=== PATIENT | male | born 1990 | race Two or more races ===

== ENCOUNTER 2017-05-24 17:30 | Inpatient (IN) | payer OTHER ==
[~2017-05-24] VITALS: Ht 177.8 cm; Wt 62.6 kg
[2017-05-24] VITALS (22 sets, daily range): BP systolic 109–205; BP diastolic 45–183
[2017-05-24] MEDS ORDERED: Midazolam 2mg/2ml Inj ONE (17:37)
[2017-05-24] MEDS ORDERED: Midazolam 2mg/2ml Inj IVP ONE ×2 (17:45→19:00)
--- NOTE | 2017-05-24 17:59 | Emergency Room Report ---
History of Present Illness General Chief Complaint: Seizure Source: EMS Present Illness HPI 27-year-old male, no significant past medical history, brought by EMS for not feeling well. When EMS arrived, patient was ANO x4, and routes of the hospital , patient had a generalized tonic-clonic seizure, less than 1 minute, after that patient now altered, yelling and screaming, not responsive. EMS states that patient feels that he took too much of his pre-workout supplementation. Brand name is called "Power Switch". Contains multiple ingredients including caffeine, taurine, green tea, extracts and many more unknown. Allergies: Coded Allergies: No Known Allergies (Unverified , 05/24/17) Patient History Past Medical History: see triage record Past Surgical History: none Pertinent Family History: none Reviewed Nursing Documentation: PMH: Agreed, PSxH: Agreed Nursing Documentation-PMH Past Medical History: No Stated History Review of Systems All Other Systems: limited Physical Exam Vital Signs Date Time Temp Pulse Resp B/P (MAP) Pulse Ox O2 Delivery O2 Flow Rate FiO2 05/24/17 17:23 94 20 148/88 98 Room Air Sp02 EP Interpretation: reviewed, normal General Appearance: severe distress, other - Young male, altered, very agitated , yelling screaming, not responsive, not having any eye contact Head: normocephalic, atraumatic Eyes: bilateral eye normal inspection, bilateral eye PERRL, bilateral eye EOMI ENT: normal ENT inspection, normal pharynx, normal voice, moist mucus membranes Neck: normal inspection, full range of motion, supple, no meningismus Respiratory: normal inspection, lungs clear, normal breath sounds, no respiratory distress, no retraction, no wheezing, speaking full sentences, chest symmetrical Cardiovascular #1: normal inspection, regular rate, rhythm, no edema, normal capillary refill Cardiovascular #2: 2+ radial (R), 2+ radial (L) Gastrointestinal: normal inspection, non tender, soft, non-distended, no guarding Genitourinary: no CVA tenderness Musculoskeletal: back normal, other - R knee effusion noted Neurologic: other - not oriented, screaming, snapping b/l hands, moving all ext spont. +muscle rigidity intermittently Psychiatric: other - agitated and not responsive Skin: normal inspection, normal color, no rash, warm/dry, well hydrated, normal turgor Procedures Critical Care Time Critical Care Time 40 minutes of CC time 27-year-old male, altered mental status, after taking a workout supplement, positive for amphetamines VS: Tachycardic PLAN: IV access, labs, lactate, troponin, Blood/Urine Cx, Abx, IVF Anticipate admission to ICU CC time also includes review of labs, review of EMR, discussion with family and paperwork from SNF, d/w hospitalist CC could include dosing of pressors, additional Abx CC time does not include procedures Intubation Intubation : Consent: Emergent Intubation Method: orotracheal Tube Size (cm): 7.0 Medications: Etomidate, Rocuronium Breath Sounds after Intubation: equal Intubation Complications: no complications Post Intubation Xray: Yes Attempts: One Patient Tolerated: Well Complications: Other - pt with edematous airway, intubated with glidescope with size 7 ETT Lumbar Puncture Consent: Emergent Location: L3-L4 Prep: bedadine Needle Size: 1 1/2 CSF: clear Post-Procedure: recumbent position Attempts: One Complications: none Patient Tolerated: Well Medical Decision Making Diagnostic Impression: Primary Impression: Altered mental status Additional Impressions: Hyponatremia Rhabdomyolysis Methamphetamine abuse Effusion, right knee Hypokalemia ER Course 27-year-old male with p/w seizure, altered mental status, after overdosing on his free workout medication DDX: Electrolyte disturbance: hypoglycemia vs. hyponatremia vs. hypocalcemia vs. hypomagnesemia Cardiac: Arrythmia/acs Intracranial pathology: intracranial bleed, stroke, meningitis Tox vs. serotonin syndrome Plan: BGM EKG, UCG Labs, tox labs Consider CT Ativan PRN / anti seizure meds ER course: received versed for agitation patient intubated for ams and airway protection with 7.0 ETT as patients airway and tongue extremely edematous +hyponatremia noted on labs -- hypertonic saline given over 10 minutes hypertonic saline boluses given x 3 total noted to have rhabdo - NS boluses given to patient hypokalemia supplemented keppra given for seizure I spoke to poison control: stated with overdoses of pre-workout supplementation and seizures, tx with benzos and fluids. also if persisent seizures to give phenobarbital patient still having possible seizure like activity --- phenobarbital given LP performed - pending resulted Signed out patient o Dr Pierce -follow up CSF results -admit to ICU Disposition: Pt to be admitted to ICU Informed Dr. Hammer EKG Diagnostic Results EP Interpretation: Yes Rate: normal Rhythm: NSR ST Segments: No acute changes ASA given to patient: No Rhythm Strip EP Interpretation: Yes Rate: 81 Rhythm: NSR, no PVCs, no ectopy Chest X-ray CXR: Ordered: Yes 1 view Indication: ams EP interpretation: Yes Interpretation: No consolidation, no effusion, no PTX, no acute cardiopulmonary disease Impression: No acute disease Electronically signed by Michi Mancia MD Chest X-ray CXR: Ordered: Yes 1 view Indication: ETT EP interpretation: Yes Interpretation: No consolidation, no effusion, no PTX, no acute cardiopulmonary disease, ETT in appropriate position Impression: No acute disease Electronically signed by Michi Mancia MD Laboratory Tests Test 05/24/17 18:00 05/24/17 19:15 White Blood Count 20.7 K/UL (4.8-10.8) H Red Blood Count 4.04 M/UL (4.70-6.10) L Hemoglobin 12.5 G/DL (14.2-18.0) L Hematocrit 37.0 % (42.0-52.0) L Mean Corpuscular Volume 91 FL (80-99) Mean Corpuscular Hemoglobin 31.0 PG (27.0-31.0) Mean Corpuscular Hemoglobin Concent 33.9 G/DL (32.0-36.0) Red Cell Distribution Width 10.8 % (11.6-14.8) L Platelet Count 254 K/UL (150-450) Mean Platelet Volume 6.4 FL (6.5-10.1) L Neutrophils (%) (Auto) % (45.0-75.0) Lymphocytes (%) (Auto) % (20.0-45.0) Monocytes (%) (Auto) % (1.0-10.0) Eosinophils (%) (Auto) % (0.0-3.0) Basophils (%) (Auto) % (0.0-2.0) Differential Total Cells Counted 100 Neutrophils % (Manual) 64 % (45-75) Lymphocytes % (Manual) 15 % (20-45) L Monocytes % (Manual) 13 % (1-10) H Eosinophils % (Manual) 0 % (0-3) Basophils % (Manual) 0 % (0-2) Band Neutrophils 8 % (0-8) Platelet Estimate Adequate Platelet Morphology Normal Red Blood Cell Morphology Normal Urine Color Pale yellow Urine Appearance Slightly cloudy Urine pH 5 (4.5-8.0) Urine Specific [place] 1.010 (1.005-1.035) Urine Protein Negative (NEGATIVE) Urine Glucose (UA) 3+ (NEGATIVE) H Urine Ketones 3+ (NEGATIVE) H Urine Occult Blood 5+ (NEGATIVE) H Urine Nitrite Negative (NEGATIVE) Urine Bilirubin Negative (NEGATIVE) Urine Urobilinogen Normal MG/DL (0.0-1.0) Urine Leukocyte Esterase Negative (NEGATIVE) Urine RBC 0-2 /HPF (0 - 0) H Urine WBC 0-2 /HPF (0 - 0) Urine Squamous Epithelial Cells None /LPF (NONE/OCC) Urine Amorphous Sediment Moderate /LPF (NONE) H Urine Bacteria Few /HPF (NONE) Troponin I 0.000 ng/mL (0.000-0.056) Urine Opiates Screen Negative (NEGATIVE) Urine Barbiturates Screen Negative (NEGATIVE) Phencyclidine (PCP) Screen Negative (NEGATIVE) Urine Amphetamines Screen Positive (NEGATIVE) H Urine Benzodiazepines Screen Negative (NEGATIVE) Urine Cocaine Screen Negative (NEGATIVE) Urine Marijuana (THC) Screen Negative (NEGATIVE) Sodium Level 111 MMOL/L (136-145) *L Potassium Level 3.0 MMOL/L (3.5-5.1) L Chloride Level 78 MMOL/L (98-107) L Carbon Dioxide Level 21 MMOL/L (21-32) Anion Gap 12 mmol/L (5-15) Blood Urea Nitrogen 9 mg/dL (7-18) Creatinine 1.1 MG/DL (0.55-1.30) Estimate Glomerular Filtration Rate > 60 mL/min (>60) Glucose Level 182 MG/DL (74-106) H Lactic Acid Level 4.50 mmol/L (0.66-2.22) H Calcium Level 7.2 MG/DL (8.5-10.1) L Total Bilirubin 0.3 MG/DL (0.2-1.0) Aspartate Amino Transferase (AST) 83 U/L (15-37) H Alanine Aminotransferase (ALT) 31 U/L (12-78) Alkaline Phosphatase 101 U/L (46-116) Total Creatine Kinase 3402 U/L (26-308) H Total Protein 6.9 G/DL (6.4-8.2) Albumin 3.6 G/DL (3.4-5.0) Globulin 3.3 g/dL Albumin/Globulin Ratio 1.1 (1.0-2.7) Triglycerides Level 53 MG/DL (30-150) Salicylates Level 2.8 ug/mL (2.8-20) Acetaminophen Level < 2 MCG/ML (10-30) L Serum Alcohol < 3 mg/dL Last Vital Signs Date Time Temp Pulse Resp B/P (MAP) Pulse Ox O2 Delivery O2 Flow Rate FiO2 05/24/17 17:23 94 20 148/88 98 Room Air Disposition: ADMITTED INPATIENT Condition: Critical Scripts No Active Prescriptions or Reported Meds Referrals: NOT CHOSEN [facility]/,REFERRING (PCP) Michi Mancia M.D. May 24, 2017 17:59
[2017-05-24 18:17] LABS: APPEARANCE,URINE SLIGHTLY CLOUDY; BILIRUBIN, URINE NEGATIVE (NEGATIVE); COLOR,URINE PALE YELLOW; GLUCOSE, URINE (UA) 3+ (NEGATIVE); HEMOGLOBIN 12.5 G/DL (14.2-18.0); KETONES,URINE 3+ (NEGATIVE); LEUKOCYTE ESTERASE ,URINE NEGATIVE (NEGATIVE); MEAN CORPUSCULAR VOLUME 91 FL (80-99); NITRITE,URINE NEGATIVE (NEGATIVE); PH,URINE 5 (4.5-8.0); PLATELET COUNT 254 K/UL (150-450); PROTEIN,URINE NEGATIVE (NEGATIVE); RED BLOOD COUNT 4.04 M/UL (4.70-6.10); RED CELL DISTRIBUTION WIDTH 10.8 % (11.6-14.8); UROBILINOGEN,URINE NORMAL MG/DL (0.0-1.0); WHITE BLOOD COUNT 20.7 K/UL (4.8-10.8)
--- NOTE | 2017-05-24 19:05 | Diagnostic Imaging Report ---
Indication: Altered mental status Technique: XRAY Chest 1v Comparison: None Findings: Heart size and mediastinal contours are within normal limits given technique. There is no focal consolidation, pneumothorax or pleural effusion. Osseous structures demonstrate no acute abnormality. Impression: No radiographic evidence of acute cardiopulmonary disease.
--- NOTE | 2017-05-24 19:41 | Diagnostic Imaging Report ---
Indication: Altered mental status Technique: Continuous helical CT scanning of the head was performed utilizing automated exposure control without intravenous contrast material. Axial and coronal reconstructions were obtained. Comparison: None CT dose: Total DLP 1418.31 mGycm; CTDI vol 70.38 mGy Findings: There is no acute intracranial hemorrhage, mass effect or cortical edema. The ventricles, cisterns and sulci are normal for age. The posterior fossa and fourth ventricle are unremarkable. Sellar and suprasellar regions are grossly unremarkable. There is no depressed skull fracture. Mastoid air cells are clear. Mucosal thickening noted within the maxillary sinuses. Retention cyst versus polyp noted within the right frontal sinus. Impression: No evidence of acute intracranial hemorrhage, mass effect or cortical edema. MRI may be obtained for more sensitive evaluation as clinically indicated. Paranasal sinus disease. The CT scanner at [facility] is accredited by the [employer] and the scans are performed using protocols designed to limit radiation exposure to as low as reasonably achievable to attain images of sufficient resolution adequate for diagnostic evaluation.
[2017-05-24] MEDS ORDERED: DiphenhydrAMINE 50mg/ml Inj IVP ONE (20:00)
[2017-05-24] MEDS ORDERED: LORazepam Inj 2mg/ml 1ml IV ONE ×2 (20:00→22:00)
[2017-05-24 20:06] LABS: ALANINE AMINOTRANSFERASE 31 U/L (12-78); ALBUMIN 3.6 G/DL (3.4-5.0); ALBUMIN/GLOBULIN RATIO 1.1 (1.0-2.7); ALKALINE PHOSPHATASE 101 U/L (46-116); ANION GAP 12 mmol/L (5-15); ASPARTATE AMINO TRANSFERASE 83 U/L (15-37); BILIRUBIN,TOTAL 0.3 MG/DL (0.2-1.0); BLOOD UREA NITROGEN 9 mg/dL (7-18); CALCIUM 7.2 MG/DL (8.5-10.1); CARBON DIOXIDE 21 MMOL/L (21-32); CHLORIDE 78 MMOL/L (98-107); CREATINE KINASE 3402 U/L (26-308); CREATININE 1.1 MG/DL (0.55-1.30)
[2017-05-24 20:07] LABS: SODIUM 111 MMOL/L (136-145)
[2017-05-24] MEDS ORDERED: NaCl 3% 500ml 250 ML IVPB ONE ×3 (20:15→21:45)
[2017-05-24] MEDS ORDERED: Zemuron 50mg/5ml Inj IV ONE ×2 (20:15→21:30)
[2017-05-24] MEDS ORDERED: Etomidate 40mg/20ml Inj IV ONE (20:30)
[2017-05-24] MEDS ORDERED: NACL 3% IV ONE ×2 (20:30→22:00)
[2017-05-24] MEDS ORDERED: levETIRAcetam 1,500 MG in D5W 95 ML IVPB ONE (21:45)
[2017-05-24] MEDS ORDERED: NACL 3% IV PRN (22:00)
[2017-05-24] MEDS ORDERED: Midazolam/D5W 100ml 100 ML IVPB SCH (22:15)
[2017-05-24] MEDS ORDERED: levETIRAcetam 500mg vial IV ONE (23:22)
[2017-05-24 23:47] LABS: HEMATOCRIT 39.7 % (42.0-52.0); HEMOGLOBIN 13.9 G/DL (14.2-18.0); MEAN CORPUSCULAR VOLUME 89 FL (80-99); PLATELET COUNT 257 K/UL (150-450); RED BLOOD COUNT 4.46 M/UL (4.70-6.10); RED CELL DISTRIBUTION WIDTH 10.3 % (11.6-14.8)
[2017-05-24 23:53] LABS: ANION GAP 13 mmol/L (5-15); BLOOD UREA NITROGEN 8 mg/dL (7-18); CALCIUM 6.9 MG/DL (8.5-10.1); CARBON DIOXIDE 21 MMOL/L (21-32); CHLORIDE 82 MMOL/L (98-107); POTASSIUM 3.6 MMOL/L (3.5-5.1)
[2017-05-24 23:59] LABS: SODIUM 116 MMOL/L (136-145)
[2017-05-25] VITALS (64 sets, daily range): BP systolic 97–152; BP diastolic 34–125
--- NOTE | 2017-05-25 00:23 | Emergency Room Report ---
Physical Exam Vital Signs Date Time Temp Pulse Resp B/P (MAP) Pulse Ox O2 Delivery O2 Flow Rate FiO2 05/24/17 17:23 94 20 148/88 98 Room Air 05/24/17 20:40 60 Medical Decision Making Diagnostic Impression: Primary Impression: Altered mental status Additional Impressions: Effusion, right knee Hyponatremia Rhabdomyolysis Methamphetamine abuse Hypokalemia Patellar tendon rupture Lactic acidosis ER Course Patient signed out to me. He came in very active and encephalopathy. He has seizure activity. This most likely secondary to substance abuse and/or from his workout supplements. Question GHB abuse. Patient was intubated. On exam noted to have effusion of his right knee. He was signout to me for x-rays and disposition. He is awaiting ICU bed. On my exam he has effusion to the knee. This range of motion. Patella is high riding. X-ray showed patella tendon rupture. No other fracture. There is effusion. CSF fluid looks clear and no evidence of infection. I will give him more fluid. procedure: Knee Immobilizer indication: Knee injury Description: Knee immobilizer placed the photographic laboratory technician under my supervision. post- splint check is neurovascularly intact. Good alignment. Patient tolerated seizure without a problem Other X-Ray Diagnostic Results Other X-Ray Diagnostic Results : X-Ray ordered: Right knee x-ray # of Views/Limited Vs Complete: 3 View Indication: Pain EP Interpretation: Yes Interpretation: no dislocation, no fractures, other Impression: Other - Patella tendon rupture Electronically Signed by: Dean Pierce MD Last Vital Signs Date Time Temp Pulse Resp B/P (MAP) Pulse Ox O2 Delivery O2 Flow Rate FiO2 05/24/17 22:52 16 05/24/17 20:40 96 60 05/24/17 20:40 Mechanical Ventilator 05/24/17 17:23 148/88 98 Status: improved Disposition: ADMITTED INPATIENT Condition: Critical Scripts No Active Prescriptions or Reported Meds Referrals: NOT CHOSEN [facility]SEL[facility]O/,REFERRING (PCP) DEAN PIERCE M.D. May 25, 2017 00:23
[2017-05-25] MEDS ORDERED: Midazolam/D5W 100ml 100 ML IVPB ONE ×2 (03:15→06:23)
[2017-05-25 05:49] LABS: BASOPHILS % (AUTO) 0.3 % (0.0-2.0); EOSINOPHILS % (AUTO) 0.1 % (0.0-3.0); HEMATOCRIT 37.6 % (42.0-52.0); LYMPHOCYTES % (AUTO) 8.4 % (20.0-45.0); MEAN CORPUSCULAR VOLUME 89 FL (80-99); MONOCYTES % (AUTO) 13.1 % (1.0-10.0); NEUTROPHILS % (AUTO) 78.1 % (45.0-75.0); PLATELET COUNT 231 K/UL (150-450); RED BLOOD COUNT 4.23 M/UL (4.70-6.10); RED CELL DISTRIBUTION WIDTH 10.6 % (11.6-14.8); WHITE BLOOD COUNT 12.3 K/UL (4.8-10.8)
[2017-05-25 06:17] LABS: ALANINE AMINOTRANSFERASE 38 U/L (12-78); ALBUMIN 2.9 G/DL (3.4-5.0); ALKALINE PHOSPHATASE 88 U/L (46-116); ANION GAP 8 mmol/L (5-15); ASPARTATE AMINO TRANSFERASE 131 U/L (15-37); BILIRUBIN,TOTAL 0.4 MG/DL (0.2-1.0); BLOOD UREA NITROGEN 6 mg/dL (7-18); CALCIUM 7.3 MG/DL (8.5-10.1); CARBON DIOXIDE 23 MMOL/L (21-32); CHLORIDE 97 MMOL/L (98-107); CREATINE KINASE 7393 U/L (26-308); CREATININE 0.9 MG/DL (0.55-1.30); POTASSIUM 3.6 MMOL/L (3.5-5.1); SODIUM 128 MMOL/L (136-145); TRIGLYCERIDES 53 MG/DL (30-150)
--- NOTE | 2017-05-25 07:24 | Emergency Room Report ---
History of Present Illness General Chief Complaint: Seizure Source: EMS Present Illness Allergies: Coded Allergies: No Known Allergies (Unverified , 05/24/17) Nursing Documentation-[facility] Past Medical History: No Stated History Physical Exam Vital Signs Date Time Temp Pulse Resp B/P (MAP) Pulse Ox O2 Delivery O2 Flow Rate FiO2 05/24/17 17:23 94 20 148/88 98 Room Air 05/24/17 20:40 60 05/25/17 01:54 97.8 Procedures Critical Care Time Critical Care Time CC time 35 Critical care time endorsed for this patient for AMS thought d/t workout supplement/amphetamines Critical care time includes review of laboratory tests, imaging, review of EMR, review of paperwork from SNF (if available), discussion with patient and family (if available), review of code status/POLS (if available). Critical care time also likely includes assessment of fluid status, stabilization of vital signs, selection and dosing of appropriate antibiotics, selection and dosing of Aspirin/Plavix/Heparin/Lovenox, discussion with PMD/ attending hospitalist/sew out operator. Critical care time does not include any procedures which are documented elsewhere in this EMR. Medical Decision Making Diagnostic Impression: Primary Impression: Altered mental status Additional Impressions: Effusion, right knee Patellar tendon rupture Hyponatremia Rhabdomyolysis Methamphetamine abuse Hypokalemia Lactic acidosis ER Course Received signout from Dr Pierce at 630am Labs reviewed, imaging reviewed - Hyponatremia improving after hypertonic saline - LP negative for infection - Right knee with likely patella tendon rupture-immobilizer was placed - Admitted to ICU with Dr Hammer - Patient continues to board in the ED - Is stable on versed gtt - ABG stable - Gtube was placed by overnight nurse without confirmatory xray - ordered and reviewed, Gtube in place. Rhythm Strip Diag. Results EP Interpretation: yes Rate: 97 Rhythm: NSR, no PVC's, no ectopy Other X-Ray Diagnostic Results Other X-Ray Diagnostic Results : # of Views/Limited Vs Complete: 1 View Indication: Other - Gtbe EP Interpretation: Yes Interpretation: nonspecific bowel gas, other - Gtube in place Impression: No acute disease Electronically Signed by: Dr Stevo Villalobos MD Last Vital Signs Date Time Temp Pulse Resp B/P (MAP) Pulse Ox O2 Delivery O2 Flow Rate FiO2 05/25/17 05:30 99 25 40 05/25/17 01:54 97.8 130/34 98 Mechanical Ventilator Status: improved Disposition: ADMITTED INPATIENT Condition: Critical Scripts No Active Prescriptions or Reported Meds Referrals: NOT CHOSEN [facility]O/,REFERRING (PCP) STEVO VILLALOBOS M.D. May 25, 2017 07:24
--- NOTE | 2017-05-25 07:34 | History & Physical ---
History and Physical History & Physicial 27-year-old male, without significant past medical history, brought by EMS and initially alert and then the patient had a generalized tonic-clonic seizure. The patient became agitated and then became unresponsive. Paramedics states that patient feels that he took too much of his pre-workout supplementation. Brand name is called "Power Switch". Contains multiple ingredients including caffeine, taurine, green tea, extracts and many more unknown. currently on the ventilator and on sedation. Allergies: No Known Allergies (Unverified , 05/24/17) Past Medical History: unknown Past Surgical History: none Pertinent Family History: none Reviewed of systems: unknown Physical WDWN NAD clear breath sounds bilaterally without rhonchi or wheeze [id number] without MRG NABS nontender no HSM no CCE nonfocal sedated Laboratory Tests Test 05/24/17 18:00 05/24/17 19:15 05/24/17 21:45 05/24/17 22:26 White Blood Count 20.7 K/UL (4.8-10.8) H 25.0 K/UL (4.8-10.8) *H Red Blood Count 4.04 M/UL (4.70-6.10) L 4.46 M/UL (4.70-6.10) L Hemoglobin 12.5 G/DL (14.2-18.0) L 13.9 G/DL (14.2-18.0) L Hematocrit 37.0 % (42.0-52.0) L 39.7 % (42.0-52.0) L Mean Corpuscular Volume 91 FL (80-99) 89 FL (80-99) Mean Corpuscular Hemoglobin 31.0 PG (27.0-31.0) 31.3 PG (27.0-31.0) H Mean Corpuscular Hemoglobin Concent 33.9 G/DL (32.0-36.0) 35.1 G/DL (32.0-36.0) Red Cell Distribution Width 10.8 % (11.6-14.8) L 10.3 % (11.6-14.8) L Platelet Count 254 K/UL (150-450) 257 K/UL (150-450) Mean Platelet Volume 6.4 FL (6.5-10.1) L 7.0 FL (6.5-10.1) Neutrophils (%) (Auto) % (45.0-75.0) % (45.0-75.0) Lymphocytes (%) (Auto) % (20.0-45.0) % (20.0-45.0) Monocytes (%) (Auto) % (1.0-10.0) % (1.0-10.0) Eosinophils (%) (Auto) % (0.0-3.0) % (0.0-3.0) Basophils (%) (Auto) % (0.0-2.0) % (0.0-2.0) Differential Total Cells Counted 100 100 Neutrophils % (Manual) 64 % (45-75) 91 % (45-75) H Lymphocytes % (Manual) 15 % (20-45) L 5 % (20-45) L Monocytes % (Manual) 13 % (1-10) H 3 % (1-10) Eosinophils % (Manual) 0 % (0-3) 0 % (0-3) Basophils % (Manual) 0 % (0-2) 0 % (0-2) Band Neutrophils 8 % (0-8) 1 % (0-8) Platelet Estimate Adequate Adequate Platelet Morphology Normal Normal Red Blood Cell Morphology Normal Urine Color Pale yellow Urine Appearance Slightly cloudy Urine pH 5 (4.5-8.0) Urine Specific [place] 1.010 (1.005-1.035) Urine Protein Negative (NEGATIVE) Urine Glucose (UA) 3+ (NEGATIVE) H Urine Ketones 3+ (NEGATIVE) H Urine Occult Blood 5+ (NEGATIVE) H Urine Nitrite Negative (NEGATIVE) Urine Bilirubin Negative (NEGATIVE) Urine Urobilinogen Normal MG/DL (0.0-1.0) Urine Leukocyte Esterase Negative (NEGATIVE) Urine RBC 0-2 /HPF (0 - 0) H Urine WBC 0-2 /HPF (0 - 0) Urine Squamous Epithelial Cells None /LPF (NONE/OCC) Urine Amorphous Sediment Moderate /LPF (NONE) H Urine Bacteria Few /HPF (NONE) Troponin I 0.000 ng/mL (0.000-0.056) Urine Opiates Screen Negative (NEGATIVE) Urine Barbiturates Screen Negative (NEGATIVE) Phencyclidine (PCP) Screen Negative (NEGATIVE) Urine Amphetamines Screen Positive (NEGATIVE) H Urine Benzodiazepines Screen Negative (NEGATIVE) Urine Cocaine Screen Negative (NEGATIVE) Urine Marijuana (THC) Screen Negative (NEGATIVE) Sodium Level 111 MMOL/L (136-145) *L 116 MMOL/L (136-145) *L Potassium Level 3.0 MMOL/L (3.5-5.1) L 3.6 MMOL/L (3.5-5.1) Chloride Level 78 MMOL/L (98-107) L 82 MMOL/L (98-107) L Carbon Dioxide Level 21 MMOL/L (21-32) 21 MMOL/L (21-32) Anion Gap 12 mmol/L (5-15) 13 mmol/L (5-15) Blood Urea Nitrogen 9 mg/dL (7-18) 8 mg/dL (7-18) Creatinine 1.1 MG/DL (0.55-1.30) 1.0 MG/DL (0.55-1.30) Estimat Glomerular Filtration Rate > 60 mL/min (>60) > 60 mL/min (>60) Glucose Level 182 MG/DL (74-106) H 156 MG/DL (74-106) H Lactic Acid Level 4.50 mmol/L (0.66-2.22) H 6.80 mmol/L (0.66-2.22) H Calcium Level 7.2 MG/DL (8.5-10.1) L 6.9 MG/DL (8.5-10.1) L Total Bilirubin 0.3 MG/DL (0.2-1.0) Aspartate Amino Transf (AST/SGOT) 83 U/L (15-37) H Alanine Aminotransferase (ALT/SGPT) 31 U/L (12-78) Alkaline Phosphatase 101 U/L (46-116) Total Creatine Kinase 3402 U/L (26-308) H Total Protein 6.9 G/DL (6.4-8.2) Albumin 3.6 G/DL (3.4-5.0) Globulin 3.3 g/dL Albumin/Globulin Ratio 1.1 (1.0-2.7) Triglycerides Level 53 MG/DL (30-150) Salicylates Level 2.8 ug/mL (2.8-20) Acetaminophen Level < 2 MCG/ML (10-30) L Serum Alcohol < 3 mg/dL Arterial Blood pH 7.377 (7.350-7.450) Arterial Blood Partial Pressure CO2 29.3 mmHg (35.0-45.0) L Arterial Blood Partial Pressure O2 126.2 mmHg (75.0-100.0) H Arterial Blood HCO3 16.8 mmol/L (22.0-26.0) L Arterial Blood Oxygen Saturation 98.1 % (92.0-98.0) H Arterial Blood Base Excess -7.0 Santino Test Positive Test 05/24/17 22:45 05/25/17 05:00 05/25/17 05:47 CSF Appearance Clear CSF Color Straw CSF WBC 2 /CU MM (0-5) CSF RBC 2 /CU MM CSF Neutrophils % % CSF Lymphocytes % % CSF Monocytes % % CSF Crenated Cells % CSF Comment 6 ml CSF Glucose 83 mg/dL (50-80) H CSF Total Protein 42 MG/DL (15-45) White Blood Count 12.3 K/UL (4.8-10.8) #H Red Blood Count 4.23 M/UL (4.70-6.10) L Hemoglobin 13.0 G/DL (14.2-18.0) L Hematocrit 37.6 % (42.0-52.0) L Mean Corpuscular Volume 89 FL (80-99) Mean Corpuscular Hemoglobin 30.7 PG (27.0-31.0) Mean Corpuscular Hemoglobin Concent 34.5 G/DL (32.0-36.0) Red Cell Distribution Width 10.6 % (11.6-14.8) L Platelet Count 231 K/UL (150-450) Mean Platelet Volume 7.6 FL (6.5-10.1) Neutrophils (%) (Auto) 78.1 % (45.0-75.0) H Lymphocytes (%) (Auto) 8.4 % (20.0-45.0) L Monocytes (%) (Auto) 13.1 % (1.0-10.0) H Eosinophils (%) (Auto) 0.1 % (0.0-3.0) Basophils (%) (Auto) 0.3 % (0.0-2.0) Sodium Level 128 MMOL/L (136-145) #L Potassium Level 3.6 MMOL/L (3.5-5.1) Chloride Level 97 MMOL/L (98-107) L Carbon Dioxide Level 23 MMOL/L (21-32) Anion Gap 8 mmol/L (5-15) Blood Urea Nitrogen 6 mg/dL (7-18) L Creatinine 0.9 MG/DL (0.55-1.30) Estimat Glomerular Filtration Rate > 60 mL/min (>60) Glucose Level 126 MG/DL (74-106) H Lactic Acid Level 1.60 mmol/L (0.66-2.22) Calcium Level 7.3 MG/DL (8.5-10.1) L Phosphorus Level 3.0 MG/DL (2.5-4.9) Magnesium Level 1.1 MG/DL (1.8-2.4) L Total Bilirubin 0.4 MG/DL (0.2-1.0) Aspartate Amino Transf (AST/SGOT) 131 U/L (15-37) H Alanine Aminotransferase (ALT/SGPT) 38 U/L (12-78) Alkaline Phosphatase 88 U/L (46-116) Total Creatine Kinase 7393 U/L (26-308) H Total Protein 5.8 G/DL (6.4-8.2) L Albumin 2.9 G/DL (3.4-5.0) L Globulin 2.9 g/dL Albumin/Globulin Ratio 1.0 (1.0-2.7) Triglycerides Level 53 MG/DL (30-150) Arterial Blood pH 7.450 (7.350-7.450) Arterial Blood Partial Pressure CO2 29.3 mmHg (35.0-45.0) L Arterial Blood Partial Pressure O2 194.4 mmHg (75.0-100.0) H Arterial Blood HCO3 19.9 mmol/L (22.0-26.0) L Arterial Blood Oxygen Saturation 99.0 % (92.0-98.0) H Arterial Blood Base Excess -2.9 Santino Test Positive IMPRESSION leukocytosis, likely leukomoid respiratory failure acute encephalopathy seizure hyponatremia rhabdo PLAN IV hydration ventilator management neuro evaluation propofol and fentanyl ativan PRN medications/laboratory data/nursing notes/ICU care reviewed in detail note reviewed and edited care discussed with RN and RT DONNA OLIVA May 25, 2017 07:34
[2017-05-25] MEDS: Midazolam/D5W 100ml 100 ML IVPB SCH ×3 (08:50→14:39)
[2017-05-25] MEDS: levETIRAcetam 500mg/NS100ml 100 ML IVPB SCH ×3 (08:50→19:44)
[2017-05-25] MEDS: Heparin 5000 units/ml inj SUBQ SCH ×2 (08:52→20:08)
--- NOTE | 2017-05-25 09:07 | Diagnostic Imaging Report ---
Indication: NG tube placement Technique: XRAY Chest 1v Comparison: None Findings: Interval NG tube placement. Tip likely in the region of the mid/distal stomach. Heart size is within normal limits. No focal airspace consolidation identified. Bowel gas pattern is nonobstructive. Impression: Interval NG tube placement. Tip in the region of the mid/distal stomach
[2017-05-25] MEDS: Sodium Bicarbonate 100 ML in NS 1000ml 1,000 ML IV SCH ×3 (09:33→23:51)
--- NOTE | 2017-05-25 09:58 | Diagnostic Imaging Report ---
Indication: Status post intubation Technique: XRAY Chest 1v Comparison: Earlier the same day Findings: Interval endotracheal intubation. ET tube tip 3.5 cm above the leo. Heart size and mediastinal contours are stable. There is mild pulmonary vascular congestion. No focal consolidation. No pneumothorax. Impression: Interval endotracheal intubation. ET tube tip 3.5 cm above the leo.
--- NOTE | 2017-05-25 10:27 | Diagnostic Imaging Report ---
Indication: Pain Technique: XRAY Knee 1-2v R Comparison: None Findings: Exam limited by positioning, with obliquity on frontal view and lack of true lateral view. There is significant soft tissue swelling overlying the patella. The patella appears high and laterally displaced. No acute fractures identified Impression: Limited exam due to positioning. Significant soft tissue swelling anterior to the patella with high and lateral location of the patella. These findings may be suggestive of patellar tendon injury/rupture or lateral patellar dislocation. Correlation with physical exam recommended. Better evaluation with complete knee series radiographs recommended or MRI recommended. This corresponds with the preliminary interpretation by the ER physician as documented in the electronic medical record with minor discrepancy. Patient admitted to hospital at time of dictation of the final report.
[2017-05-25] MEDS ORDERED: Acetaminophen 650 MG SUPP RECTAL ONE (10:46)
[2017-05-25] MEDS ORDERED: cefTRIAXone 1 GM in NS 55 ML IVPB ONE (12:15)
--- NOTE | 2017-05-25 12:35 | Emergency Room Report ---
History of Present Illness General Chief Complaint: Seizure Source: EMS Present Illness Allergies: Coded Allergies: No Known Allergies (Unverified , 05/24/17) Nursing Documentation-[facility] Past Medical History: No Stated History Physical Exam Vital Signs Date Time Temp Pulse Resp B/P (MAP) Pulse Ox O2 Delivery O2 Flow Rate FiO2 05/24/17 17:23 94 20 148/88 98 Room Air 05/24/17 20:40 60 05/24/17 22:40 95.0 Procedures Central Line Central Line : Consent: Emergent Central Line Lumen: triple Maximal Sterile Barrier Tech: yes cap, yes mask, yes sterile gown, yes sterile gloves, yes large sterile sheet, yes hand hygiene, yes chlorhexidine prep No Max Barrier Tech Because: emergency insertion Central Line Postion: femoral (R) Complications: none Central Line Post Position: sutured, good blood return Attempts: One Patient Tolerated: Well Complications: None Medical Decision Making Diagnostic Impression: Primary Impression: Altered mental status Additional Impressions: Effusion, right knee Patellar tendon rupture Hyponatremia Rhabdomyolysis Methamphetamine abuse Hypokalemia Lactic acidosis ER Course Informed by staffing assistant that patient developing phlebitis? vs rash to peripheral IVs where IV versed sedation being given. Central line placed and versed transitioned from peripheral IV to central line. Last Vital Signs Date Time Temp Pulse Resp B/P (MAP) Pulse Ox O2 Delivery O2 Flow Rate FiO2 05/25/17 11:30 21 05/25/17 10:35 95 40 05/25/17 10:00 99.5 112/52 100 Mechanical Ventilator Disposition: ADMITTED INPATIENT Condition: Critical Scripts No Active Prescriptions or Reported Meds Referrals: NOT CHOSEN IPA/,REFERRING (PCP) STEVO VERNON M.D. May 25, 2017 12:35
--- NOTE | 2017-05-25 13:27 | Neurology Progress Note ---
Objective Physical Exam Last Vital Signs Date Time Temp Pulse Resp B/P (MAP) Pulse Ox O2 Delivery O2 Flow Rate FiO2 05/25/17 13:00 100.5 105 18 108/55 99 Mechanical Ventilator 40 Laboratory Tests Test 05/24/17 18:00 05/24/17 19:15 05/24/17 21:45 05/24/17 22:26 White Blood Count 20.7 K/UL (4.8-10.8) H 25.0 K/UL (4.8-10.8) *H Red Blood Count 4.04 M/UL (4.70-6.10) L 4.46 M/UL (4.70-6.10) L Hemoglobin 12.5 G/DL (14.2-18.0) L 13.9 G/DL (14.2-18.0) L Hematocrit 37.0 % (42.0-52.0) L 39.7 % (42.0-52.0) L Mean Corpuscular Volume 91 FL (80-99) 89 FL (80-99) Mean Corpuscular Hemoglobin 31.0 PG (27.0-31.0) 31.3 PG (27.0-31.0) H Mean Corpuscular Hemoglobin Concent 33.9 G/DL (32.0-36.0) 35.1 G/DL (32.0-36.0) Red Cell Distribution Width 10.8 % (11.6-14.8) L 10.3 % (11.6-14.8) L Platelet Count 254 K/UL (150-450) 257 K/UL (150-450) Mean Platelet Volume 6.4 FL (6.5-10.1) L 7.0 FL (6.5-10.1) Neutrophils (%) (Auto) % (45.0-75.0) % (45.0-75.0) Lymphocytes (%) (Auto) % (20.0-45.0) % (20.0-45.0) Monocytes (%) (Auto) % (1.0-10.0) % (1.0-10.0) Eosinophils (%) (Auto) % (0.0-3.0) % (0.0-3.0) Basophils (%) (Auto) % (0.0-2.0) % (0.0-2.0) Differential Total Cells Counted 100 100 Neutrophils % (Manual) 64 % (45-75) 91 % (45-75) H Lymphocytes % (Manual) 15 % (20-45) L 5 % (20-45) L Monocytes % (Manual) 13 % (1-10) H 3 % (1-10) Eosinophils % (Manual) 0 % (0-3) 0 % (0-3) Basophils % (Manual) 0 % (0-2) 0 % (0-2) Band Neutrophils 8 % (0-8) 1 % (0-8) Platelet Estimate Adequate Adequate Platelet Morphology Normal Normal Red Blood Cell Morphology Normal Urine Color Pale yellow Urine Appearance Slightly cloudy Urine pH 5 (4.5-8.0) Urine Specific [place] 1.010 (1.005-1.035) Urine Protein Negative (NEGATIVE) Urine Glucose (UA) 3+ (NEGATIVE) H Urine Ketones 3+ (NEGATIVE) H Urine Occult Blood 5+ (NEGATIVE) H Urine Nitrite Negative (NEGATIVE) Urine Bilirubin Negative (NEGATIVE) Urine Urobilinogen Normal MG/DL (0.0-1.0) Urine Leukocyte Esterase Negative (NEGATIVE) Urine RBC 0-2 /HPF (0 - 0) H Urine WBC 0-2 /HPF (0 - 0) Urine Squamous Epithelial Cells None /LPF (NONE/OCC) Urine Amorphous Sediment Moderate /LPF (NONE) H Urine Bacteria Few /HPF (NONE) Troponin I 0.000 ng/mL (0.000-0.056) Urine Opiates Screen Negative (NEGATIVE) Urine Barbiturates Screen Negative (NEGATIVE) Phencyclidine (PCP) Screen Negative (NEGATIVE) Urine Amphetamines Screen Positive (NEGATIVE) H Urine Benzodiazepines Screen Negative (NEGATIVE) Urine Cocaine Screen Negative (NEGATIVE) Urine Marijuana (THC) Screen Negative (NEGATIVE) Sodium Level 111 MMOL/L (136-145) *L 116 MMOL/L (136-145) *L Potassium Level 3.0 MMOL/L (3.5-5.1) L 3.6 MMOL/L (3.5-5.1) Chloride Level 78 MMOL/L (98-107) L 82 MMOL/L (98-107) L Carbon Dioxide Level 21 MMOL/L (21-32) 21 MMOL/L (21-32) Anion Gap 12 mmol/L (5-15) 13 mmol/L (5-15) Blood Urea Nitrogen 9 mg/dL (7-18) 8 mg/dL (7-18) Creatinine 1.1 MG/DL (0.55-1.30) 1.0 MG/DL (0.55-1.30) Estimat Glomerular Filtration Rate > 60 mL/min (>60) > 60 mL/min (>60) Glucose Level 182 MG/DL (74-106) H 156 MG/DL (74-106) H Lactic Acid Level 4.50 mmol/L (0.66-2.22) H 6.80 mmol/L (0.66-2.22) H Calcium Level 7.2 MG/DL (8.5-10.1) L 6.9 MG/DL (8.5-10.1) L Total Bilirubin 0.3 MG/DL (0.2-1.0) Aspartate Amino Transf (AST/SGOT) 83 U/L (15-37) H Alanine Aminotransferase (ALT/SGPT) 31 U/L (12-78) Alkaline Phosphatase 101 U/L (46-116) Total Creatine Kinase 3402 U/L (26-308) H Total Protein 6.9 G/DL (6.4-8.2) Albumin 3.6 G/DL (3.4-5.0) Globulin 3.3 g/dL Albumin/Globulin Ratio 1.1 (1.0-2.7) Triglycerides Level 53 MG/DL (30-150) Salicylates Level 2.8 ug/mL (2.8-20) Acetaminophen Level < 2 MCG/ML (10-30) L Serum Alcohol < 3 mg/dL Arterial Blood pH 7.377 (7.350-7.450) Arterial Blood Partial Pressure CO2 29.3 mmHg (35.0-45.0) L Arterial Blood Partial Pressure O2 126.2 mmHg (75.0-100.0) H Arterial Blood HCO3 16.8 mmol/L (22.0-26.0) L Arterial Blood Oxygen Saturation 98.1 % (92.0-98.0) H Arterial Blood Base Excess -7.0 Santino Test Positive Test 05/24/17 22:45 05/25/17 05:00 05/25/17 05:47 CSF Appearance Clear CSF Color Straw CSF WBC 2 /CU MM (0-5) CSF RBC 2 /CU MM CSF Neutrophils % % CSF Lymphocytes % % CSF Monocytes % % CSF Crenated Cells % CSF Comment 6 ml CSF Glucose 83 mg/dL (50-80) H CSF Total Protein 42 MG/DL (15-45) White Blood Count 12.3 K/UL (4.8-10.8) #H Red Blood Count 4.23 M/UL (4.70-6.10) L Hemoglobin 13.0 G/DL (14.2-18.0) L Hematocrit 37.6 % (42.0-52.0) L Mean Corpuscular Volume 89 FL (80-99) Mean Corpuscular Hemoglobin 30.7 PG (27.0-31.0) Mean Corpuscular Hemoglobin Concent 34.5 G/DL (32.0-36.0) Red Cell Distribution Width 10.6 % (11.6-14.8) L Platelet Count 231 K/UL (150-450) Mean Platelet Volume 7.6 FL (6.5-10.1) Neutrophils (%) (Auto) 78.1 % (45.0-75.0) H Lymphocytes (%) (Auto) 8.4 % (20.0-45.0) L Monocytes (%) (Auto) 13.1 % (1.0-10.0) H Eosinophils (%) (Auto) 0.1 % (0.0-3.0) Basophils (%) (Auto) 0.3 % (0.0-2.0) Sodium Level 128 MMOL/L (136-145) #L Potassium Level 3.6 MMOL/L (3.5-5.1) Chloride Level 97 MMOL/L (98-107) L Carbon Dioxide Level 23 MMOL/L (21-32) Anion Gap 8 mmol/L (5-15) Blood Urea Nitrogen 6 mg/dL (7-18) L Creatinine 0.9 MG/DL (0.55-1.30) Estimat Glomerular Filtration Rate > 60 mL/min (>60) Glucose Level 126 MG/DL (74-106) H Lactic Acid Level 1.60 mmol/L (0.66-2.22) Calcium Level 7.3 MG/DL (8.5-10.1) L Phosphorus Level 3.0 MG/DL (2.5-4.9) Magnesium Level 1.1 MG/DL (1.8-2.4) L Total Bilirubin 0.4 MG/DL (0.2-1.0) Aspartate Amino Transf (AST/SGOT) 131 U/L (15-37) H Alanine Aminotransferase (ALT/SGPT) 38 U/L (12-78) Alkaline Phosphatase 88 U/L (46-116) Total Creatine Kinase 7393 U/L (26-308) H Total Protein 5.8 G/DL (6.4-8.2) L Albumin 2.9 G/DL (3.4-5.0) L Globulin 2.9 g/dL Albumin/Globulin Ratio 1.0 (1.0-2.7) Triglycerides Level 53 MG/DL (30-150) Arterial Blood pH 7.450 (7.350-7.450) Arterial Blood Partial Pressure CO2 29.3 mmHg (35.0-45.0) L Arterial Blood Partial Pressure O2 194.4 mmHg (75.0-100.0) H Arterial Blood HCO3 19.9 mmol/L (22.0-26.0) L Arterial Blood Oxygen Saturation 99.0 % (92.0-98.0) H Arterial Blood Base Excess -2.9 Santino Test Positive Impression/Recommendations Recommendations ## [id number] VÍCTOR SCHUMACHER May 25, 2017 13:27
[2017-05-25] MEDS ORDERED: Thiamine HCl 100 MG, Folic Acid 1 MG, Magnesium Sulfate 2,000 MG, Multivitamin - 12 Inj... IV ONE ×5 (13:30)
[2017-05-25] MEDS: Folic Acid 1 MG, Magnesium Sulfate 2,000 MG, Multivitamin - 12 Injection 10 ML in NS w/... IV SCH (16:22)
[2017-05-25] MEDS: Thiamine HCl 100 MG in NS 110 ML IVPB SCH (16:22)
[2017-05-25] MEDS ORDERED: DiphenhydrAMINE 50mg/ml Inj IVP ONE (17:00)
[2017-05-25] MEDS ORDERED: Solu-MEDROL 125mg Inj IVP ONE (17:00)
[2017-05-25] MEDS: MIDAZOLAM FOR DRIP IV SCH (19:55)
[2017-05-25] MEDS: D5W IV SCH (19:55)
[2017-05-25] MEDS ORDERED: Cefepime 2gm ONE (23:27)
[2017-05-25] MEDS: Cefepime HCl 2 GM in D5W 55 ML IVPB SCH (23:50)
[2017-05-25 23:58] LABS: CHOLESTEROL 118 MG/DL (< 200); HDL CHOLESTEROL 41 MG/DL (40-60); TRIGLYCERIDES 72 MG/DL (30-150)
[2017-05-26] VITALS (47 sets, daily range): BP systolic 93–128; BP diastolic 41–72
[2017-05-26] MEDS ORDERED: Vancomycin 1.5gm/D5W 250ml 250 ML IVPB ONE
[2017-05-26 05:34] LABS: BASOPHILS % (AUTO) 0.2 % (0.0-2.0); HEMATOCRIT 33.2 % (42.0-52.0); HEMOGLOBIN 11.7 G/DL (14.2-18.0); LYMPHOCYTES % (AUTO) 6.3 % (20.0-45.0); MEAN CORPUSCULAR VOLUME 90 FL (80-99); MONOCYTES % (AUTO) 8.7 % (1.0-10.0); NEUTROPHILS % (AUTO) 84.7 % (45.0-75.0); PLATELET COUNT 191 K/UL (150-450); RED BLOOD COUNT 3.68 M/UL (4.70-6.10); RED CELL DISTRIBUTION WIDTH 11.2 % (11.6-14.8); WHITE BLOOD COUNT 11.4 K/UL (4.8-10.8)
[2017-05-26 06:06] LABS: ANION GAP 5 mmol/L (5-15); BLOOD UREA NITROGEN 7 mg/dL (7-18); CALCIUM 7.4 MG/DL (8.5-10.1); CARBON DIOXIDE 29 MMOL/L (21-32); CHLORIDE 105 MMOL/L (98-107); CREATININE 1.1 MG/DL (0.55-1.30); POTASSIUM 3.5 MMOL/L (3.5-5.1); SODIUM 139 MMOL/L (136-145)
[2017-05-26] MEDS: Sodium Bicarbonate 100 ML in NS 1000ml 1,000 ML IV SCH (07:07)
[2017-05-26] MEDS: Cefepime HCl 2 GM in D5W 55 ML IVPB SCH ×2 (08:43→21:01)
[2017-05-26] MEDS: Heparin 5000 units/ml inj SUBQ SCH ×2 (08:46→18:03)
--- NOTE | 2017-05-26 09:02 | Nephrology Progress Note ---
Assessment/Plan Plan Amphetamine OD. Hyponatremia, MOF secondary to above. Change IVF according to labs. Subjective Subjective Sedated. Objective Objective Last 24 Hour Vital Signs Date Time Temp Pulse Resp B/P (MAP) Pulse Ox O2 Delivery O2 Flow Rate FiO2 05/26/17 08:00 40 05/26/17 08:00 99.1 90 17 101/61 99 Mechanical Ventilator 40 05/26/17 07:01 90 20 40 05/26/17 07:00 92 20 97/50 97 Mechanical Ventilator 40 05/26/17 07:00 20 05/26/17 06:30 86 20 93/44 97 Mechanical Ventilator 40 05/26/17 06:00 21 05/26/17 06:00 21 05/26/17 06:00 87 20 93/41 97 Mechanical Ventilator 40 05/26/17 05:45 88 21 94/42 97 Mechanical Ventilator 40 05/26/17 05:30 90 21 94/42 97 Mechanical Ventilator 40 05/26/17 05:30 99.3 05/26/17 05:15 91 21 96/45 98 Mechanical Ventilator 40 05/26/17 05:03 99 20 40 05/26/17 05:00 20 05/26/17 05:00 20 05/26/17 05:00 99.3 92 20 95/48 99 Mechanical Ventilator 40 05/26/17 04:30 90 20 95/44 97 Mechanical Ventilator 40 05/26/17 04:00 93 05/26/17 04:00 100.2 93 21 96/45 97 Mechanical Ventilator 40 05/26/17 04:00 21 05/26/17 04:00 21 05/26/17 04:00 40 05/26/17 03:30 93 22 95/46 97 Mechanical Ventilator 40 05/26/17 03:13 93 22 40 05/26/17 03:00 22 05/26/17 03:00 22 05/26/17 03:00 92 22 97/46 97 Mechanical Ventilator 40 05/26/17 02:30 91 21 96/48 97 Mechanical Ventilator 40 05/26/17 02:15 21 05/26/17 02:15 21 05/26/17 02:00 91 22 95/46 97 Mechanical Ventilator 40 05/26/17 02:00 21 05/26/17 02:00 21 05/26/17 01:45 91 21 96/46 97 Mechanical Ventilator 40 05/26/17 01:45 21 05/26/17 01:45 21 05/26/17 01:30 21 05/26/17 01:30 21 05/26/17 01:30 90 21 97/47 97 Mechanical Ventilator 40 05/26/17 01:15 91 21 97/47 97 Mechanical Ventilator 40 05/26/17 01:15 21 05/26/17 01:15 21 05/26/17 01:04 92 21 40 05/26/17 01:00 21 05/26/17 01:00 21 05/26/17 01:00 91 21 97/48 97 Mechanical Ventilator 40 05/26/17 00:30 92 20 100/50 97 Mechanical Ventilator 40 05/26/17 00:00 99.3 90 21 100/52 97 Mechanical Ventilator 40 05/26/17 00:00 87 05/26/17 00:00 40 05/26/17 00:00 21 05/26/17 00:00 21 05/25/17 23:30 87 18 97/52 97 Mechanical Ventilator 40 05/25/17 23:20 87 20 40 05/25/17 23:00 87 20 98/52 98 Mechanical Ventilator 40 05/25/17 23:00 20 05/25/17 23:00 20 05/25/17 22:30 86 20 98/51 97 Mechanical Ventilator 40 05/25/17 22:07 19 05/25/17 22:00 21 05/25/17 22:00 21 05/25/17 22:00 87 19 98/54 97 Mechanical Ventilator 40 05/25/17 21:45 87 19 99/52 97 Mechanical Ventilator 40 05/25/17 21:30 88 20 100/56 97 Mechanical Ventilator 40 05/25/17 21:15 87 20 107/62 100 Mechanical Ventilator 40 05/25/17 21:00 88 05/25/17 21:00 98.2 85 18 107/62 100 Mechanical Ventilator 40 05/25/17 21:00 18 05/25/17 21:00 18 05/25/17 20:49 99.7 83 19 115/47 99 Mechanical Ventilator 40 05/25/17 20:45 99.7 83 19 115/47 99 Mechanical Ventilator 40 05/25/17 20:31 82 20 Mechanical Ventilator 40 05/25/17 20:31 82 18 40 05/25/17 20:30 99.7 82 19 118/47 99 Mechanical Ventilator 40 05/25/17 20:25 20 05/25/17 20:15 99.7 83 20 118/51 99 Mechanical Ventilator 40 05/25/17 20:10 19 05/25/17 20:00 99.7 82 19 116/50 99 Mechanical Ventilator 40 05/25/17 19:55 19 05/25/17 19:45 99.7 83 19 113/44 99 Mechanical Ventilator 40 05/25/17 19:30 99.7 86 19 114/46 99 Mechanical Ventilator 40 05/25/17 19:15 99.7 84 19 110/46 99 Mechanical Ventilator 40 05/25/17 19:00 19 05/25/17 19:00 19 05/25/17 19:00 99.2 90 19 108/45 100 Mechanical Ventilator 40 05/25/17 18:58 91 18 40 05/25/17 18:00 92 16 125/56 100 Mechanical Ventilator 05/25/17 18:00 18 05/25/17 18:00 22 05/25/17 17:45 100.3 05/25/17 17:14 21 05/25/17 17:05 95 22 40 05/25/17 17:00 99.0 91 21 108/45 100 Mechanical Ventilator 40 05/25/17 17:00 21 05/25/17 16:00 99.0 90 20 121/59 100 Mechanical Ventilator 40 05/25/17 16:00 21 05/25/17 16:00 21 05/25/17 15:00 19 05/25/17 15:00 19 05/25/17 15:00 99.2 94 21 107/45 99 Mechanical Ventilator 40 05/25/17 14:39 24 05/25/17 14:37 96 20 40 05/25/17 14:05 100.3 05/25/17 14:00 95 20 111/44 99 Mechanical Ventilator 40 05/25/17 14:00 21 05/25/17 14:00 20 05/25/17 13:56 24 05/25/17 13:29 106 20 40 05/25/17 13:00 20 05/25/17 13:00 20 05/25/17 13:00 100.5 105 18 108/55 99 Mechanical Ventilator 40 05/25/17 12:30 100 22 118/55 99 Mechanical Ventilator 40 05/25/17 12:15 23 05/25/17 12:15 23 05/25/17 12:00 108 23 117/63 99 Mechanical Ventilator 40 05/25/17 11:45 105 22 126/53 99 Mechanical Ventilator 40 05/25/17 11:40 104 19 134/56 99 Mechanical Ventilator 40 05/25/17 11:30 104 20 130/56 100 Mechanical Ventilator 40 05/25/17 11:30 21 05/25/17 11:15 102 22 133/52 100 Mechanical Ventilator 40 05/25/17 11:15 24 05/25/17 11:15 24 05/25/17 11:00 99.6 106 20 133/56 99 Mechanical Ventilator 40 05/25/17 11:00 23 05/25/17 11:00 23 05/25/17 10:45 102 20 130/56 100 Mechanical Ventilator 40 05/25/17 10:45 23 05/25/17 10:45 23 05/25/17 10:45 100.6 05/25/17 10:35 95 23 40 05/25/17 10:30 22 05/25/17 10:30 22 05/25/17 10:15 22 05/25/17 10:15 22 05/25/17 10:15 98 23 138/86 100 Mechanical Ventilator 40 05/25/17 10:00 21 05/25/17 10:00 21 05/25/17 10:00 99.5 96 22 112/52 100 Mechanical Ventilator 40 05/25/17 09:45 96 23 113/49 100 Mechanical Ventilator 40 05/25/17 09:45 23 05/25/17 09:44 24 05/25/17 09:44 23 05/25/17 09:30 90 23 115/52 100 Mechanical Ventilator 40 05/25/17 09:30 24 05/25/17 09:21 98 23 40 05/25/17 09:15 22 05/25/17 09:15 23 05/25/17 09:15 99.2 96 22 115/57 100 Mechanical Ventilator 40 Intake and Output 05/25/17 05/26/17 19:00 07:00 Intake Total 1211 ml 2066.106 ml Output Total 3400 ml 2455 ml Balance -2189 ml -388.894 ml IV Total 1211 ml 2066.106 ml Output Urine Total 3400 ml 2455 ml Laboratory Tests 05/25/17 23:20: Urine Osmolality 457H, Urine Random Sodium 107, Osmolality 287L, Uric Acid 0.8L , Pro-B-Type Natriuretic Peptide 81, Triglycerides Level 72, Cholesterol Level 118, LDL Cholesterol 64, HDL Cholesterol 41, Cholesterol/HDL Ratio 2.9L, Thyroid Stimulating Hormone (TSH) 0.211L 05/26/17 05:05: White Blood Count 11.4H, Red Blood Count 3.68L, Hemoglobin 11.7L, Hematocrit 33.2L, Mean Corpuscular Volume 90, Mean Corpuscular Hemoglobin 31.9H, Mean Corpuscular Hemoglobin Concent 35.4, Red Cell Distribution Width 11.2L, Platelet Count 191, Mean Platelet Volume 7.6, Neutrophils (%) (Auto) 84.7H, Lymphocytes (%) (Auto) 6.3L, Monocytes (%) (Auto) 8.7, Eosinophils (%) (Auto) 0.0, Basophils (%) (Auto) 0.2, Sodium Level 139, Potassium Level 3.5, Chloride Level 105, Carbon Dioxide Level 29, Anion Gap 5, Blood Urea Nitrogen 7, Creatinine 1.1, Estimat Glomerular Filtration Rate > 60, Glucose Level 141H, Calcium Level 7.4L Height (Feet): 5 Height (Inches): 10.00 Weight (Pounds): 160 Objective On vent. Cv RR Lungs CTA. Abd SNT. BS+ E No CCE. Neuro - on Propofol, sedated. TYRONE RIDDLE May 26, 2017 09:02
[2017-05-26] MEDS: levETIRAcetam 500mg/NS100ml 100 ML IVPB SCH ×3 (10:28→18:00)
[2017-05-26] MEDS: MIDAZOLAM FOR DRIP IV SCH (10:42)
[2017-05-26] MEDS: D5W IV SCH (10:42)
[2017-05-26] MEDS: 1/2NS w/KCl 20mEq 1000ml 1,000 ML IV SCH ×2 (11:59→21:01)
--- NOTE | 2017-05-26 12:00 | Consultation ---
DATE OF CONSULTATION: 05/25/2017 NOTE: POOR AUDIO RENAL CONSULTATION CONSULTING PHYSICIAN: Fide Johnson M.D. REFERRING PHYSICIAN: Jaya Hammer M.D. REASON FOR CONSULTATION: Hyponatremia. HISTORY OF PRESENT ILLNESS: This is a 27-year-old male with a known past medical history, brought by the EMS with altered mental status. The patient was intubated and couldn't get any history.According to the EMS and ER notes that the patient was brought by the EMS for the altered mental status and the patient was alert and oriented x4 initially. The patient had seizure attack when EMS arrived . Ptwas screaming in the ER and later the patient had generalized tonic-clonic seizure and got intubated. In ED,the patient was found to have severe hyponatremia of 111 and total 1500cc of hypertonic saline and NS bolus total 3L were given and the sodium went up from 111 to 128 this morning. The patient is intubated and the patient also was found to have urine toxicology positive for amphetamine . PAST SURGICAL HISTORY: Unknown. MEDICATIONS: Unknown. ALLERGIES: No known drug allergies. SOCIAL HISTORY: couldn't obtain as the patient intubated, under sedation. FAMILY HISTORY: Unknown. REVIEW OF SYSTEMS: couldn't obtain as the patient is intubated. PHYSICAL EXAMINATION: VITAL SIGNS: Blood pressure 119/57, heart rate of 82, respiratory rate of 19, temperature of 99.7 degrees, and oxygen saturation 99% on FiO2 50%. GENERAL: The patient is intubated under sedation. HEENT: Atraumatic and normocephalic. NECK: Supple. Trachea is in midline. LUNGS: Clear to auscultate bilaterally. No rales. No rhonchi. HEART: S1 and S2. Regular rate and rhythm. No murmur, rub, or gallop. ABDOMEN: Soft. Bowel sounds present. EXTREMITIES: No edema. LABORATORY AND DIAGNOSTIC DATA: White count of 20.7, that trended down to 12.3, hemoglobin 13, hematocrit 37.6, and the platelet count is 231. ESR is 4. ABG, pH 7.45, pCO2 of 29.3, pO2 of 194, and oxygen saturation 99%. Sodium went up from 111 to 128, potassium 3.6, chloride 97, bicarbonate 23, BUN 6, and creatinine 0.9. . Total protein 7.3. AST is 131 and ALT 38. CPK is 7400. C-reactive protein is 3.5. Triglycerides 54. Urine toxicology showed positive amphetamine. UA shows specific gravity of 1.010, pH of 5, 3+ glucose, 5+ occult blood, negative nitrite, negative leukocyte esterase, 0 to 2 RBC, and 0 to 2 WBCs. . ASSESSMENT: 1. Hyponatremia of unclear etiology, most likely related to the substance the patient used, 2. Seizure disorder. 3. Substance abuse. 4. Acute respiratory failure, status post intubation. PLAN: 1. Check serum osmolality and urine osmolality and TSH, lipid panel, BNP, uric acid_. 2. Continue IV fluids. 3. Monitor I/O and electrolytes. 4. continue ICU care Thank you for the consultation and we will follow up. Fide Jovon Johnson M.D. DR: Radha JOB#: [id number] CC: WEN
--- NOTE | 2017-05-26 12:09 | Diagnostic Imaging Report ---
Indication: Pain Technique: XRAY Chest 1v Comparison: 05/25/2017 Findings/Impression: ET tube tip at the level of the clavicles, 5 cm above the leo. Advancement by 1 to 2 cm recommended for more ideal positioning. This was discussed with the patient's treating ICU nurse at 12:00 PM on 05/26/2018. NG tube tip in the stomach. There is no definite focal airspace consolidation. No pleural effusion or pneumothorax.
[2017-05-26] MEDS: Vancomycin 1 GM in D5W 275 ML IVPB SCH ×2 (12:30→23:31)
--- NOTE | 2017-05-26 12:30 | Consultation ---
DATE OF CONSULTATION: 05/25/2017 NOTE: POOR AUDIO NEUROLOGICAL CONSULTATION CONSULTING PHYSICIAN: Josef Rojas M.D. REQUESTING PHYSICIAN: Jaya Hammer M.D. LOCATION: Emergency room. HISTORY OF PRESENT ILLNESS: This is a 27-year-old single man, called paramedics yesterday complaining of feeling dizzy. His initial assessment with [place] Coma Scale of 15. He is oriented x3. He describes that he took a brand new pre workout powder called " ." Vital signs initially were stable. He denied shortness of breath, chest pain, or trauma. His 12-lead EKG on the scene was normal sinus rhythm. He was assisted into the gurney, transported to this hospital. En route to the hospital, he became altered. The patient was taken to triage for further evaluation. On arrival, the patient was documented having generalized clonic-tonic seizure episode, which occurred en route to this hospital. Following seizure, he became very confused, nonverbal, and nonresponsive, but yelling and screaming. His vital signs included blood pressure 148/88 and heart rate of 94. He was agitated and nonresponsive, disoriented, screaming, hands, moving all extremities spontaneously, intermittent . His initial laboratory work included electrolyte panel with sodium 111, potassium 3.0, and chloride 78. Blood sugar up 182. Lactic acid 4.50. Calcium level 7.2. Elevated CPK of 3402. Repeat CPK revealed elevation up to and lactic acid up to 6.8. His sodium remains 116. Toxicology panel positive for amphetamine. Urinalysis, 3+ ketones and glucose. Spinal tap was obtained and it was normal study. Imaging included stat CT of the brain, which revealed no acute intracranial abnormalities. There was a paranasal sinus disease only. No evidence of fracture. Chest x-ray, no evidence of acute cardiopulmonary disease. Right knee was swollen. X-ray was obtained revealing a significant soft tissue swelling anterior to the patella, suggestive patellar tendon injury, rupture, or lateral patellar dislocation. The patient was intubated. An NG-tube was placed. Repeat chest x-ray revealed interval NG-tube placement, tip in the region of the mid distal stomach. Following initial assessment, the patient remained in ICU pending proper bed. The patient is very restless, he required sedation with fentanyl. EKG revealed normal sinus rhythm. No PVC. No ectopy. He remained on mechanical ventilator. The patient developed rash. Central line was placed transitioned from peripheral IV to central line. Dr. Hammer's assessment was obtained. The patient was maintained on ventilator management, IV hydration, propofol, fentanyl, p.r.n. Ativan, and phenobarbital for seizure control. His current treatment includes Keppra 1500 mg b.i.d., midazolam, normal saline supplements, propofol, Benadryl, , phenobarbital loading dose, initial loading dose was 1040 mg . PAST MEDICAL HISTORY: Reportedly, no medical issues in the past. No treatment. MEDICATIONS: No medications prior to admission. SOCIAL HISTORY: He is a single, lives alone in apartment, currently not employed. He denied drug or alcohol abuse. FAMILY HISTORY: Unavailable. REVIEW OF SYSTEMS: Unable to obtain due to the patient's status. PHYSICAL EXAMINATION: GENERAL: A well-developed, well-nourished, athletically built, healthy appearing man, who is intubated and heavily sedated with propofol and versed. VITAL SIGNS: His current vital signs remained stable, respiration rate of 21, heart rate of 95, and temperature 99.5 degrees. HEENT: Head: Normocephalic. There is no evidence of trauma. Eyes, ears, and throat are clear. NECK: Supple. No meningeal signs. MUSCULOSKELETAL: Unremarkable except swelling of right knee. Peripheral pulses 1+ symmetric. SKIN: Rash predominantly in chest area. MENTAL STATUS: Unresponsive due to heavy sedation. CRANIAL NERVE II: Pupils 2 mm responding to light and accommodation. Extraocular movements intact. No nystagmus. CRANIAL NERVE V: Normal corneal responses. CRANIAL NERVE VII: No facial asymmetry. CRANIAL NERVE VIII: Not tested. CRANIAL NERVES IX THROUGH XII: Absent gag response. MOTOR EXAMINATION: Flaccid upper and lower extremities. Deep tendon reflexes depressed bilaterally. Plantar responses flexor. SENSORY EXAMINATION: No response to pin stimulation. IMPRESSION: 1. Severe toxic encephalopathy. 2. Single generalized seizure episode, rule out nonconvulsive seizure activity. 3. Substance abuse (methamphetamine). 4. Incomplete information. 5. Hyponatremia, metabolic acidosis, rhabdomyolysis, hypocalcemia, and leukocytosis. RECOMMENDATION: 1. Check EEG. 2. When stable, obtain MRI of the brain without contrast. 3. Continue IV fluid hydration. Continue with anti-seizure treatment, now on Keppra 1500 mg b.i.d. 4. Maintain respiratory support. 5. Attempts will be made to obtain additional information. 6. We will review electroencephalogram. 7. Discussed the patient's status with medical staff. Thank you for allowing me to see this interesting patient in neurological consultation. Josef Jarvis Rojas DR: Greta JOB#: [id number] CC:
--- NOTE | 2017-05-26 13:15 | General Progress Note ---
Assessment/Plan Assessment/Plan IMPRESSION leukocytosis, likely leukomoid respiratory failure acute encephalopathy seizure hyponatremia rhabdo PLAN IV hydration monitor urine- change in color ventilator management neuro evaluation appreciated propofol and fentanyl taper as able ativan PRN dietary evaluation medications/laboratory data/nursing notes/ICU care reviewed in detail note reviewed and edited care discussed with RN and RT Subjective Allergies: Coded Allergies: No Known Allergies (Unverified , 05/24/17) Subjective still poorly responsive on vent Objective Last 24 Hour Vital Signs Date Time Temp Pulse Resp B/P (MAP) Pulse Ox O2 Delivery O2 Flow Rate FiO2 05/26/17 12:00 103 05/26/17 12:00 40 05/26/17 11:00 105 21 111/60 100 Mechanical Ventilator 40 05/26/17 11:00 21 05/26/17 10:55 102 18 40 05/26/17 10:42 22 05/26/17 10:00 94 18 104/62 100 Mechanical Ventilator 40 05/26/17 10:00 21 05/26/17 09:15 99 19 40 05/26/17 09:00 17 05/26/17 09:00 96 18 110/65 100 Mechanical Ventilator 40 05/26/17 08:00 40 05/26/17 08:00 99.1 90 17 101/61 99 Mechanical Ventilator 40 05/26/17 08:00 18 05/26/17 08:00 90 05/26/17 07:01 90 20 40 05/26/17 07:00 92 20 97/50 97 Mechanical Ventilator 40 05/26/17 07:00 20 05/26/17 06:30 86 20 93/44 97 Mechanical Ventilator 40 05/26/17 06:00 21 05/26/17 06:00 21 05/26/17 06:00 87 20 93/41 97 Mechanical Ventilator 40 05/26/17 05:45 88 21 94/42 97 Mechanical Ventilator 40 05/26/17 05:30 90 21 94/42 97 Mechanical Ventilator 40 05/26/17 05:30 99.3 05/26/17 05:15 91 21 96/45 98 Mechanical Ventilator 40 05/26/17 05:03 99 20 40 05/26/17 05:00 20 05/26/17 05:00 20 05/26/17 05:00 99.3 92 20 95/48 99 Mechanical Ventilator 40 05/26/17 04:30 90 20 95/44 97 Mechanical Ventilator 40 05/26/17 04:00 93 05/26/17 04:00 100.2 93 21 96/45 97 Mechanical Ventilator 40 05/26/17 04:00 21 05/26/17 04:00 21 05/26/17 04:00 40 05/26/17 03:30 93 22 95/46 97 Mechanical Ventilator 40 05/26/17 03:13 93 22 40 05/26/17 03:00 22 05/26/17 03:00 22 05/26/17 03:00 92 22 97/46 97 Mechanical Ventilator 40 05/26/17 02:30 91 21 96/48 97 Mechanical Ventilator 40 05/26/17 02:15 21 05/26/17 02:15 21 05/26/17 02:00 91 22 95/46 97 Mechanical Ventilator 40 05/26/17 02:00 21 05/26/17 02:00 21 05/26/17 01:45 91 21 96/46 97 Mechanical Ventilator 40 05/26/17 01:45 21 05/26/17 01:45 21 05/26/17 01:30 21 05/26/17 01:30 21 05/26/17 01:30 90 21 97/47 97 Mechanical Ventilator 40 05/26/17 01:15 91 21 97/47 97 Mechanical Ventilator 40 05/26/17 01:15 21 05/26/17 01:15 21 05/26/17 01:04 92 21 40 05/26/17 01:00 21 05/26/17 01:00 21 05/26/17 01:00 91 21 97/48 97 Mechanical Ventilator 40 05/26/17 00:30 92 20 100/50 97 Mechanical Ventilator 40 05/26/17 00:00 99.3 90 21 100/52 97 Mechanical Ventilator 40 05/26/17 00:00 87 05/26/17 00:00 40 05/26/17 00:00 21 05/26/17 00:00 21 05/25/17 23:30 87 18 97/52 97 Mechanical Ventilator 40 05/25/17 23:20 87 20 40 05/25/17 23:00 87 20 98/52 98 Mechanical Ventilator 40 05/25/17 23:00 20 05/25/17 23:00 20 05/25/17 22:30 86 20 98/51 97 Mechanical Ventilator 40 05/25/17 22:07 19 05/25/17 22:00 21 05/25/17 22:00 21 05/25/17 22:00 87 19 98/54 97 Mechanical Ventilator 40 05/25/17 21:45 87 19 99/52 97 Mechanical Ventilator 40 05/25/17 21:30 88 20 100/56 97 Mechanical Ventilator 40 05/25/17 21:15 87 20 107/62 100 Mechanical Ventilator 40 05/25/17 21:00 88 05/25/17 21:00 98.2 85 18 107/62 100 Mechanical Ventilator 40 05/25/17 21:00 18 05/25/17 21:00 18 05/25/17 20:49 99.7 83 19 115/47 99 Mechanical Ventilator 40 05/25/17 20:45 99.7 83 19 115/47 99 Mechanical Ventilator 40 05/25/17 20:31 82 20 Mechanical Ventilator 40 05/25/17 20:31 82 18 40 05/25/17 20:30 99.7 82 19 118/47 99 Mechanical Ventilator 40 05/25/17 20:25 20 05/25/17 20:15 99.7 83 20 118/51 99 Mechanical Ventilator 40 05/25/17 20:10 19 05/25/17 20:00 99.7 82 19 116/50 99 Mechanical Ventilator 40 05/25/17 19:55 19 05/25/17 19:45 99.7 83 19 113/44 99 Mechanical Ventilator 40 05/25/17 19:30 99.7 86 19 114/46 99 Mechanical Ventilator 40 05/25/17 19:15 99.7 84 19 110/46 99 Mechanical Ventilator 40 05/25/17 19:00 19 05/25/17 19:00 19 05/25/17 19:00 99.2 90 19 108/45 100 Mechanical Ventilator 40 05/25/17 18:58 91 18 40 05/25/17 18:00 92 16 125/56 100 Mechanical Ventilator 05/25/17 18:00 18 05/25/17 18:00 22 05/25/17 17:45 100.3 05/25/17 17:14 21 05/25/17 17:05 95 22 40 05/25/17 17:00 99.0 91 21 108/45 100 Mechanical Ventilator 40 05/25/17 17:00 21 05/25/17 16:00 99.0 90 20 121/59 100 Mechanical Ventilator 40 05/25/17 16:00 21 05/25/17 16:00 21 05/25/17 15:00 19 05/25/17 15:00 19 05/25/17 15:00 99.2 94 21 107/45 99 Mechanical Ventilator 40 05/25/17 14:39 24 05/25/17 14:37 96 20 40 05/25/17 14:05 100.3 05/25/17 14:00 95 20 111/44 99 Mechanical Ventilator 40 05/25/17 14:00 21 05/25/17 14:00 20 05/25/17 13:56 24 05/25/17 13:29 106 20 40 Intake and Output 05/25/17 05/26/17 19:00 07:00 Intake Total 1211 ml 2066.106 ml Output Total 3400 ml 2455 ml Balance -2189 ml -388.894 ml IV Total 1211 ml 2066.106 ml Output Urine Total 3400 ml 2455 ml Laboratory Tests 05/25/17 23:20: Urine Osmolality 457H, Urine Random Sodium 107, Osmolality 287L, Uric Acid 0.8L , Pro-B-Type Natriuretic Peptide 81, Triglycerides Level 72, Cholesterol Level 118, LDL Cholesterol 64, HDL Cholesterol 41, Cholesterol/HDL Ratio 2.9L, Thyroid Stimulating Hormone (TSH) 0.211L 05/26/17 05:05: White Blood Count 11.4H, Red Blood Count 3.68L, Hemoglobin 11.7L, Hematocrit 33.2L, Mean Corpuscular Volume 90, Mean Corpuscular Hemoglobin 31.9H, Mean Corpuscular Hemoglobin Concent 35.4, Red Cell Distribution Width 11.2L, Platelet Count 191, Mean Platelet Volume 7.6, Neutrophils (%) (Auto) 84.7H, Lymphocytes (%) (Auto) 6.3L, Monocytes (%) (Auto) 8.7, Eosinophils (%) (Auto) 0.0, Basophils (%) (Auto) 0.2, Sodium Level 139, Potassium Level 3.5, Chloride Level 105, Carbon Dioxide Level 29, Anion Gap 5, Blood Urea Nitrogen 7, Creatinine 1.1, Estimat Glomerular Filtration Rate > 60, Glucose Level 141H, Calcium Level 7.4L, Magnesium Level 1.9 05/26/17 07:00: Urine Opiates Screen Negative, Urine Barbiturates Screen PositiveH, Phencyclidine (PCP) Screen Negative, Urine Amphetamines Screen Negative, Urine Benzodiazepines Screen PositiveH, Urine Cocaine Screen Negative, Urine Marijuana (THC) Screen Negative Height (Feet): 5 Height (Inches): 10.00 Weight (Pounds): 160 Objective WDWN NAD on ETT clear breath sounds bilaterally without rhonchi or wheeze [id number] without MRG NABS nontender no HSM no CCE on drips DONNA OLIVA May 26, 2017 13:15
[2017-05-26] MEDS ORDERED: Tubing IV Secondary IV ONE (15:48)
[2017-05-26] MEDS: Folic Acid 1 MG, Magnesium Sulfate 2,000 MG, Multivitamin - 12 Injection 10 ML in NS w/... IV SCH (15:52)
--- NOTE | 2017-05-26 16:00 | Consultation ---
DATE OF CONSULTATION: 05/26/2017 INFECTIOUS DISEASE CONSULT This consult is for coverage of Dr. Bhardwaj. CONSULTING PHYSICIAN: Sagar Henry M.D. PRIMARY ATTENDING PHYSICIAN: Jaya Hammer M.D. REASON FOR CONSULT: Sepsis. HISTORY OF PRESENT ILLNESS: This is a 27-year-old male admitted on 05/25/2017 because of altered mental status and he was not feeling well, on the route of hospital, the patient had a generalized tonic-clonic seizure. He was intubated in the ER, transferred to ICU. First he had hypothermia, then developed low-grade fever. Currently sedated, had a femoral line placement. According to primary doctor, the patient had too much of his pre workup supplementation with brand name of Power Switch that contains multiple ingredients like caffeine, taurine, green tea extracts. Urine toxicology test was positive for amphetamine. The patient has also had a LP done in hospital. PAST MEDICAL HISTORY: Unknown. ALLERGIES: No known drug allergies. MEDICATIONS: Getting vancomycin, cefepime, midazolam, magnesium sulfate, multivitamin, thiamine, propofol, Keppra, sodium bicarbonate, and lorazepam. REVIEW OF SYSTEMS: Unobtainable. PHYSICAL EXAMINATION: VITAL SIGNS: Temperature 99.1, pulse 90, and blood pressure is 101/61. HEAD AND NECK: Orally intubated. Has NG tube in place. HEART: Has normal rate. LUNGS: Clear on mechanical ventilator. ABDOMEN: Soft and nontender. EXTREMITIES: Has effusion in the right knee, has a right femoral line. LABORATORY AND DIAGNOSTIC DATA: WBC 11.4, hemoglobin 11.7, hematocrit 33.2, and platelet is 191,000. Sodium 139, potassium 3.5, chloride 105, bicarbonate 29, BUN 7, creatinine 1.1, and glucose 141. At the time of admission, the patient had a sodium of 111. CK level of 11,393. Lactic acid was 6.8. The patient has CT scan of the head that was negative. Chest x-ray was negative. Also had right knee x-ray that showed patellar tendon injury rupture or lateral patellar dislocation. IMPRESSION: Severe leukocytosis. Lactic acidosis indicated to sepsis or more likely systemic inflammatory response syndrome. So far, the cultures are negative. The patient had a LP that was also insignificant, waiting for CSF cultures, plus hyponatremia, rhabdomyolysis, substance abuse, patellar tendon rapture, lactic acidosis, and respiratory failure. RECOMMENDATION: We will continue current antibiotic, vancomycin and cefepime. If the culture remains negative, we will stop antibiotics soon at the end of my exam. I thank Dr. Hammer, for involving me in the care of this patient. Sagar Henry M.D. DR: ARMANDO JOB#: [id number] CC: WEN
[2017-05-26] MEDS: Thiamine HCl 100 MG in NS 110 ML IVPB SCH (18:37)
[2017-05-26] MEDS: Dyna-Hex 2% Top Sol 2oz TOPIC SCH (20:09)
[2017-05-26] MEDS: LORazepam Inj 2mg/ml 1ml IV PRN (22:41)
[2017-05-27] VITALS (39 sets, daily range): BP systolic 104–146; BP diastolic 48–90
[2017-05-27] MEDS: MIDAZOLAM FOR DRIP IV SCH ×2 (00:07→18:12)
[2017-05-27] MEDS: D5W IV SCH ×2 (00:07→18:12)
[2017-05-27] MEDS: 1/2NS w/KCl 20mEq 1000ml 1,000 ML IV SCH ×2 (06:07→15:58)
[2017-05-27 07:17] LABS: ANION GAP 7 mmol/L (5-15); BLOOD UREA NITROGEN 5 mg/dL (7-18); CALCIUM 8.1 MG/DL (8.5-10.1); CARBON DIOXIDE 30 MMOL/L (21-32); CHLORIDE 101 MMOL/L (98-107); PHOSPHORUS 1.7 MG/DL (2.5-4.9); POTASSIUM 3.6 MMOL/L (3.5-5.1); SODIUM 137 MMOL/L (136-145)
--- NOTE | 2017-05-27 08:09 | Diagnostic Imaging Report ---
Indication: Tube placement Technique: XRAY Chest 1v Comparison: 05/26/2017, 8:17 Findings/Impression: ET tube tip at the level of the clavicles, approximately 3.5 cm above the leo. It is not significantly changed in position compared with the prior exam. Again, advancement by 1.5 to 2 cm would provide more ideal positioning. 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 NG tube courses below the level of diaphragms, tip likely in the distal stomach. There is no focal airspace consolidation, pleural effusion or pneumothorax. Heart size and mediastinal contours are stable. No acute osseous abnormality.
--- NOTE | 2017-05-27 08:46 | Diagnostic Imaging Report ---
Indication: Tube placement Technique: XRAY Chest 1v Comparison: 05/26/2017, 15:12 Findings: Endotracheal tube tip just below level of the clavicles, 3 cm above the leo. NG tube unchanged. Heart size and mediastinal contours are stable. No definite focal airspace consolidation. No pleural effusion or pneumothorax. No acute osseous abnormality. Impression: ET tube tip just below level of clavicles, approximately 3 cm above the leo. Additional findings unchanged.
--- NOTE | 2017-05-27 08:49 | General Progress Note ---
Assessment/Plan Assessment/Plan IMPRESSION leukocytosis, likely leukomoid respiratory failure acute encephalopathy seizure hyponatremia rhabdo PLAN IV hydration monitor urine- ID, renal, neuro ventilator management neuro evaluation appreciated propofol and fentanyl taper as able ativan PRN dietary evaluation- start feeds medications/laboratory data/nursing notes/ICU care reviewed in detail note reviewed and edited care discussed with RN and RT Subjective Allergies: Coded Allergies: No Known Allergies (Unverified , 05/24/17) Subjective still poorly responsive on vent Objective Last 24 Hour Vital Signs Date Time Temp Pulse Resp B/P (MAP) Pulse Ox O2 Delivery O2 Flow Rate FiO2 05/27/17 08:37 113 28 40 05/27/17 07:00 15 05/27/17 07:00 88 16 118/59 100 Mechanical Ventilator 40 05/27/17 06:39 91 17 40 05/27/17 06:00 91 17 121/68 100 Mechanical Ventilator 40 05/27/17 06:00 12 05/27/17 05:30 89 19 40 05/27/17 05:00 106 17 121/68 100 Mechanical Ventilator 40 05/27/17 05:00 16 05/27/17 04:00 40 05/27/17 04:00 109 05/27/17 04:00 15 05/27/17 04:00 98.6 108 23 112/68 100 Mechanical Ventilator 40 05/27/17 03:30 90 18 40 05/27/17 03:00 17 05/27/17 03:00 90 17 131/48 100 Mechanical Ventilator 40 05/27/17 02:00 96 18 107/59 100 Mechanical Ventilator 40 05/27/17 02:00 17 05/27/17 01:30 91 18 40 05/27/17 01:00 19 05/27/17 01:00 109 28 137/82 100 Mechanical Ventilator 40 05/27/17 00:07 16 05/27/17 00:00 40 05/27/17 00:00 98.6 83 16 112/70 100 Mechanical Ventilator 40 05/27/17 00:00 88 05/26/17 23:00 15 05/26/17 23:00 88 15 121/70 100 Mechanical Ventilator 40 05/26/17 22:58 91 20 40 05/26/17 22:00 83 17 104/51 100 Mechanical Ventilator 40 05/26/17 22:00 16 05/26/17 21:30 92 20 40 05/26/17 21:01 17 05/26/17 21:00 98.8 88 18 105/47 100 Mechanical Ventilator 40 05/26/17 20:00 40 05/26/17 20:00 15 05/26/17 20:00 91 05/26/17 20:00 99.8 89 18 112/66 100 Mechanical Ventilator 40 05/26/17 19:30 95 18 40 05/26/17 19:00 91 15 128/69 100 Mechanical Ventilator 40 05/26/17 19:00 15 05/26/17 18:30 91 18 128/72 100 Mechanical Ventilator 40 05/26/17 18:00 20 05/26/17 18:00 99.5 99 20 107/59 100 Mechanical Ventilator 40 05/26/17 17:30 100.4 91 16 114/66 100 Mechanical Ventilator 40 05/26/17 17:20 106 21 40 05/26/17 17:00 21 05/26/17 17:00 98 14 105/61 100 Mechanical Ventilator 40 05/26/17 16:30 95 13 107/69 100 Mechanical Ventilator 40 05/26/17 16:00 98 05/26/17 16:00 98 15 107/63 100 Mechanical Ventilator 40 05/26/17 16:00 16 05/26/17 16:00 40 05/26/17 15:30 97 16 107/69 100 Mechanical Ventilator 40 05/26/17 15:25 94 17 40 05/26/17 15:00 20 05/26/17 15:00 94 20 107/69 100 Mechanical Ventilator 40 05/26/17 14:31 100.0 05/26/17 14:30 100.0 100 15 95/41 100 Mechanical Ventilator 40 05/26/17 14:00 108 20 100/52 97 Mechanical Ventilator 40 05/26/17 14:00 20 05/26/17 13:30 105 16 105/54 100 Mechanical Ventilator 40 05/26/17 13:13 112 21 40 05/26/17 13:00 121 21 120/68 100 Mechanical Ventilator 40 05/26/17 13:00 20 05/26/17 12:30 103 16 107/59 100 Mechanical Ventilator 40 05/26/17 12:00 103 05/26/17 12:00 101.2 103 14 105/56 100 Mechanical Ventilator 40 1/14/18 12:00 40 05/26/17 11:59 21 05/26/17 11:30 103 19 113/55 100 Mechanical Ventilator 40 05/26/17 11:00 105 21 111/60 100 Mechanical Ventilator 40 05/26/17 11:00 21 05/26/17 10:55 102 18 40 05/26/17 10:42 22 05/26/17 10:30 111 19 114/70 100 Mechanical Ventilator 40 05/26/17 10:00 94 18 104/62 100 Mechanical Ventilator 40 05/26/17 10:00 21 05/26/17 09:30 100 13 101/62 100 Mechanical Ventilator 40 05/26/17 09:15 99 19 40 05/26/17 09:00 17 05/26/17 09:00 96 18 110/65 100 Mechanical Ventilator 40 Intake and Output 05/26/17 05/27/17 19:00 07:00 Intake Total 3056.000 ml 2058.000 ml Output Total 2000 ml 3705 ml Balance 1056.000 ml -1647.000 ml Intake Free Water 100 ml IV Total 2906.000 ml 2058.000 ml Other 50 ml Output Urine Total 2000 ml 3705 ml # Bowel Movements 2 Laboratory Tests 05/27/17 06:00: Sodium Level 137, Potassium Level 3.6, Chloride Level 101, Carbon Dioxide Level 30, Anion Gap 7, Blood Urea Nitrogen 5L, Creatinine 1.0, Estimat Glomerular Filtration Rate > 60, Glucose Level 105, Calcium Level 8.1L, Phosphorus Level 1.7L Height (Feet): 5 Height (Inches): 10.00 Weight (Pounds): 160 Objective WDWN NAD on ETT clear breath sounds bilaterally without rhonchi or wheeze [id number] without MRG NABS nontender no HSM no CCE on drips DONNA OLIVA May 27, 2017 08:49
[2017-05-27] MEDS: Cefepime HCl 2 GM in D5W 55 ML IVPB SCH (09:35)
[2017-05-27] MEDS: levETIRAcetam 500mg/NS100ml 100 ML IVPB SCH ×3 (09:35→17:21)
[2017-05-27] MEDS: Pantoprazole Inj IVP SCH (09:36)
[2017-05-27] MEDS: Heparin 5000 units/ml inj SUBQ SCH ×2 (09:41→17:26)
[2017-05-27] MEDS: Vancomycin 1 GM in D5W 275 ML IVPB SCH (11:49)
--- NOTE | 2017-05-27 14:46 | Nephrology Progress Note ---
Assessment/Plan Plan Amphetamine OD. Hyponatremia, MOF secondary to above. Phos 1.7 - correct Change IVF according to labs. Subjective Subjective Sedated. Objective Objective Last 24 Hour Vital Signs Date Time Temp Pulse Resp B/P (MAP) Pulse Ox O2 Delivery O2 Flow Rate FiO2 05/27/17 14:35 108 22 40 05/27/17 13:30 85 16 119/62 100 Mechanical Ventilator 40 05/27/17 13:00 108 17 121/68 100 Mechanical Ventilator 40 05/27/17 12:35 84 15 40 05/27/17 12:30 85 15 120/66 100 Mechanical Ventilator 40 05/27/17 12:00 99 15 125/65 100 Mechanical Ventilator 40 05/27/17 12:00 82 05/27/17 12:00 40 05/27/17 11:30 98.7 83 15 116/63 100 Mechanical Ventilator 40 05/27/17 11:00 83 15 118/65 100 Mechanical Ventilator 40 05/27/17 10:32 93 18 40 05/27/17 10:30 83 16 120/73 100 Mechanical Ventilator 40 05/27/17 10:00 84 17 109/57 99 Mechanical Ventilator 40 05/27/17 09:30 86 17 112/58 100 Mechanical Ventilator 40 05/27/17 09:00 84 16 117/61 100 Mechanical Ventilator 40 05/27/17 08:37 113 28 40 05/27/17 08:30 101 15 126/82 100 Mechanical Ventilator 40 05/27/17 08:00 88 05/27/17 08:00 98.8 86 17 114/61 100 Mechanical Ventilator 40 05/27/17 08:00 40 05/27/17 07:30 88 16 118/64 100 Mechanical Ventilator 40 05/27/17 07:00 15 05/27/17 07:00 88 16 118/59 100 Mechanical Ventilator 40 05/27/17 06:39 91 17 40 05/27/17 06:00 91 17 121/68 100 Mechanical Ventilator 40 05/27/17 06:00 12 05/27/17 05:30 89 19 40 05/27/17 05:00 106 17 121/68 100 Mechanical Ventilator 40 05/27/17 05:00 16 05/27/17 04:00 40 05/27/17 04:00 109 05/27/17 04:00 15 05/27/17 04:00 98.6 108 23 112/68 100 Mechanical Ventilator 40 05/27/17 03:30 90 18 40 05/27/17 03:00 17 05/27/17 03:00 90 17 131/48 100 Mechanical Ventilator 40 05/27/17 02:00 96 18 107/59 100 Mechanical Ventilator 40 05/27/17 02:00 17 05/27/17 01:30 91 18 40 05/27/17 01:00 19 05/27/17 01:00 109 28 137/82 100 Mechanical Ventilator 40 05/27/17 00:07 16 05/27/17 00:00 40 05/27/17 00:00 98.6 83 16 112/70 100 Mechanical Ventilator 40 05/27/17 00:00 88 05/26/17 23:00 15 05/26/17 23:00 88 15 121/70 100 Mechanical Ventilator 40 05/26/17 22:58 91 20 40 05/26/17 22:00 83 17 104/51 100 Mechanical Ventilator 40 05/26/17 22:00 16 05/26/17 21:30 92 20 40 05/26/17 21:01 17 05/26/17 21:00 98.8 88 18 105/47 100 Mechanical Ventilator 40 05/26/17 20:00 40 05/26/17 20:00 15 05/26/17 20:00 91 05/26/17 20:00 99.8 89 18 112/66 100 Mechanical Ventilator 40 05/26/17 19:30 95 18 40 05/26/17 19:00 91 15 128/69 100 Mechanical Ventilator 40 05/26/17 19:00 15 05/26/17 18:30 91 18 128/72 100 Mechanical Ventilator 40 05/26/17 18:00 20 05/26/17 18:00 99.5 99 20 107/59 100 Mechanical Ventilator 40 05/26/17 17:30 100.4 91 16 114/66 100 Mechanical Ventilator 40 05/26/17 17:20 106 21 40 05/26/17 17:00 21 05/26/17 17:00 98 14 105/61 100 Mechanical Ventilator 40 05/26/17 16:30 95 13 107/69 100 Mechanical Ventilator 40 05/26/17 16:00 98 05/26/17 16:00 98 15 107/63 100 Mechanical Ventilator 40 05/26/17 16:00 16 05/26/17 16:00 40 05/26/17 15:30 97 16 107/69 100 Mechanical Ventilator 40 05/26/17 15:25 94 17 40 05/26/17 15:00 20 05/26/17 15:00 94 20 107/69 100 Mechanical Ventilator 40 Intake and Output 05/26/17 05/27/17 19:00 07:00 Intake Total 3056.000 ml 2058.000 ml Output Total 2000 ml 3705 ml Balance 1056.000 ml -1647.000 ml Intake Free Water 100 ml IV Total 2906.000 ml 2058.000 ml Other 50 ml Output Urine Total 2000 ml 3705 ml # Bowel Movements 2 Laboratory Tests 05/27/17 06:00: Sodium Level 137, Potassium Level 3.6, Chloride Level 101, Carbon Dioxide Level 30, Anion Gap 7, Blood Urea Nitrogen 5L, Creatinine 1.0, Estimat Glomerular Filtration Rate > 60, Glucose Level 105, Calcium Level 8.1L, Phosphorus Level 1.7L Height (Feet): 5 Height (Inches): 10.00 Weight (Pounds): 160 Objective On vent. Cv RR Lungs CTA. Abd SNT. BS+ E No CCE. Neuro - on Propofol, sedated. TYRONE RIDDLE May 27, 2017 14:46
[2017-05-27] MEDS: LORazepam Inj 2mg/ml 1ml IV PRN ×3 (14:55→20:06)
[2017-05-27] MEDS ORDERED: Sodium Phosphate 30 MM in NS 275 ML IVPB ONE (16:00)
--- NOTE | 2017-05-27 16:03 | Infectious Diseases Prog Note ---
Assessment/Plan Assessment/Plan A; SIRS/ Sepsis Toxic encephalopathy Patellar tendon rupture Respiratory failure Rhabdomyolysis P; Discontinue Vancomycin & Cefepime Subjective ROS Limited/Unobtainable: Yes Allergies: Coded Allergies: No Known Allergies (Unverified , 05/24/17) Objective Vital Signs Last 24 Hour Vital Signs Date Time Temp Pulse Resp B/P (MAP) Pulse Ox O2 Delivery O2 Flow Rate FiO2 05/27/17 15:30 88 16 112/60 100 Mechanical Ventilator 40 05/27/17 15:00 88 16 113/63 100 Mechanical Ventilator 40 05/27/17 14:35 108 22 40 05/27/17 14:30 101 15 135/90 100 Mechanical Ventilator 40 05/27/17 14:00 83 14 118/68 100 Mechanical Ventilator 40 05/27/17 13:30 85 16 119/62 100 Mechanical Ventilator 40 05/27/17 13:00 108 17 121/68 100 Mechanical Ventilator 40 05/27/17 12:35 84 15 40 05/27/17 12:30 85 15 120/66 100 Mechanical Ventilator 40 05/27/17 12:00 99 15 125/65 100 Mechanical Ventilator 40 05/27/17 12:00 82 05/27/17 12:00 40 05/27/17 11:30 98.7 83 15 116/63 100 Mechanical Ventilator 40 05/27/17 11:00 83 15 118/65 100 Mechanical Ventilator 40 05/27/17 10:32 93 18 40 05/27/17 10:30 83 16 120/73 100 Mechanical Ventilator 40 05/27/17 10:00 84 17 109/57 99 Mechanical Ventilator 40 05/27/17 09:30 86 17 112/58 100 Mechanical Ventilator 40 05/27/17 09:00 84 16 117/61 100 Mechanical Ventilator 40 05/27/17 08:37 113 28 40 05/27/17 08:30 101 15 126/82 100 Mechanical Ventilator 40 05/27/17 08:00 88 05/27/17 08:00 98.8 86 17 114/61 100 Mechanical Ventilator 40 05/27/17 08:00 40 05/27/17 07:30 88 16 118/64 100 Mechanical Ventilator 40 05/27/17 07:00 15 05/27/17 07:00 88 16 118/59 100 Mechanical Ventilator 40 05/27/17 06:39 91 17 40 05/27/17 06:00 91 17 121/68 100 Mechanical Ventilator 40 05/27/17 06:00 12 05/27/17 05:30 89 19 40 05/27/17 05:00 106 17 121/68 100 Mechanical Ventilator 40 05/27/17 05:00 16 05/27/17 04:00 40 05/27/17 04:00 109 05/27/17 04:00 15 05/27/17 04:00 98.6 108 23 112/68 100 Mechanical Ventilator 40 05/27/17 03:30 90 18 40 05/27/17 03:00 17 05/27/17 03:00 90 17 131/48 100 Mechanical Ventilator 40 05/27/17 02:00 96 18 107/59 100 Mechanical Ventilator 40 05/27/17 02:00 17 05/27/17 01:30 91 18 40 05/27/17 01:00 19 05/27/17 01:00 109 28 137/82 100 Mechanical Ventilator 40 05/27/17 00:07 16 05/27/17 00:00 40 05/27/17 00:00 98.6 83 16 112/70 100 Mechanical Ventilator 40 05/27/17 00:00 88 05/26/17 23:00 15 05/26/17 23:00 88 15 121/70 100 Mechanical Ventilator 40 05/26/17 22:58 91 20 40 05/26/17 22:00 83 17 104/51 100 Mechanical Ventilator 40 05/26/17 22:00 16 05/26/17 21:30 92 20 40 05/26/17 21:01 17 05/26/17 21:00 98.8 88 18 105/47 100 Mechanical Ventilator 40 05/26/17 20:00 40 05/26/17 20:00 15 05/26/17 20:00 91 05/26/17 20:00 99.8 89 18 112/66 100 Mechanical Ventilator 40 05/26/17 19:30 95 18 40 05/26/17 19:00 91 15 128/69 100 Mechanical Ventilator 40 05/26/17 19:00 15 05/26/17 18:30 91 18 128/72 100 Mechanical Ventilator 40 05/26/17 18:00 20 05/26/17 18:00 99.5 99 20 107/59 100 Mechanical Ventilator 40 05/26/17 17:30 100.4 91 16 114/66 100 Mechanical Ventilator 40 05/26/17 17:20 106 21 40 05/26/17 17:00 21 05/26/17 17:00 98 14 105/61 100 Mechanical Ventilator 40 05/26/17 16:30 95 13 107/69 100 Mechanical Ventilator 40 05/26/17 16:00 98 05/26/17 16:00 98 15 107/63 100 Mechanical Ventilator 40 05/26/17 16:00 16 05/26/17 16:00 40 Height (Feet): 5 Height (Inches): 10.00 Weight (Pounds): 160 General Appearance: no acute distress HEENT: mucous membranes moist Respiratory/Chest: lungs clear, other - on ventilator Cardiovascular: normal rate Abdomen: soft, non tender, other - NG tube Extremities: no edema Neurologic/Psychiatric: unresponsiveness Microbiology Date/Time Source Procedure Growth Status 05/25/17 12:40 Blood Blood Culture - Preliminary NO GROWTH AFTER 24 HOURS Resulted 05/25/17 12:15 Blood Blood Culture - Preliminary NO GROWTH AFTER 24 HOURS Resulted 05/24/17 22:30 Blood Blood Culture - Preliminary NO GROWTH AFTER 48 HOURS Resulted 05/24/17 22:15 Blood Blood Culture - Preliminary NO GROWTH AFTER 48 HOURS Resulted 05/24/17 22:45 Cerebral Spinal Fluid Gram Stain - Final Resulted 05/24/17 22:45 Cerebral Spinal Fluid CSF Culture - Preliminary NO GROWTH AFTER 48 HOURS Resulted 05/25/17 23:49 Nasal Nares MRSA Culture - Final NO METHICILLIN RESISTANT STAPH AUREUS... Complete 05/25/17 23:49 Rectum VRE Culture - Final Enterococcus Faecalis - Vre Complete Laboratory Tests Test 05/27/17 06:00 Sodium Level 137 MMOL/L (136-145) Potassium Level 3.6 MMOL/L (3.5-5.1) Chloride Level 101 MMOL/L (98-107) Carbon Dioxide Level 30 MMOL/L (21-32) Anion Gap 7 mmol/L (5-15) Blood Urea Nitrogen 5 mg/dL (7-18) L Creatinine 1.0 MG/DL (0.55-1.30) Estimat Glomerular Filtration Rate > 60 mL/min (>60) Glucose Level 105 MG/DL (74-106) Calcium Level 8.1 MG/DL (8.5-10.1) L Phosphorus Level 1.7 MG/DL (2.5-4.9) L Current Medications Medications (Trade) Dose Ordered Sig/Olivia Route PRN Reason Start Time Stop Time Status Last Admin Dose Admin Acetaminophen (Tylenol) 650 mg Q4H PRN ORAL Fever/Headache/Mild Pain 05/25/17 06:45 06/24/17 06:44 05/26/17 13:32 Cefepime HCl 2 gm/ Dextrose 55 ml @ 110 mls/hr EVERY 12 HOURS IVPB 05/25/17 23:00 06/01/17 22:59 05/27/17 09:35 Chlorhexidine Gluconate (Nikkie-Hex 2%) 1 applic DAILY@2000 TOPIC 05/26/17 20:00 06/25/17 19:59 05/26/17 20:09 Heparin Sodium (Porcine) (Heparin 5000 units/ml) 5,000 units BID SUBQ 05/25/17 09:00 06/24/17 08:59 05/27/17 09:41 Levetiracetam 100 ml @ 400 mls/hr TID IVPB 05/25/17 09:00 06/24/17 08:59 05/27/17 13:38 Lorazepam (Ativan 2mg/ml 1ml) 1 mg PRN PRN IV For Seizures 05/25/17 06:45 06/01/17 06:44 05/27/17 14:55 Midazolam HCl 250 mg/Dextrose 600 ml @ 0 mls/hr Q24H IV 05/25/17 16:01 06/24/17 16:00 05/27/17 00:07 Pantoprazole (Protonix) 40 mg DAILY IVP 05/27/17 09:00 06/26/17 08:59 05/27/17 09:36 Sodium 1,000 ml @ 100 mls/hr Q10H IV 05/26/17 10:00 06/25/17 09:59 05/27/17 06:07 Sodium Phosphate 30 mm/Sodium Chloride 285 ml @ 47.5 mls/hr ONCE ONCE IVPB 05/27/17 16:00 05/27/17 21:59 Vancomycin HCl (Vanco rx to dose) 1 ea DAILY PRN MISC Per rx protocol 05/25/17 22:15 06/24/17 22:14 Vancomycin HCl 1 gm/Dextrose 275 ml @ 183.708 mls/hr Q12H IVPB 05/26/17 12:00 05/31/17 11:59 05/27/17 11:49 JUSTICE ALMAZAN May 27, 2017 16:03
[2017-05-27] MEDS: Dyna-Hex 2% Top Sol 2oz TOPIC SCH (20:06)
[2017-05-28] VITALS (38 sets, daily range): BP systolic 106–138; BP diastolic 56–82
[2017-05-28] MEDS: 1/2NS w/KCl 20mEq 1000ml 1,000 ML IV SCH ×3 (01:01→22:03)
[2017-05-28] MEDS: LORazepam Inj 2mg/ml 1ml IV PRN (03:09)
[2017-05-28] MEDS: D5W IV SCH (06:02)
[2017-05-28] MEDS: MIDAZOLAM FOR DRIP IV SCH (06:02)
--- NOTE | 2017-05-28 07:23 | General Progress Note ---
Assessment/Plan Assessment/Plan IMPRESSION leukocytosis, likely leukomoid respiratory failure acute encephalopathy seizure hyponatremia rhabdo PLAN feeds ID, renal, neuro ventilator management neuro evaluation appreciated propofol and fentanyl taper as able ativan PRN feeds try to wean medications/laboratory data/nursing notes/ICU care reviewed in detail note reviewed and edited care discussed with RN and RT Subjective Allergies: Coded Allergies: No Known Allergies (Unverified , 05/24/17) Subjective more responsive on vent Objective Last 24 Hour Vital Signs Date Time Temp Pulse Resp B/P (MAP) Pulse Ox O2 Delivery O2 Flow Rate FiO2 05/28/17 06:56 79 15 40 05/28/17 06:02 15 05/28/17 06:00 86 15 106/57 99 Mechanical Ventilator 40 05/28/17 05:29 82 14 40 05/28/17 05:00 91 14 134/71 100 Mechanical Ventilator 40 05/28/17 05:00 15 05/28/17 04:00 15 05/28/17 04:00 40 05/28/17 04:00 78 05/28/17 04:00 98.7 96 14 111/71 100 Mechanical Ventilator 40 05/28/17 03:28 89 15 40 05/28/17 03:00 98 18 106/56 100 Mechanical Ventilator 40 05/28/17 03:00 15 05/28/17 02:00 27 05/28/17 02:00 95 22 113/69 100 Mechanical Ventilator 40 05/28/17 01:14 73 16 40 05/28/17 01:01 15 05/28/17 01:00 69 15 106/69 98 Mechanical Ventilator 40 05/28/17 00:00 71 05/28/17 00:00 98.7 96 13 111/71 99 Mechanical Ventilator 40 05/28/17 00:00 13 05/28/17 00:00 40 05/27/17 23:21 83 14 40 05/27/17 23:19 98.9 05/27/17 23:00 15 05/27/17 23:00 98.9 80 16 104/56 99 Mechanical Ventilator 40 05/27/17 22:00 13 05/27/17 22:00 100.1 101 11 113/67 100 Mechanical Ventilator 40 05/27/17 21:29 112 22 40 05/27/17 21:00 99.3 89 15 120/67 100 Mechanical Ventilator 40 05/27/17 21:00 14 05/27/17 20:00 16 05/27/17 20:00 100.0 91 14 109/64 100 Mechanical Ventilator 40 05/27/17 20:00 40 05/27/17 20:00 91 05/27/17 19:23 111 26 40 05/27/17 19:00 108 23 115/74 100 Mechanical Ventilator 40 05/27/17 19:00 20 05/27/17 18:30 89 16 104/64 100 Mechanical Ventilator 40 05/27/17 18:12 15 05/27/17 18:00 16 05/27/17 18:00 90 16 107/57 100 Mechanical Ventilator 40 05/27/17 17:30 94 16 104/52 100 Mechanical Ventilator 40 05/27/17 17:11 111 26 40 05/27/17 17:00 112 16 146/70 100 Mechanical Ventilator 40 05/27/17 17:00 16 05/27/17 16:30 90 14 118/69 100 Mechanical Ventilator 40 05/27/17 16:00 40 05/27/17 16:00 88 05/27/17 16:00 98.8 87 14 112/60 100 Mechanical Ventilator 40 05/27/17 16:00 15 05/27/17 15:30 88 16 112/60 100 Mechanical Ventilator 40 05/27/17 15:00 88 16 113/63 100 Mechanical Ventilator 40 05/27/17 14:35 108 22 40 05/27/17 14:30 101 15 135/90 100 Mechanical Ventilator 40 05/27/17 14:00 83 14 118/68 100 Mechanical Ventilator 40 05/27/17 13:30 85 16 119/62 100 Mechanical Ventilator 40 05/27/17 13:00 108 17 121/68 100 Mechanical Ventilator 40 05/27/17 12:35 84 15 40 05/27/17 12:30 85 15 120/66 100 Mechanical Ventilator 40 05/27/17 12:00 99 15 125/65 100 Mechanical Ventilator 40 05/27/17 12:00 82 05/27/17 12:00 40 05/27/17 11:30 98.7 83 15 116/63 100 Mechanical Ventilator 40 05/27/17 11:00 15 05/27/17 11:00 83 15 118/65 100 Mechanical Ventilator 40 05/27/17 10:32 93 18 40 05/27/17 10:30 83 16 120/73 100 Mechanical Ventilator 40 05/27/17 10:00 84 17 109/57 99 Mechanical Ventilator 40 05/27/17 10:00 15 05/27/17 09:30 86 17 112/58 100 Mechanical Ventilator 40 05/27/17 09:00 84 16 117/61 100 Mechanical Ventilator 40 05/27/17 09:00 17 05/27/17 08:37 113 28 40 05/27/17 08:30 101 15 126/82 100 Mechanical Ventilator 40 05/27/17 08:00 88 05/27/17 08:00 16 05/27/17 08:00 98.8 86 17 114/61 100 Mechanical Ventilator 40 05/27/17 08:00 40 05/27/17 07:30 88 16 118/64 100 Mechanical Ventilator 40 Intake and Output 05/27/17 05/28/17 19:00 07:00 Intake Total 2396.208 ml 1685.0 ml Output Total 2075 ml 2645 ml Balance 321.208 ml -960.0 ml IV Total 2366.208 ml 1635.0 ml Other 30 ml 50 ml Output Urine Total 2075 ml 2645 ml Height (Feet): 5 Height (Inches): 10.00 Weight (Pounds): 158 Objective WDWN NAD on ETT clear breath sounds bilaterally without rhonchi or wheeze [id number] without MRG NABS nontender no HSM no CCE on drips DONNA OLIVA May 28, 2017 07:23
[2017-05-28] MEDS: Heparin 5000 units/ml inj SUBQ SCH ×3 (08:52→17:53)
[2017-05-28] MEDS: levETIRAcetam 500mg/NS100ml 100 ML IVPB SCH ×3 (08:53→17:52)
[2017-05-28] MEDS: Pantoprazole Inj IVP SCH (08:56)
--- NOTE | 2017-05-28 14:25 | Infectious Diseases Prog Note ---
Assessment/Plan Assessment/Plan antibiotics : none A 1. leucocytosis resolved 2. rhabdomyolysis 3. encephalopathy 4. respiratory failure 5. hyponatremia improving P 1. continue off antibiotics Subjective ROS Limited/Unobtainable: Yes Allergies: Coded Allergies: No Known Allergies (Unverified , 05/24/17) Objective Vital Signs Last 24 Hour Vital Signs Date Time Temp Pulse Resp B/P (MAP) Pulse Ox O2 Delivery O2 Flow Rate FiO2 05/28/17 13:00 107 12 136/82 100 Mechanical Ventilator 40 05/28/17 13:00 12 05/28/17 12:43 90 12 40 05/28/17 12:00 14 05/28/17 12:00 99.2 87 12 116/58 100 Mechanical Ventilator 40 05/28/17 11:40 89 05/28/17 11:30 40 05/28/17 11:30 111 11 40 05/28/17 11:30 90 11 128/64 100 Mechanical Ventilator 40 05/28/17 11:00 14 05/28/17 11:00 110 14 137/62 100 Mechanical Ventilator 40 05/28/17 10:56 92 15 40 05/28/17 10:30 90 14 123/66 100 Mechanical Ventilator 40 05/28/17 10:15 88 13 119/70 100 Mechanical Ventilator 40 05/28/17 10:00 91 13 117/63 100 Mechanical Ventilator 40 05/28/17 10:00 13 05/28/17 09:45 90 14 120/57 100 Mechanical Ventilator 40 05/28/17 09:30 88 14 123/73 100 Mechanical Ventilator 40 05/28/17 09:15 102 13 123/73 100 Mechanical Ventilator 40 05/28/17 09:05 81 14 40 05/28/17 09:00 14 05/28/17 09:00 104 14 123/73 100 Mechanical Ventilator 40 05/28/17 08:45 101 13 123/73 100 Mechanical Ventilator 40 05/28/17 08:30 101 13 123/73 100 Mechanical Ventilator 40 05/28/17 08:28 81 05/28/17 08:15 84 13 123/73 100 Mechanical Ventilator 40 05/28/17 08:00 98.6 81 14 112/65 100 Mechanical Ventilator 40 05/28/17 08:00 13 05/28/17 08:00 40 05/28/17 07:00 14 05/28/17 07:00 79 14 112/64 100 Mechanical Ventilator 40 05/28/17 06:56 79 15 40 05/28/17 06:02 15 05/28/17 06:00 86 15 106/57 99 Mechanical Ventilator 40 05/28/17 05:29 82 14 40 05/28/17 05:00 91 14 134/71 100 Mechanical Ventilator 40 05/28/17 05:00 15 05/28/17 04:00 15 05/28/17 04:00 40 05/28/17 04:00 78 05/28/17 04:00 98.7 96 14 111/71 100 Mechanical Ventilator 40 05/28/17 03:28 89 15 40 05/28/17 03:00 98 18 106/56 100 Mechanical Ventilator 40 05/28/17 03:00 15 05/28/17 02:00 27 05/28/17 02:00 95 22 113/69 100 Mechanical Ventilator 40 05/28/17 01:14 73 16 40 05/28/17 01:01 15 05/28/17 01:00 69 15 106/69 98 Mechanical Ventilator 40 05/28/17 00:00 71 05/28/17 00:00 98.7 96 13 111/71 99 Mechanical Ventilator 40 05/28/17 00:00 13 05/28/17 00:00 40 05/27/17 23:21 83 14 40 05/27/17 23:19 98.9 05/27/17 23:00 15 05/27/17 23:00 98.9 80 16 104/56 99 Mechanical Ventilator 40 05/27/17 22:00 13 05/27/17 22:00 100.1 101 11 113/67 100 Mechanical Ventilator 40 05/27/17 21:29 112 22 40 05/27/17 21:00 99.3 89 15 120/67 100 Mechanical Ventilator 40 05/27/17 21:00 14 05/27/17 20:00 16 05/27/17 20:00 100.0 91 14 109/64 100 Mechanical Ventilator 40 05/27/17 20:00 40 05/27/17 20:00 91 05/27/17 19:23 111 26 40 05/27/17 19:00 108 23 115/74 100 Mechanical Ventilator 40 05/27/17 19:00 20 05/27/17 18:30 89 16 104/64 100 Mechanical Ventilator 40 05/27/17 18:12 15 05/27/17 18:00 16 05/27/17 18:00 90 16 107/57 100 Mechanical Ventilator 40 05/27/17 17:30 94 16 104/52 100 Mechanical Ventilator 40 05/27/17 17:11 111 26 40 05/27/17 17:00 112 16 146/70 100 Mechanical Ventilator 40 05/27/17 17:00 16 05/27/17 16:30 90 14 118/69 100 Mechanical Ventilator 40 05/27/17 16:00 40 05/27/17 16:00 88 05/27/17 16:00 98.8 87 14 112/60 100 Mechanical Ventilator 40 05/27/17 16:00 15 05/27/17 15:30 88 16 112/60 100 Mechanical Ventilator 40 05/27/17 15:00 88 16 113/63 100 Mechanical Ventilator 40 05/27/17 14:35 108 22 40 05/27/17 14:30 101 15 135/90 100 Mechanical Ventilator 40 Height (Feet): 5 Height (Inches): 10.00 Weight (Pounds): 158 HEENT: other - intubated Respiratory/Chest: lungs clear Cardiovascular: normal rate, regular rhythm, no gallop/murmur Abdomen: soft, non tender Extremities: no edema, other - right groin catheter Microbiology Date/Time Source Procedure Growth Status 05/26/17 04:00 Nasal Nares MRSA Culture - Final NO METHICILLIN RESISTANT STAPH AUREUS... Complete 05/25/17 23:49 Nasal Nares MRSA Culture - Final NO METHICILLIN RESISTANT STAPH AUREUS... Complete 05/26/17 04:00 Rectum VRE Culture - Final Enterococcus Faecalis - Vre Complete 05/25/17 23:49 Rectum VRE Culture - Final Enterococcus Faecalis - Vre Complete Laboratory Tests Test 05/28/17 13:59 Arterial Blood pH Pending Arterial Blood Partial Pressure CO2 Pending Arterial Blood Partial Pressure O2 Pending Arterial Blood HCO3 Pending Arterial Blood Oxygen Saturation Pending Arterial Blood Base Excess Pending Santino Test Pending KUNAL PETTY May 28, 2017 14:25
[2017-05-28] MEDS: Dyna-Hex 2% Top Sol 2oz TOPIC SCH (20:36)
[2017-05-29] VITALS (18 sets, daily range): BP systolic 109–150; BP diastolic 48–98
[2017-05-29] MEDS ORDERED: Zemuron 50mg/5ml Inj IV ONE ×2 (08:56→08:57)
[2017-05-29] MEDS ORDERED: Etomidate 40mg/20ml Inj IV ONE (08:57)
[2017-05-29] MEDS: levETIRAcetam 500mg/NS100ml 100 ML IVPB SCH ×3 (09:15→18:40)
[2017-05-29] MEDS: 1/2NS w/KCl 20mEq 1000ml 1,000 ML IV SCH (09:15)
[2017-05-29] MEDS: Pantoprazole Inj IVP SCH (09:15)
[2017-05-29] MEDS: Heparin 5000 units/ml inj SUBQ SCH (09:18)
--- NOTE | 2017-05-29 13:40 | Infectious Diseases Prog Note ---
Assessment/Plan Assessment/Plan antibiotics : none A 1. leucocytosis resolved 2. rhabdomyolysis 3. encephalopathy 4. respiratory failure resolved 5. hyponatremia resolved P 1. continue off antibiotics Subjective Constitutional: Denies: fever, chills Respiratory: Denies: shortness of breath, dry cough Gastrointestinal/Abdominal: Denies: nausea, vomiting, diarrhea Musculoskeletal: Denies: pain Allergies: Coded Allergies: No Known Allergies (Unverified , 05/24/17) Objective Vital Signs Last 24 Hour Vital Signs Date Time Temp Pulse Resp B/P (MAP) Pulse Ox O2 Delivery O2 Flow Rate FiO2 05/29/17 12:00 94 12 111/53 99 Nasal Cannula 3.0 05/29/17 11:00 100 10 111/70 99 Nasal Cannula 3.0 05/29/17 10:00 96 12 118/75 99 Nasal Cannula 3.0 05/29/17 09:00 96 11 119/77 100 Nasal Cannula 3.0 05/29/17 08:00 98.8 99 14 127/64 99 Nasal Cannula 3.0 05/29/17 07:35 83 05/29/17 07:00 102 12 113/65 100 Nasal Cannula 3.0 05/29/17 06:00 88 12 127/75 100 Nasal Cannula 3.0 05/29/17 05:00 89 12 132/72 100 Nasal Cannula 3.0 05/29/17 04:00 99.6 94 12 111/56 100 Nasal Cannula 3.0 05/29/17 04:00 96 05/29/17 03:00 110 20 113/52 96 Nasal Cannula 3.0 05/29/17 02:00 91 14 117/48 93 Nasal Cannula 3.0 05/29/17 01:00 93 12 118/57 97 Nasal Cannula 3.0 05/29/17 00:00 96 05/29/17 00:00 98.9 96 12 110/64 96 Nasal Cannula 3.0 05/28/17 23:00 107 13 116/69 97 Nasal Cannula 3.0 05/28/17 22:00 111 13 135/75 98 Nasal Cannula 3.0 05/28/17 21:00 104 11 123/71 99 Nasal Cannula 3.0 05/28/17 20:00 108 05/28/17 20:00 98.8 114 22 109/78 100 Nasal Cannula 3.0 05/28/17 19:30 Nasal Cannula 2.0 28 05/28/17 19:30 94 Nasal Cannula 2.0 28 05/28/17 19:00 103 16 114/64 100 Nasal Cannula 05/28/17 18:00 114 16 138/76 98 Nasal Cannula 3.0 05/28/17 17:15 3.0 05/28/17 17:12 3.0 05/28/17 17:00 114 16 125/76 100 Simple Mask 6.0 05/28/17 16:15 100 Simple Mask 6.0 05/28/17 16:15 Simple Mask 6.0 05/28/17 16:15 112 24 Simple Mask 6.0 05/28/17 16:15 Simple Mask 6.0 05/28/17 16:15 6.0 05/28/17 16:00 110 05/28/17 16:00 99.2 101 12 137/78 100 Mechanical Ventilator 40 05/28/17 15:30 117 12 133/76 100 Mechanical Ventilator 40 05/28/17 15:00 13 05/28/17 15:00 109 12 124/64 100 Mechanical Ventilator 40 05/28/17 14:30 114 12 132/74 100 Mechanical Ventilator 40 05/28/17 14:30 112 11 28 05/28/17 14:24 28 05/28/17 14:18 28 05/28/17 14:00 110 12 121/71 100 Mechanical Ventilator 40 05/28/17 14:00 13 Height (Feet): 5 Height (Inches): 10.00 Weight (Pounds): 152 Respiratory/Chest: lungs clear Cardiovascular: normal rate, regular rhythm, no gallop/murmur Abdomen: soft, non tender Extremities: no edema Laboratory Tests Test 05/28/17 13:59 Arterial Blood pH 7.450 (7.350-7.450) Arterial Blood Partial Pressure CO2 42.3 mmHg (35.0-45.0) Arterial Blood Partial Pressure O2 188.0 mmHg (75.0-100.0) H Arterial Blood HCO3 29.1 mmol/L (22.0-26.0) H Arterial Blood Oxygen Saturation 99.0 % (92.0-98.0) H Arterial Blood Base Excess 4.7 Santino Test Positive KUNAL ENNIS May 29, 2017 13:40
--- NOTE | 2017-05-29 14:09 | General Progress Note ---
Assessment/Plan Assessment/Plan IMPRESSION leukocytosis, likely leukomoid respiratory failure acute encephalopathy seizure hyponatremia rhabdo PLAN po diet ID to comment transfer to floor PT medications/laboratory data/nursing notes/ICU care reviewed in detail note reviewed and edited care discussed with RN and RT Subjective Allergies: Coded Allergies: No Known Allergies (Unverified , 05/24/17) Subjective alert off vent d/w mother in detail Objective Last 24 Hour Vital Signs Date Time Temp Pulse Resp B/P (MAP) Pulse Ox O2 Delivery O2 Flow Rate FiO2 05/29/17 12:00 94 12 111/53 99 Nasal Cannula 3.0 05/29/17 11:00 100 10 111/70 99 Nasal Cannula 3.0 05/29/17 10:00 96 12 118/75 99 Nasal Cannula 3.0 05/29/17 09:00 96 11 119/77 100 Nasal Cannula 3.0 05/29/17 08:00 98.8 99 14 127/64 99 Nasal Cannula 3.0 05/29/17 07:35 83 05/29/17 07:00 102 12 113/65 100 Nasal Cannula 3.0 05/29/17 06:00 88 12 127/75 100 Nasal Cannula 3.0 05/29/17 05:00 89 12 132/72 100 Nasal Cannula 3.0 05/29/17 04:00 99.6 94 12 111/56 100 Nasal Cannula 3.0 05/29/17 04:00 96 05/29/17 03:00 110 20 113/52 96 Nasal Cannula 3.0 05/29/17 02:00 91 14 117/48 93 Nasal Cannula 3.0 05/29/17 01:00 93 12 118/57 97 Nasal Cannula 3.0 05/29/17 00:00 96 05/29/17 00:00 98.9 96 12 110/64 96 Nasal Cannula 3.0 05/28/17 23:00 107 13 116/69 97 Nasal Cannula 3.0 05/28/17 22:00 111 13 135/75 98 Nasal Cannula 3.0 05/28/17 21:00 104 11 123/71 99 Nasal Cannula 3.0 05/28/17 20:00 108 05/28/17 20:00 98.8 114 22 109/78 100 Nasal Cannula 3.0 05/28/17 19:30 Nasal Cannula 2.0 28 05/28/17 19:30 94 Nasal Cannula 2.0 28 05/28/17 19:00 103 16 114/64 100 Nasal Cannula 05/28/17 18:00 114 16 138/76 98 Nasal Cannula 3.0 05/28/17 17:15 3.0 05/28/17 17:12 3.0 05/28/17 17:00 114 16 125/76 100 Simple Mask 6.0 05/28/17 16:15 100 Simple Mask 6.0 05/28/17 16:15 Simple Mask 6.0 05/28/17 16:15 112 24 Simple Mask 6.0 05/28/17 16:15 Simple Mask 6.0 05/28/17 16:15 6.0 05/28/17 16:00 110 05/28/17 16:00 99.2 101 12 137/78 100 Mechanical Ventilator 40 05/28/17 15:30 117 12 133/76 100 Mechanical Ventilator 40 05/28/17 15:00 13 05/28/17 15:00 109 12 124/64 100 Mechanical Ventilator 40 05/28/17 14:30 114 12 132/74 100 Mechanical Ventilator 40 05/28/17 14:30 112 11 28 05/28/17 14:24 28 05/28/17 14:18 28 Intake and Output 05/28/17 05/29/17 19:00 07:00 Intake Total 1845 ml 1290 ml Output Total 1760 ml 2125 ml Balance 85 ml -835 ml Intake Free Water 50 ml IV Total 1635 ml 1200 ml Tube Feeding 160 ml 90 ml Output Urine Total 1760 ml 2125 ml Height (Feet): 5 Height (Inches): 10.00 Weight (Pounds): 152 Objective WDWN NAD off vent clear breath sounds bilaterally without rhonchi or wheeze [id number] without MRG NABS nontender no HSM no CCE nonfocal DONNA OLIVA May 29, 2017 14:08
[2017-05-29] MEDS ORDERED: Heparin 5000 units/ml inj SUBQ SCH (18:00)
[2017-05-30] VITALS: BP 150/88
[2017-05-30 04:00] VITALS: BP 151/94
[2017-05-30 07:49] VITALS: BP 129/85
--- NOTE | 2017-05-30 08:24 | General Progress Note ---
Assessment/Plan Assessment/Plan IMPRESSION leukocytosis, likely leukomoid respiratory failure acute encephalopathy seizure hyponatremia rhabdo PLAN speech and PT case management to assist home dc when safe medications/laboratory data/nursing notes/ICU care reviewed in detail note reviewed and edited care discussed with RN and RT Subjective Allergies: Coded Allergies: No Known Allergies (Unverified , 05/24/17) Subjective alert very unsteady Objective Last 24 Hour Vital Signs Date Time Temp Pulse Resp B/P (MAP) Pulse Ox O2 Delivery O2 Flow Rate FiO2 05/30/17 07:49 97.9 104 20 129/85 96 05/30/17 04:00 98.2 100 18 151/94 96 Nasal Cannula 2.0 05/30/17 00:00 97.7 105 18 150/88 95 Nasal Cannula 2.0 05/29/17 20:00 97.9 99 20 150/85 96 05/29/17 16:00 104 18 115/98 99 Nasal Cannula 2.0 05/29/17 16:00 104 05/29/17 15:00 113 19 113/68 100 Nasal Cannula 3.0 05/29/17 14:00 100 14 109/58 99 Nasal Cannula 3.0 05/29/17 13:00 101 12 110/55 99 Nasal Cannula 3.0 05/29/17 12:00 98.9 94 12 111/53 99 Nasal Cannula 3.0 05/29/17 11:22 105 05/29/17 11:00 100 10 111/70 99 Nasal Cannula 3.0 05/29/17 10:00 96 12 118/75 99 Nasal Cannula 3.0 05/29/17 09:00 96 11 119/77 100 Nasal Cannula 3.0 Intake and Output 05/29/17 05/30/17 19:00 07:00 Intake Total 850 ml Output Total 1910 ml Balance -1060 ml IV Total 850 ml Output Urine Total 1910 ml Height (Feet): 5 Height (Inches): 10.00 Weight (Pounds): 148 Objective WDWN NAD off vent clear breath sounds bilaterally without rhonchi or wheeze [id number] without MRG NABS nontender no HSM no CCE nonfocal DONNA OLIVA May 30, 2017 08:24
[2017-05-30] MEDS ORDERED: Pantoprazole Inj IVP SCH (09:00)
[2017-05-30] MEDS: levETIRAcetam 500mg/NS100ml 100 ML IVPB SCH ×5 (09:12→17:16)
[2017-05-30 11:24] VITALS: BP 130/75
--- NOTE | 2017-05-30 13:43 | Infectious Diseases Prog Note ---
Assessment/Plan Assessment/Plan A; SIRS/ Sepsis Toxic encephalopathy Patellar tendon rupture Respiratory failure Rhabdomyolysis P; observe off antibiotic Subjective ROS Limited/Unobtainable: No Constitutional: Reports: no symptoms Respiratory: Reports: dry cough Cardiovascular: Reports: no symptoms Gastrointestinal/Abdominal: Reports: no symptoms Genitourinary: Reports: no symptoms Allergies: Coded Allergies: No Known Allergies (Unverified , 05/24/17) Objective Vital Signs Last 24 Hour Vital Signs Date Time Temp Pulse Resp B/P (MAP) Pulse Ox O2 Delivery O2 Flow Rate FiO2 05/30/17 11:24 98.2 103 19 130/75 98 05/30/17 07:49 97.9 104 20 129/85 96 05/30/17 04:00 98.2 100 18 151/94 96 Nasal Cannula 2.0 05/30/17 00:00 97.7 105 18 150/88 95 Nasal Cannula 2.0 05/29/17 20:00 97.9 99 20 150/85 96 05/29/17 16:00 104 18 115/98 99 Nasal Cannula 2.0 05/29/17 16:00 104 05/29/17 15:00 113 19 113/68 100 Nasal Cannula 3.0 05/29/17 14:00 100 14 109/58 99 Nasal Cannula 3.0 Height (Feet): 5 Height (Inches): 10.00 Weight (Pounds): 148 General Appearance: no acute distress HEENT: mucous membranes moist Respiratory/Chest: lungs clear Cardiovascular: normal rate Abdomen: soft, non tender Extremities: no edema Neurologic/Psychiatric: alert, oriented x 3, responsive Current Medications Medications (Trade) Dose Ordered Sig/Olivia Route PRN Reason Start Time Stop Time Status Last Admin Dose Admin Acetaminophen (Tylenol) 650 mg Q4H PRN ORAL Fever/Headache/Mild Pain 05/29/17 18:45 06/24/17 06:44 05/30/17 00:20 Levetiracetam 100 ml @ 400 mls/hr TID IVPB 05/29/17 18:00 06/24/17 08:59 05/30/17 13:15 Pantoprazole (Protonix) 40 mg DAILY IVP 05/30/17 09:00 06/26/17 08:59 05/30/17 09:13 JUSTICE ALMAZAN May 30, 2017 13:42
--- NOTE | 2017-05-30 15:10 | Cardiology Report ---
APPROVED REPORT EKG Measurement Heart [id number] Normal sinus rhythm Normal ECG
[2017-05-30 16:00] VITALS: BP 129/78
[2017-05-30 20:00] VITALS: BP 120/85
[2017-05-31] VITALS: BP 143/89
[2017-05-31 04:00] VITALS: BP 110/79
[2017-05-31 08:00] VITALS: BP 136/87
--- NOTE | 2017-05-31 08:29 | General Progress Note ---
Assessment/Plan Assessment/Plan IMPRESSION leukocytosis, likely leukomoid respiratory failure acute encephalopathy seizure hyponatremia rhabdo PLAN speech and PT case management to assist with dc home dc when safe otherwise stable Subjective Allergies: Coded Allergies: No Known Allergies (Unverified , 05/24/17) Subjective alert very unsteady Objective Last 24 Hour Vital Signs Date Time Temp Pulse Resp B/P (MAP) Pulse Ox O2 Delivery O2 Flow Rate FiO2 05/31/17 04:00 98.2 101 20 110/79 97 05/31/17 00:00 99.9 100 20 143/89 96 05/30/17 20:00 97.3 113 20 120/85 97 05/30/17 16:00 99.0 100 20 129/78 95 05/30/17 11:24 98.2 103 19 130/75 98 Intake and Output 05/30/17 05/31/17 19:00 07:00 Intake Total 580 ml Balance 580 ml Intake Oral 480 ml IV Total 100 ml # Voids 3 3 Height (Feet): 5 Height (Inches): 10.00 Weight (Pounds): 142 Objective WDWN NAD off vent clear breath sounds bilaterally without rhonchi or wheeze [id number] without MRG NABS nontender no HSM no CCE nonfocal DONNA OLIVA May 31, 2017 08:29
[2017-05-31] MEDS: levETIRAcetam 500mg/NS100ml 100 ML IVPB SCH (08:46)
[2017-05-31 12:00] VITALS: BP 115/75
--- NOTE | 2017-05-31 12:08 | Consultation ---
History of Present Illness General Date patient seen: May 30, 2017 Chief Complaint: Seizure Present Illness HPI 27-year-old male admitted on 05/25/2017 because of altered mental status and he was not feeling well, on the route of hospital, the patient had a generalized tonic-clonic seizure. He was intubated in the ER, transferred to ICU. poor historian. slightly confused. Allergies: Coded Allergies: No Known Allergies (Unverified , 05/24/17) Medication History No Active Prescriptions or Reported Meds Patient History Limited by: medical condition History Provided By: Patient, Medical Record, PMD Healthcare decision maker Resuscitation status Advanced Directive on File unk Past Medical/Surgical History Past Medical/Surgical History: (1) Hypokalemia (2) Lactic acidosis (3) Hyponatremia (4) Rhabdomyolysis (5) Altered mental status (6) Patellar tendon rupture (7) Methamphetamine abuse (8) Effusion, right knee Physical Exam General Appearance: no apparent distress, alert Neurologic: alert, oriented x 3, responsive Last 24 Hour Vital Signs Date Time Temp Pulse Resp B/P (MAP) Pulse Ox O2 Delivery O2 Flow Rate FiO2 05/31/17 08:00 98.8 102 20 136/87 97 05/31/17 04:00 98.2 101 20 110/79 97 05/31/17 00:00 99.9 100 20 143/89 96 05/30/17 20:00 97.3 113 20 120/85 97 05/30/17 16:00 99.0 100 20 129/78 95 Intake and Output 05/30/17 05/31/17 19:00 07:00 Intake Total 580 ml Balance 580 ml Intake Oral 480 ml IV Total 100 ml # Voids 3 3 Height (Feet): 5 Height (Inches): 10.00 Weight (Pounds): 142 Medications Current Medications Medications (Trade) Dose Ordered Sig/Olivia Route PRN Reason Start Time Stop Time Status Last Admin Dose Admin Acetaminophen (Tylenol) 650 mg Q4H PRN ORAL Fever/Headache/Mild Pain 05/29/17 18:45 06/24/17 06:44 05/31/17 02:30 Levetiracetam (Keppra) 500 mg Q12HR ORAL 05/31/17 09:00 06/30/17 08:59 05/31/17 08:47 Assessment/Plan Status: stable Assessment/Plan cognitive impairment crystal meth -no steves Jemima Hayden M.D. May 31, 2017 12:08
--- NOTE | 2017-05-31 12:11 | General Progress Note ---
Assessment/Plan Status: stable, progressing Assessment/Plan the pt may be discharged not holdable Subjective Date patient seen: May 31, 2017 Neurologic/Psychiatric: Reports: anxiety, depressed, emotional problems Allergies: Coded Allergies: No Known Allergies (Unverified , 05/24/17) Objective Last 24 Hour Vital Signs Date Time Temp Pulse Resp B/P (MAP) Pulse Ox O2 Delivery O2 Flow Rate FiO2 05/31/17 08:00 98.8 102 20 136/87 97 05/31/17 04:00 98.2 101 20 110/79 97 05/31/17 00:00 99.9 100 20 143/89 96 05/30/17 20:00 97.3 113 20 120/85 97 05/30/17 16:00 99.0 100 20 129/78 95 Intake and Output 05/30/17 05/31/17 19:00 07:00 Intake Total 580 ml Balance 580 ml Intake Oral 480 ml IV Total 100 ml # Voids 3 3 Height (Feet): 5 Height (Inches): 10.00 Weight (Pounds): 142 General Appearance: no apparent distress, alert Jemima Hayden M.D. May 31, 2017 12:11
--- NOTE | 2017-05-31 12:42 | Infectious Diseases Prog Note ---
Assessment/Plan Assessment/Plan antibiotics : none A 1. leucocytosis resolved 2. rhabdomyolysis 3. encephalopathy 4. respiratory failure resolved 5. hyponatremia resolved P 1. continue off antibiotics Subjective Respiratory: Denies: shortness of breath, dry cough Gastrointestinal/Abdominal: Reports: nausea, Denies: vomiting, diarrhea Musculoskeletal: Reports: pain Allergies: Coded Allergies: No Known Allergies (Unverified , 05/24/17) Objective Vital Signs Last 24 Hour Vital Signs Date Time Temp Pulse Resp B/P (MAP) Pulse Ox O2 Delivery O2 Flow Rate FiO2 05/31/17 08:00 98.8 102 20 136/87 97 05/31/17 04:00 98.2 101 20 110/79 97 05/31/17 00:00 99.9 100 20 143/89 96 05/30/17 20:00 97.3 113 20 120/85 97 05/30/17 16:00 99.0 100 20 129/78 95 Height (Feet): 5 Height (Inches): 10.00 Weight (Pounds): 142 Respiratory/Chest: lungs clear Cardiovascular: normal rate, regular rhythm, no gallop/murmur Abdomen: soft, non tender Extremities: no edema KUNAL ENNIS May 31, 2017 12:42
[2017-05-31 16:00] VITALS: BP 130/85
[2017-05-31] MEDS ORDERED: Tubing IV Secondary IV ONE ×7 (19:28→20:59)
[2017-05-31 20:00] VITALS: BP 116/77
--- NOTE | 2017-05-31 20:45 | Progress Note ---
SUBJECTIVE: The patient is calm, in no acute distress. Alert and oriented. He is able to provide history, however, his response time is lagging and there is a delay when question is asked. The patient admits that he has been using crystal meth to change for body building. The patient has poor insight and judgment into his addiction. He states that he is not having any addiction to crystal meth. PAST PSYCHIATRIC HISTORY: He denies any psychiatric history. He denies any psychiatric symptoms. He denies any suicide attempt. PAST MEDICAL HISTORY: None. The patient has impairment of cognition. MENTAL STATUS EXAMINATION: The patient is alert and oriented times self, place, and situation. Mood is neutral. Affect is flat, congruent with mood. Thought process is concrete. Thought content, no suicidal or homicidal ideation. ASSESSMENT: 1. Methamphetamine addiction. 2. Toxicity. 3. Cognitive impairment. PLAN: 1. No medication at this time. The patient was counseled about addiction to methamphetamine. The patient should be discharged to rehabilitation. 2. Provide the patient with supportive therapy and reality orientation. Jemima Hayden M.D. DR: JUSTIN JOB#: [id number] CC:
[2017-05-31] MEDS ORDERED: NS 275ml ONE (20:50)
[2017-05-31] MEDS ORDERED: NS 500ML ONE (20:59)
[2017-06-01] VITALS: BP 120/82
[2017-06-01 04:00] VITALS: BP 114/79
[2017-06-01 08:00] VITALS: BP 137/87
[2017-06-01 12:00] VITALS: BP 128/82
--- NOTE | 2017-06-01 12:05 | General Progress Note ---
Assessment/Plan Assessment/Plan IMPRESSION leukocytosis, likely leukomoid respiratory failure acute encephalopathy seizure hyponatremia rhabdo PLAN dc home outpatient follow up with neurology no driving discussed otherwise stable Subjective Allergies: Coded Allergies: No Known Allergies (Unverified , 05/24/17) Subjective alert possible dc with mom Objective Last 24 Hour Vital Signs Date Time Temp Pulse Resp B/P (MAP) Pulse Ox O2 Delivery O2 Flow Rate FiO2 06/01/17 08:00 96.8 95 19 137/87 95 Room Air 06/01/17 04:00 Room Air 06/01/17 04:00 97.8 102 18 114/79 97 06/01/17 00:00 98.2 102 18 120/82 97 06/01/17 00:00 Room Air 05/31/17 22:00 Room Air 05/31/17 21:44 95 Nasal Cannula 2.0 28 05/31/17 21:44 Nasal Cannula 2.0 28 05/31/17 20:44 99 24 Simple Mask 6.0 05/31/17 20:00 97.6 85 18 116/77 97 05/31/17 16:00 97.3 100 20 130/85 97 Intake and Output 05/31/17 06/01/17 19:00 07:00 Intake Total 380 ml 200 ml Balance 380 ml 200 ml Intake Oral 200 ml Other 380 ml # Voids 2 Height (Feet): 5 Height (Inches): 10.00 Weight (Pounds): 138 Objective WDWN NAD off vent clear breath sounds bilaterally without rhonchi or wheeze [id number] without MRG NABS nontender no HSM no CCE nonfocal DONNA OLIVA Jun 01, 2017 12:05
[2017-06-01] MEDS ORDERED: KEPPRA500 M4 ORAL (14:07)
--- NOTE | 2017-06-03 13:18 | Discharge Summary ---
Discharge Summary Hospital Course Date of Admission May 25, 2017 at 20:21 Date of Discharge Jun 01, 2017 at 15:00 Admitting Diagnosis altered mental status/toxic overdose HPI David Parra is a 27 year old male who was admitted on May 25, 2017 at 20:21 for Altered Mental Status; Toxic Overdose Hospital Course dc summary #[id number] Discharge Medications Continued Medications: Levetiracetam (Keppra) 500 Mg Tablet 500 MG ORAL EVERY 12 HOURS, #60 TAB 0 Refills Discharge Condition Upon Discharge: stable Discharge Disposition Patient was discharged to Home () Discharge Diagnoses: Discharge Instructions Discharge Instructions Special Instructions I have been assigned to complete a D/C Summary on this account. I was not involved in the patient management Otilia Gordon NP (Vanchtein) Jun 03, 2017 13:18
--- NOTE | 2017-06-03 16:45 | Electroencephalogram ---
DATE OF PROCEDURE: 05/25/2017 ELECTROENCEPHALOGRAPHY REPORT REQUESTING PHYSICIAN: Jaya Hammer M.D. HISTORY: This is a 27-year-old man presented with generalized seizure disorder now intubated and sedated with Versed 20 mg/hr and propofol 50 mcg/kilo/minute. The patient described as being lethargic due to sedation. EEG was done using 18 electrodes placed on scalp to scalp, scalp to ear montages according to 10[employer] System. Throughout the recording, background activity consisted of severely depressed poorly identifiable activities which progressed into burst suppression pattern with a burst of higher voltage 2 to 3 per second slowing lasting up to 3 seconds followed by several seconds of generalized suppression, poorly reactive to stimulation. There was no asymmetry from side to side. There was no spike and wave activities noted. IMPRESSION: Markedly abnormal EEG with continuous burst suppression pattern. COMMENT: Above abnormality indicates diffuse encephalopathy, global cerebral dysfunction which may relate to post anoxic brain coma, toxic metabolic derangement. Absence of paroxysmal event does not rule out seizure disorder. Josef Rojas M.D. DR: Marycarmen JOB#: [id number] CC:
--- NOTE | 2017-06-03 22:15 | Discharge Summary 2 SIG ---
DATE OF ADMISSION: 05/25/2017 DATE OF DISCHARGE: 06/01/2017 REASON FOR ADMISSION: 27-year-old male without any significant past medical history, was brought by paramedics for not feeling well. Initially, the patient was awake, alert, and oriented and stated to paramedics, that he probably took too much of his pre-workout supplements, however, en route to the hospital, the patient had generalized tonic-clonic seizure lasting less than 1 minute. After that, the patient was altered, yelling and screaming, and was not responsive. Upon evaluation in the emergency room, the patient was found to have leukocytosis, WBC -20.7. Sodium- 111, potassium -3.0. Lactic acid -4.5. Troponin negative. CK- 3402. The patient was noted to have right knee effusion . X-ray of the right knee showed findings suggestive of patellar tendon rupture. In the emergency department, the patient was urgently intubated for airway protection and altered mental status. The patient was given multiple boluses of hypertonic saline, total of 3. Potassium was replaced. Keppra was given for seizure. Seizure precautions were maintained. The patient subsequently had undergone lumbar puncture with clear fluid and unremarkable results. CT of the head revealed no evidence of acute intracranial pathology. Urine toxicology screen was positive for methamphetamine. According to Po[facility] Control [facility] with overdose on pre-workout supplements, recommended to treat if persistent seizure with phenobarbital. The patient exhibited seizure-like activity. Phenobarbital was given in ED. EKG showed normal sinus rhythm. Knee immobilizer was applied. The patient subsequently was transferred to ICU for further management with diagnoses of acute encephalopathy , acute hyponatremia, rhabdomyolysis, acute respiratory failure requiring intubation, seizures, amphetamine abuse. HOSPITAL COURSE: The patient was in ICU. Ventilator support and pulmonary toilet were provided. The patient was on the IV fluids. CK was\monitored. The patient started initially on empiric antibiotic. ID followed, however, no evidence of infection. Cerebral spinal fluid culture and blood culture were negative. The patient was off antibiotic. Leukocytosis down to 11.4. Electrolytes were closely monitored. Nephrotoxics were avoided. After IV hydration with hypertonic saline, sodium up to 137 prior to discharge. The patient was followed up with daily chest x-ray and ABG. Neurology consult was requested. Neurologist started the patient on Keppra. Seizure precautions were maintained. No further seizure activity. The patient was able to be eventually extubated. The patient was started to work with speech and physical therapists. Spearer had seen the patient for acute hyponatremia. Hyponatremia workup was reviewed, per web knitter acute hyponatremia was likely due to the excess of pre-workout supplements taken , and had resolved. Psychiatrist had seen and evaluated the patient, diagnosed him with amphetamine addiction. farmworker cranberry spoke with the patient. The patient denied drug abuse , stating that he never wants to take it again. He did not identify himself as having any drug abuse problem as well as his mother. The patient declined any resources from social worker masters. He did not verbalize any suicidal ideation or expressed any other mental health concerns. Psychiatrist diagnosed the patient with amphetamine addiction. The patient was counseled on abstinence from the street drugs. The patient was stable for discharge home. FINAL DIAGNOSES: 1. Acute toxic encephalopathy, resolved. 2. Acute respiratory failure, requiring intubation; status post extubation. 3. Acute hyponatremia, resolved. 4. Hypokalemia. 5. Lactic acidosis. 6. Seizures. 7. Amphetamine abuse/addiction. 8. Right knee effusion, likely patellar tendon rupture. DISCHARGE MEDICATIONS: See medication reconciliation list. DISCHARGE INSTRUCTIONS: Patient was discharged home. Follow up with primary medical doctor. Jaya Hammer M.D. I have been assigned to dictate discharge summary on this account and I was not involved in the patient's management. Otilia NicholasNewyork-Presbyterian Brooklyn Methodist HospitalRahat NAlbin DR: Vidhi JOB#: [id number] CC: WEN
--- NOTE | 2017-06-03 23:06 | General Progress Note ---
Assessment/Plan Status: stable, progressing Assessment/Plan the pt may be discharged not holdable Subjective Date patient seen: Jun 01, 2017 Neurologic/Psychiatric: Reports: anxiety, depressed, emotional problems Allergies: Coded Allergies: No Known Allergies (Unverified , 05/24/17) Objective Height (Feet): 5 Height (Inches): 10.00 Weight (Pounds): 138 General Appearance: no apparent distress, alert Neurologic: alert, oriented x 3, depressed affect Jemima Hayden M.D. Jun 03, 2017 23:06
== END 2017-06-01 15:00 | disposition home or self-care (01) | DRG 917 ==
LOC: EDBD 17:30 → EMR 17:38 → EDBEDREQSVC 20:09 → EDBEDREQ 05-25 19:00 → ICU 05-25 20:21 → 4E 05-29 17:23
PROC: 009U3ZX Drainage of Spinal Canal, Percutaneous Approach, Diagnostic (ICD-10-PCS; principal; 2017-05-25)
PROC: 0BH17EZ Insertion of Endotracheal Airway into Trachea, Via Natural or Artificial Opening (ICD-10-PCS; 2017-05-25)
PROC: 5A1945Z Respiratory Ventilation, 24-96 Consecutive Hours (ICD-10-PCS; 2017-05-25)
DX: T65.891A Toxic effect of other specified substances, accidental (unintentional), initial encounter (principal); G92 Toxic encephalopathy; J96.00 Acute respiratory failure, unspecified whether with hypoxia or hypercapnia; M62.82 Rhabdomyolysis; F15.20 Other stimulant dependence, uncomplicated; E87.2 Acidosis; E87.1 Hypo-osmolality and hyponatremia; G40.89 Other seizures; E87.6 Hypokalemia; S76.111A Strain of right quadriceps muscle, fascia and tendon, initial encounter; X58.XXXA Exposure to other specified factors, initial encounter; E83.51 Hypocalcemia
CPT/HCPCS: 36415; 36600; 70450; 71045; 80048; 80053; 80061; 80069; 80299; 80307; 80329; 81003; 82550; 82803; 82945; 82962; 83605; 83735; 83880; 83930; 83935; 84100; 84157; 84300; 84443; 84478; 84484; 84550; 85007; 85025; 85651; 86039; 86140; 87040; 87070; 87081; 87205; 89051; 93005; 94002; 94003; 94664; 94760; 95819; 97803; 99291; J2250

== ENCOUNTER 2018-08-15 02:57 | Inpatient (IN) | payer OTHER ==
[2018-08-15] VITALS (35 sets, daily range): BP systolic 92–144; BP diastolic 31–74
[~2018-08-15] VITALS: Ht 182.9 cm; Wt 60.8 kg
[~2018-08-15 02:57] MED LIST: KEPPRA500 M4 ORAL; UNOBMED
--- NOTE | 2018-08-15 03:02 | NUR ---
ED Nurse Note: pt brought in by ra26 pt aox0, pt does not respond to voice. pt is restless. per lafd pt was found at this state by friend. unknown trasuma to head or body. pt eyes bilaterly dilated.
--- NOTE | 2018-08-15 03:03 | NUR ---
ED Nurse Note: pt face appears a light purple reddish color, ermd aware.
--- NOTE | 2018-08-15 03:06 | Emergency Room Report ---
History of Present Illness General Chief Complaint: Altered Mental Status Source: EMS Present Illness HPI Patient presents by paramedics found altered by his roommate Patient here is not verbal His pupils appeared dilated He appears confused and lethargic History of present illness is limited secondary to his mental status Patient responding to physical stimuli Otherwise recent medical history is unclear On review of medical records patient was here about one year ago Similar complaints of altered mental status, at that time lumbar puncture and extensive workup was initiated patient was found to be under influence of drugs Allergies: Coded Allergies: No Known Allergies (Unverified , 05/24/17) UNABLE TO ASSESS (Unverified , 08/15/18) Patient History Limited by: medical condition Past Medical History: see triage record Pertinent Family History: unable to obtain Reviewed Nursing Documentation: PMH: Agreed; PSxH: Agreed Nursing Documentation-PMH Past Medical History: Deferred Review of Systems All Other Systems: limited - Other than the ones mentioned in the history of present illness all others are reviewed however they do stay limited due to the patient's mental status Physical Exam Vital Signs Date Time Temp Pulse Resp B/P (MAP) Pulse Ox O2 Delivery O2 Flow Rate FiO2 08/15/18 02:48 98.8 84 22 95 Room Air Sp02 EP Interpretation: reviewed, normal General Appearance: mild distress - Appears mildly agitated Head: atraumatic Eyes: bilateral eye EOMI, bilateral eye other - Pupils dilated bilaterally ENT: normal pharynx, no angioedema Neck: supple Respiratory: lungs clear, no retraction, no accessory muscle use Cardiovascular #1: regular rate, rhythm Gastrointestinal: non tender, soft Musculoskeletal: other - Effusion on the right knee, no obvious focal deficit and upper extremity Neurologic: other - Patient is nonverbal with us however makes moaning sounds to physical stimuli is awake with eyes open, maintaining appropriate respirations Psychiatric: other - Agitated Skin: no rash Procedures Critical Care Time Critical Care Time 90 minutes for multiple re-evaluations, continuous neurological exams, concern for decompensation and cardiopulmonary arrest, not involving/including any positional time Intubation Intubation : Consent: Emergent Intubation Method: orotracheal Tube Size (cm): 8.0 Medications: Etomidate, Succinylcholine Breath Sounds after Intubation: equal Post Intubation Xray: Yes Attempts: One Patient Tolerated: Well Complications: None Medical Decision Making Diagnostic Impression: Primary Impression: Hyponatremia Additional Impressions: Encephalopathy Hypokalemia ER Course Patient presents with acute mental status changes Review of medical records reveals similar presentation with significant hyponatremia On previous presentation there was question of possible pre-workout regimen which might have contributed to the presentation At this time we have no other information or input Patient's drug screen is negative, his pupils are significantly dilated and minimally reactive raising question of other ingestion that is not showing on the drug screen Physician from [place] also contacted us Reports the patient has not had much follow-up ever since the last presentation last year I did provide phone number of the patient's mom so that he may attempt contacting her as [place] Patient continues to remain agitated, required sedation for CT imaging, still not able to obtain emergency imaging and patient continues to be agitated, pulling at IV lines, not verbal and continues to decompensate requiring airway intubation and protection Patient also had several episodes of vomiting previous Hypertonic saline initiated patient admitted to intensive care unit in critical condition Labs Test 08/15/18 03:00 08/15/18 04:30 White Blood Count 8.4 K/UL (4.8-10.8) Red Blood Count 4.31 M/UL (4.70-6.10) Hemoglobin 13.1 G/DL (14.2-18.0) Hematocrit 37.8 % (42.0-52.0) Mean Corpuscular Volume 88 FL (80-99) Mean Corpuscular Hemoglobin 30.3 PG (27.0-31.0) Mean Corpuscular Hemoglobin Concent 34.5 G/DL (32.0-36.0) Red Cell Distribution Width 11.4 % (11.6-14.8) Platelet Count 194 K/UL (150-450) Mean Platelet Volume 8.1 FL (6.5-10.1) Neutrophils (%) (Auto) 78.9 % (45.0-75.0) Lymphocytes (%) (Auto) 11.2 % (20.0-45.0) Monocytes (%) (Auto) 8.0 % (1.0-10.0) Eosinophils (%) (Auto) 0.7 % (0.0-3.0) Basophils (%) (Auto) 1.2 % (0.0-2.0) Urine Color Pale yellow Urine Appearance Clear Urine pH 5 (4.5-8.0) Urine Specific Raven 1.010 (1.005-1.035) Urine Protein Negative (NEGATIVE) Urine Glucose (UA) 2+ (NEGATIVE) Urine Ketones 3+ (NEGATIVE) Urine Blood 3+ (NEGATIVE) Urine Nitrite Negative (NEGATIVE) Urine Bilirubin Negative (NEGATIVE) Urine Urobilinogen Normal MG/DL (0.0-1.0) Urine Leukocyte Esterase Negative (NEGATIVE) Urine RBC 0-2 /HPF (0 - 0) Urine WBC 0-2 /HPF (0 - 0) Urine Squamous Epithelial Cells Occasional /LPF Urine Bacteria Occasional /HPF (NONE) Sodium Level 116 MMOL/L (136-145) Potassium Level 2.8 MMOL/L (3.5-5.1) Chloride Level 81 MMOL/L (98-107) Carbon Dioxide Level 22 MMOL/L (21-32) Anion Gap 14 mmol/L (5-15) Blood Urea Nitrogen 12 mg/dL (7-18) Creatinine 1.3 MG/DL (0.55-1.30) Estimat Glomerular Filtration Rate > 60 mL/min (>60) Glucose Level 187 MG/DL (74-106) Calcium Level 7.5 MG/DL (8.5-10.1) Total Bilirubin 0.4 MG/DL (0.2-1.0) Aspartate Amino Transf (AST/SGOT) 39 U/L (15-37) Alanine Aminotransferase (ALT/SGPT) 30 U/L (12-78) Alkaline Phosphatase 69 U/L (46-116) Total Creatine Kinase 789 U/L (26-308) Total Protein 6.5 G/DL (6.4-8.2) Albumin 3.8 G/DL (3.4-5.0) Globulin 2.7 g/dL Albumin/Globulin Ratio 1.4 (1.0-2.7) Salicylates Level 2.1 ug/mL (2.8-20) Urine Opiates Screen Negative (NEGATIVE) Acetaminophen Level < 2 MCG/ML (10-30) Urine Barbiturates Screen Negative (NEGATIVE) Phencyclidine (PCP) Screen Negative (NEGATIVE) Urine Amphetamines Screen Negative (NEGATIVE) Urine Benzodiazepines Screen Negative (NEGATIVE) Urine Cocaine Screen Negative (NEGATIVE) Urine Marijuana (THC) Screen Negative (NEGATIVE) Serum Alcohol < 3 mg/dL Lactic Acid Level 3.40 mmol/L (0.4-2.0) Rhythm Strip Diag. Results EP Interpretation: yes Rate: 77 Rhythm: NSR, no PVC's, no ectopy Chest X-Ray Diagnostic Results Chest X-Ray Diagnostic Results : Chest X-Ray Ordered: Yes # of Views/Limited/Complete: 1 View Indication: Chest Pain EP Interpretation: Yes Interpretation: no consolidation, no effusion, other - ET tube appropriately positions, bilateral patchy markings Impression: Other - ET tube appropriate, question patchy infiltrarte Electronically Signed by: Sylvia Marshall DO Last Vital Signs Date Time Temp Pulse Resp B/P (MAP) Pulse Ox O2 Delivery O2 Flow Rate FiO2 08/15/18 02:48 98.8 84 22 95 Room Air Status: worsened Disposition: ADMITTED INPATIENT Condition: Critical Sylvia Marshall DO Aug 15, 2018 03:06
[2018-08-15 03:10] LABS: APPEARANCE,URINE CLEAR; BILIRUBIN, URINE NEGATIVE (NEGATIVE); COLOR,URINE PALE YELLOW; GLUCOSE, URINE (UA) 2+ (NEGATIVE); KETONES,URINE 3+ (NEGATIVE); LEUKOCYTE ESTERASE ,URINE NEGATIVE (NEGATIVE); NITRITE,URINE NEGATIVE (NEGATIVE); PH,URINE 5 (4.5-8.0); PROTEIN,URINE NEGATIVE (NEGATIVE); UROBILINOGEN,URINE NORMAL MG/DL (0.0-1.0)
[2018-08-15 03:12] LABS: BASOPHILS % (AUTO) 1.2 % (0.0-2.0); EOSINOPHILS % (AUTO) 0.7 % (0.0-3.0); HEMATOCRIT 37.8 % (42.0-52.0); HEMOGLOBIN 13.1 G/DL (14.2-18.0); LYMPHOCYTES % (AUTO) 11.2 % (20.0-45.0); MEAN CORPUSCULAR VOLUME 88 FL (80-99); NEUTROPHILS % (AUTO) 78.9 % (45.0-75.0); PLATELET COUNT 194 K/UL (150-450); RED BLOOD COUNT 4.31 M/UL (4.70-6.10); RED CELL DISTRIBUTION WIDTH 11.4 % (11.6-14.8); WHITE BLOOD COUNT 8.4 K/UL (4.8-10.8)
[2018-08-15] MEDS ORDERED: LORazepam Inj 2mg/ml 1ml IV ONE (03:15)
--- NOTE | 2018-08-15 03:20 | NUR ---
ED Nurse Note: pt projectile vomitted clear liquid, ermd aware. attempted to palce pt on left lateral. pt would not stay put even with pillow supports. pt was cleaned and gown changed. awaiting futher orders.
[2018-08-15 03:27] LABS: ALANINE AMINOTRANSFERASE 30 U/L (12-78); ALBUMIN 3.8 G/DL (3.4-5.0); ALBUMIN/GLOBULIN RATIO 1.4 (1.0-2.7); ALKALINE PHOSPHATASE 69 U/L (46-116); ANION GAP 14 mmol/L (5-15); ASPARTATE AMINO TRANSFERASE 39 U/L (15-37); BILIRUBIN,TOTAL 0.4 MG/DL (0.2-1.0); BLOOD UREA NITROGEN 12 mg/dL (7-18); CALCIUM 7.5 MG/DL (8.5-10.1); CARBON DIOXIDE 22 MMOL/L (21-32); CHLORIDE 81 MMOL/L (98-107); CREATINE KINASE 789 U/L (26-308); CREATININE 1.3 MG/DL (0.55-1.30); POTASSIUM 2.8 MMOL/L (3.5-5.1)
[2018-08-15 03:28] LABS: SODIUM 116 MMOL/L (136-145)
[2018-08-15] MEDS ORDERED: NaCl 3% 500ml 250 ML IV ONE (04:15)
[2018-08-15] MEDS ORDERED: Etomidate 40mg/20ml Inj IV ONE (05:00)
[2018-08-15] MEDS ORDERED: Succinylcholine 20mg/ml 10ml vial IV ONE (05:00)
--- NOTE | 2018-08-15 05:50 | NUR ---
ED Nurse Note: pt became RASS +1 going on +2 informed ermd. per ermd verbal order draw propofol 10cc. ermd pushed propofol
[2018-08-15] MEDS ORDERED: Propofol 200mg/20ml IV ONE (06:00)
[2018-08-15] MEDS ORDERED: fentaNYL 100 mcg/2 mL IV ONE (06:15)
--- NOTE | 2018-08-15 06:40 | NUR ---
ED Nurse Note: PT WAS TRANSFERRED TO ICU WITH JACINDA RN AND TIFF EMT. RT PRESENT. 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 PT CURRENTLY INTUBATED. SHOWS SIGNS OF AWAKENING. INFORMED RECEIVING NUSRE. SKIN INTACT. ALL BELONINGS SENT WITH PT.
--- NOTE | 2018-08-15 06:45 | NUR ---
NURSE NOTES:Received from ER 28y.o male with Dx Hyponatremia, ,pt was restless Hyde x4 On Diprivan drip at 35mcg/kg/min infusing to Left AC, site atraumatic, RT AC with 3% NACL at 50ml/hr site atraumatic. Pupils 3mm sluggish , Bilateral soft wrist restraints on for safety to avoid self extubation. Orally intubated with size 8.0 ET. vent setting Fi02 80% TV 600 AC 18, Vital signs 106/59 NSR 66., RR 18/min. temp 97.6. Endorsed to Ani RN . Bedside rounds were done. Endorsed to call md for admission orders. Will continue to monitor.
--- NOTE | 2018-08-15 07:01 | NUR ---
RESPIRATORY NOTE: Pt received in ER, ETT: 8.0, @22 lip line, current settings AC 600, 18, 80%, Alarms are set and audible, AMBU bag bedside. Will continue to monitor.
--- NOTE | 2018-08-15 07:27 | NUR ---
HAND-OFF: Report given to Pati VANN.
[2018-08-15] MEDS ORDERED: D5 1/2NS 1,000 ML IV SCH (07:58)
[2018-08-15] MEDS ORDERED: Nitroglycerin Subl 0.4mg tab SL PRN (08:00)
[2018-08-15] MEDS ORDERED: Morphine Sulfate 4mg/ml Inj (IV USE ONLY) IVP PRN (08:00)
[2018-08-15] MEDS ORDERED: Albuterol/Ipratropium 3ml neb HHN PRN (08:00)
--- NOTE | 2018-08-15 08:00 | NUR ---
NURSE NOTES: Received patient agitated. On diprivan 35 mcg/kg/min. . NPO. intubated 8/0/23 cm lipline. AC 18 VT 600 FiO2 80%. Patient opens eyes. 3mm sluggish. L ac 18, R ac 18. D5 1/2 NS at 75 cc/hr. 3% Nacl at 30 cc/hr. lab results reported to MD. Bilateral restraints applied per MD order. Will continue plan of care.
[2018-08-15] MEDS ORDERED: NaCl 3% 500ml 500 ML IV ONE ×3 (08:15→18:20)
[2018-08-15] MEDS: LORazepam Inj 2mg/ml 1ml IV PRN (08:38)
[2018-08-15] MEDS: Heparin 5000 units/ml inj SUBQ SCH ×2 (08:41→21:06)
--- NOTE | 2018-08-15 08:59 | NUR ---
[employer] ARCHITECT 28 Y/O MALE [place] HOME [place] [facility] [place]:ALTERED MENTAL STATUS SI:ENCEPHALOPATHY . HYPONATREMIA . HYPOKALEMIA VS: BP 130/99, P 84, T 98.8, RR 22, SpO2 95 on VENT AC 18, TV 600, FiO2 100 Na 116, K 2.8, RBC 4.31, Hgb 13.1, Hct 37.8, LACTIC ACID 3.40 IS:NS x1L IV LORAZEPAM 1mg IV POTASSIUM CHLORIDE 100ml IVPB ZOFRAN 4mg IVP NS 250ml IV MIDAZOLAM HCI 5mg IVP AMIDATE 20mg QUELICIN 100mgIV DIPRIVAN 100mg IV FENTANYL 100mcg IV ADMITTED TO ICU DC PLAN: RETURN HOME
--- NOTE | 2018-08-15 09:00 | NUR ---
RESPIRATORY NOTE: ABG DRAWN see results. New ventilator settings per MD order: AC 600, 16, 60%. Patient has scant secretions, will continue to monitor.
[2018-08-15 09:34] LABS: CHOLESTEROL 151 MG/DL (< 200); HDL CHOLESTEROL 48 MG/DL (40-60); TRIGLYCERIDES 68 MG/DL (30-150)
--- NOTE | 2018-08-15 09:45 | Consultation ---
Consult Note Consult Note asked to eval for low Na Patient presents by paramedics found altered by his roommate Patient here is not verbal His pupils appeared dilated He appears confused and lethargic History of present illness is limited secondary to his mental status Patient responding to physical stimuli Otherwise recent medical history is unclear On review of medical records patient was here about one year ago Similar complaints of altered mental status, at that time lumbar puncture and extensive workup was initiated patient was found to be under influence of drugs examined data reviewed Assessment/Plan Hyponatremia Encephalopathy Hypokalemia Respiratory failure acute lactic acidosis Sz 3% Saline IV Lasix barron NGT K supplement Mag and Phos supplement Vent support Robbi Newton MD Aug 15, 2018 09:45
--- NOTE | 2018-08-15 09:48 | NUR ---
*-* INSURANCE *-* ALL CLINICALS AND REVIEW FAXED TO: [facility] P:[phone] F:[phone] RE#[id number]
--- NOTE | 2018-08-15 10:00 | NUR ---
Social Service Note Unable to interview patient at this time, orally intubated and no family at bedside. Patient with previous admission for alert level of consciousness. [place]. Roommates information not listed. Will monitor and reassess.
--- NOTE | 2018-08-15 10:00 | NUR ---
NURSE NOTES: Turned and repositioned. Family informed. orders to stop fluids. 3% NaCl continues. order obtained for potassium. Will continue plan of care.
--- NOTE | 2018-08-15 10:06 | Consultation ---
History of Present Illness General Date patient seen: Aug 15, 2018 Chief Complaint: Altered Mental Status Present Illness HPI 28 year old male with hx of drug abuse presented to ER by paramedics with CC of confusion and lethargy. He was found altered by his roommate Patient here is not verbal. His pupils appeared dilated. His Na was 116. He was intubated to protect to his airway and transferred to ICU. Pt is still obtunded and looks comfortable. Allergies: Coded Allergies: No Known Allergies (Unverified , 05/24/17) UNABLE TO ASSESS (Unverified , 08/15/18) Medication History Scheduled Levetiracetam (Keppra), 500 MG ORAL EVERY 12 HOURS, (Reported) Miscellaneous Medications Unable to Obtain Medications (Unable To Obtain Meds), (Reported) Patient History Healthcare decision maker Resuscitation status Advanced Directive on File Past Medical/Surgical History Past Medical/Surgical History: (1) Drug abuse Review of Systems All Other Systems: negative except mentioned in HPI Physical Exam General Appearance: WD/WN Lines, tubes and drains: peripheral HEENT: normocephalic, atraumatic Neck: non-tender, normal alignment Respiratory/Chest: chest wall non-tender, lungs clear Breasts: no masses Cardiovascular/Chest: normal peripheral pulses Abdomen: normal bowel sounds Last 24 Hour Vital Signs Date Time Temp Pulse Resp B/P (MAP) Pulse Ox O2 Delivery O2 Flow Rate FiO2 08/15/18 08:35 83 19 60 08/15/18 08:05 20 107/77 Mechanical Ventilator 80 08/15/18 08:00 Mechanical Ventilator 08/15/18 07:05 20 108/53 Mechanical Ventilator 80 08/15/18 07:00 66 19 80 08/15/18 07:00 80 08/15/18 07:00 18 108/53 Mechanical Ventilator 80 08/15/18 07:00 Mechanical Ventilator 08/15/18 07:00 97.6 64 18 106/59 (75) 99 08/15/18 06:50 20 106/59 Mechanical Ventilator 80 08/15/18 06:45 18 106/59 Mechanical Ventilator 80 08/15/18 06:40 98.9 68 17 144/46 100 Mechanical Ventilator 100.0 80 08/15/18 06:40 98.9 68 17 144/46 100 Mechanical Ventilator 100.0 80 08/15/18 06:35 17 144/46 Mechanical Ventilator 100.0 80 08/15/18 06:20 22 146/67 Mechanical Ventilator 100.0 80 08/15/18 06:16 18 Mechanical Ventilator 100.0 80 08/15/18 06:05 18 146/43 Mechanical Ventilator 100.0 80 08/15/18 06:04 62 18 Mechanical Ventilator 80 08/15/18 06:00 18 146/43 Mechanical Ventilator 100.0 80 08/15/18 05:58 62 18 80 08/15/18 05:45 17 142/49 Mechanical Ventilator 100.0 80 08/15/18 05:30 98.8 73 20 111/74 100 Room Air 08/15/18 05:30 20 111/74 Mechanical Ventilator 100.0 80 08/15/18 05:15 18 144/44 Mechanical Ventilator 6.0 80 08/15/18 05:00 20 144/56 Mechanical Ventilator 80 08/15/18 05:00 20 144/56 Nasal Cannula 2.0 08/15/18 03:12 84 16 Room Air 08/15/18 03:12 98.8 83 13 130/55 95 Room Air 08/15/18 02:48 98.8 84 22 130/99 95 Room Air Intake and Output 08/14/18 08/15/18 18:59 06:59 Intake Total 2116.1 ml Output Total 1 ml Balance 2115.1 ml IV Total 2116.1 ml Output Urine Total 1 ml Laboratory Tests Test 08/15/18 03:00 08/15/18 04:30 08/15/18 08:15 08/15/18 08:35 White Blood Count 8.4 K/UL (4.8-10.8) Red Blood Count 4.31 M/UL (4.70-6.10) L Hemoglobin 13.1 G/DL (14.2-18.0) L Hematocrit 37.8 % (42.0-52.0) L Mean Corpuscular Volume 88 FL (80-99) Mean Corpuscular Hemoglobin 30.3 PG (27.0-31.0) Mean Corpuscular Hemoglobin Concent 34.5 G/DL (32.0-36.0) Red Cell Distribution Width 11.4 % (11.6-14.8) L Platelet Count 194 K/UL (150-450) Mean Platelet Volume 8.1 FL (6.5-10.1) Neutrophils (%) (Auto) 78.9 % (45.0-75.0) H Lymphocytes (%) (Auto) 11.2 % (20.0-45.0) L Monocytes (%) (Auto) 8.0 % (1.0-10.0) Eosinophils (%) (Auto) 0.7 % (0.0-3.0) Basophils (%) (Auto) 1.2 % (0.0-2.0) Urine Color Pale yellow Pending Urine Appearance Clear Pending Urine pH 5 (4.5-8.0) Pending Urine Specific [place] 1.010 (1.005-1.035) Pending Urine Protein Negative (NEGATIVE) Pending Urine Glucose (UA) 2+ (NEGATIVE) H Pending Urine Ketones 3+ (NEGATIVE) H Pending Urine Blood 3+ (NEGATIVE) H Pending Urine Nitrite Negative (NEGATIVE) Pending Urine Bilirubin Negative (NEGATIVE) Pending Urine Urobilinogen Normal MG/DL (0.0-1.0) Pending Urine Leukocyte Esterase Negative (NEGATIVE) Pending Urine RBC 0-2 /HPF (0 - 0) H Pending Urine WBC 0-2 /HPF (0 - 0) Pending Urine Squamous Epithelial Cells Occasional /LPF Pending Urine Bacteria Occasional /HPF (NONE) Pending Sodium Level 116 MMOL/L (136-145) *L Potassium Level 2.8 MMOL/L (3.5-5.1) L Chloride Level 81 MMOL/L (98-107) L Carbon Dioxide Level 22 MMOL/L (21-32) Anion Gap 14 mmol/L (5-15) Blood Urea Nitrogen 12 mg/dL (7-18) Creatinine 1.3 MG/DL (0.55-1.30) Estimat Glomerular Filtration Rate > 60 mL/min (>60) Glucose Level 187 MG/DL (74-106) H Lactic Acid Level 2.90 mmol/L (0.66-2.22) H 3.40 mmol/L (0.4-2.0) H Calcium Level 7.5 MG/DL (8.5-10.1) L Total Bilirubin 0.4 MG/DL (0.2-1.0) Aspartate Amino Transf (AST/SGOT) 39 U/L (15-37) H Alanine Aminotransferase (ALT/SGPT) 30 U/L (12-78) Alkaline Phosphatase 69 U/L (46-116) Total Creatine Kinase 789 U/L (26-308) H Total Protein 6.5 G/DL (6.4-8.2) Albumin 3.8 G/DL (3.4-5.0) Globulin 2.7 g/dL Albumin/Globulin Ratio 1.4 (1.0-2.7) Triglycerides Level 68 MG/DL (30-150) 68 MG/DL (30-150) Salicylates Level 2.1 ug/mL (2.8-20) L Urine Opiates Screen Negative (NEGATIVE) Acetaminophen Level < 2 MCG/ML (10-30) L Urine Barbiturates Screen Negative (NEGATIVE) Phencyclidine (PCP) Screen Negative (NEGATIVE) Urine Amphetamines Screen Negative (NEGATIVE) Urine Benzodiazepines Screen Negative (NEGATIVE) Urine Cocaine Screen Negative (NEGATIVE) Urine Marijuana (THC) Screen Negative (NEGATIVE) Serum Alcohol < 3 mg/dL Urine Osmolality 228 mOsm/kg (429-449) L Urine Random Sodium 39 mmol/L (20-110) Osmolality 243 mOsm/kg (297-317) L Uric Acid 2.9 MG/DL (2.6-7.2) Cholesterol Level 151 MG/DL (< 200) LDL Cholesterol 87 mg/dL (<100) HDL Cholesterol 48 MG/DL (40-60) Cholesterol/HDL Ratio 3.1 (3.3-4.4) L Thyroid Stimulating Hormone (TSH) 1.606 uiU/mL (0.358-3.740) Free Thyroxine 1.36 NG/DL (0.76-1.46) Free Triiodothyronine 2.5 pg/mL (2.3-4.2) Cortisol Pending Test 08/15/18 09:00 Arterial Blood pH 7.424 (7.350-7.450) Arterial Blood Partial Pressure CO2 27.9 mmHg (35.0-45.0) L Arterial Blood Partial Pressure O2 189.7 mmHg (75.0-100.0) H Arterial Blood HCO3 17.9 mmol/L (22.0-26.0) *L Arterial Blood Oxygen Saturation 98.7 % (95-100) Arterial Blood Base Excess -5.2 (-2-2) L Santino Test Positive Microbiology Date/Time Source Procedure Growth Status 08/15/18 04:20 Rectum Received Height (Feet): 6 Weight (Pounds): 165 Medications Current Medications Medications (Trade) Dose Ordered Sig/Olivia Route PRN Reason Start Time Stop Time Status Last Admin Dose Admin Acetaminophen (Tylenol) 650 mg Q4H PRN ORAL Fever 08/15/18 08:00 09/14/18 07:59 Albuterol/ Ipratropium (Albuterol/ Ipratropium) 3 ml Q4H PRN HHN Shortness of Breath 08/15/18 08:00 08/20/18 07:59 Dextrose (Dextrose 50%) 25 ml Q30M PRN IV Hypoglycemia 08/15/18 08:00 09/14/18 07:59 Dextrose (Dextrose 50%) 50 ml Q30M PRN IV Hypoglycemia 08/15/18 08:00 09/14/18 07:59 Fentanyl Citrate 1000 mcg/Sodium Chloride 100 ml @ 0 mls/hr Q24H IV 08/15/18 09:30 08/22/18 09:29 Furosemide (Lasix) 10 mg EVERY 6 HOURS IV 08/15/18 12:00 09/14/18 11:59 Heparin Sodium (Porcine) (Heparin 5000 units/ml) 5,000 units EVERY 12 HOURS SUBQ 08/15/18 09:00 09/14/18 08:59 08/15/18 08:41 Lorazepam (Ativan 2mg/ml 1ml) 2 mg Q2H PRN IV agitation 08/15/18 08:00 08/22/18 07:59 08/15/18 08:38 Morphine Sulfate (Morphine Sulfate) 4 mg Q4H PRN IVP Severe Pain (Pain Scale 7-10) 08/15/18 08:00 08/22/18 07:59 08/15/18 08:39 Nitroglycerin (Ntg) 0.4 mg Q5M PRN SL Prn Chest Pain 08/15/18 08:00 09/14/18 07:59 Ondansetron HCl (Zofran) 4 mg Q6H PRN IVP Nausea & Vomiting 08/15/18 08:00 09/14/18 07:59 Pantoprazole (Protonix) 40 mg EVERY 12 HOURS IVP 08/15/18 21:00 09/14/18 20:59 Propofol 100 ml @ 0 mls/hr Q24H IV 08/15/18 05:00 08/17/18 04:59 08/15/18 05:00 Sodium Chloride 500 ml @ 30 mls/hr ONCE ONCE IV 08/15/18 08:15 08/16/18 00:54 08/15/18 08:43 Sodium Chloride 500 ml @ 30 mls/hr ONCE ONCE IV 08/15/18 11:00 08/16/18 03:39 Assessment/Plan Problem List: (1) Acute metabolic encephalopathy ICD Codes: G93.41 - Metabolic encephalopathy SNOMED: 38688864, 956019699 (2) Acute respiratory failure ICD Codes: J96.00 - Acute respiratory failure, unspecified whether with hypoxia or hypercapnia SNOMED: 33632836 (3) Drug abuse ICD Codes: F19.10 - Other psychoactive substance abuse, uncomplicated SNOMED: 68413322 Respiratory: monitor respiratory rate, adjust FIO2, CXR Cardiac: continue to monitor HR/BP Renal: F/U I&O, keep IV fluid Infectious Disease: add antibiotics Gastrointestinal: hold feedings Endocrine: monitor blood sugar Hematologic: monitor H/H, transfuse if hgb<8.5 Neurologic: PRN Ativan, keep patient comfortable Affect: PRN ativan Prophylaxis: Heparin Notes Reviewed: renal Discussed with: nurses, consultants, disease case manager Dhruv Santiago MD Aug 15, 2018 10:06
[2018-08-15 10:18] LABS: APPEARANCE,URINE CLEAR; BILIRUBIN, URINE NEGATIVE (NEGATIVE); COLOR,URINE PALE YELLOW; GLUCOSE, URINE (UA) 1+ (NEGATIVE); KETONES,URINE 3+ (NEGATIVE); LEUKOCYTE ESTERASE ,URINE NEGATIVE (NEGATIVE); NITRITE,URINE NEGATIVE (NEGATIVE); PH,URINE 6 (4.5-8.0); PROTEIN,URINE NEGATIVE (NEGATIVE); UROBILINOGEN,URINE NORMAL MG/DL (0.0-1.0)
--- NOTE | 2018-08-15 11:21 | Diagnostic Imaging Report ---
Indication: Altered mental status Technique: Continuous helical CT scanning of the head was performed without intravenous contrast material. Axial and coronal 5 mm sections were generated. Radiation dose was minimized using automated exposure control Dose: Total Dose Length Product - DLP 1428.[address] Dose Index - CTDIvol(s) 70.38 mGy. Comparison: none Findings: The ventricular system is normal in size and configuration. There is no shift of midline structures. No abnormal extra-axial fluid collections are noted. There is no evidence of intracerebral bleeding. No other abnormal high or low density areas are noted within the brain. There are bilateral maxillary sinus polyps versus mucus retention cysts. The mastoids are clear. Impression: Normal CT scan of the head without contrast material. Incidental finding of sinus disease This agrees with the preliminary interpretation provided overnight by [facility] teleradiology service. The CT scanner at [facility] is accredited by the [employer] and the scans are performed using protocols designed to limit radiation exposure to as low as reasonably achievable to attain images of sufficient resolution adequate for diagnostic evaluation.
--- NOTE | 2018-08-15 11:35 | Diagnostic Imaging Report ---
Indication: Chest pain Technique: One view of the chest Comparison: 05/27/2017 Findings: There is an endotracheal tube in good position. There is suggestion of mild pulmonary interstitial edema in the left perihilar region. The heart size is normal. Impression: Satisfactory endotracheal intubation Left perihilar mild interstitial edema
--- NOTE | 2018-08-15 12:00 | NUR ---
NURSE NOTES: NGT inserted awaiting for placement confirmation to give meds. Patient on fentanyl at 50. Will continue plan of care.
--- NOTE | 2018-08-15 13:44 | NUR ---
RD ASSESSMENT & RECOMMENDATIONS SEE CARE ACTIVITY FOR COMPLETE ASSESSMENT DAILY ESTIMATED NEEDS: Needs based on Critical care, hyponatremia/ 74kg 22-28 kcals/kg 5745-4259 total kcals 1.2-2 g protein/kg 89-148 g total protein 18-20 mL/kg 9553-1578 total fluid mLs NUTRITION DIAGNOSIS: 1) Swallowing difficulty R/T respiratory status as evidenced by pt is orally intubated, w/ an order for, NGT insertion, NPO at this time. 2) Altered nutrition related lab values R/T clinical status as evidenced by critically low Na (116*), low osmolality (243), low K (2.8), low mag (1.3), elev BG (187) CURRENT TF: NPO PO DIET RECOMMENDATIONS: PHOTOSTAT OPERATOR HELPER eval post extubation ENTERAL NUTRITION RECOMMENDATIONS: Glucerna 1.5 @ 45ml/hr x 24 hrs to provide 1080ml, 1620kcal, 89g prot, 820ml free water * As medically appropriate, initiate Glucerna 1.5 @ 15ml/hr x 6 hrs. * Advance 10ml q 4-6 hrs as tolerated to goal rate. * HOB over 30 degrees/ water flush per MD ADDITIONAL RECOMMENDATIONS: 1) Calibrated bedscale wt for accurate CBW 2) Monitor lytes, replete as needed 3) A1C for eval of glycemic control 4) Monitor BGs, add SSI as needed.
--- NOTE | 2018-08-15 14:00 | NUR ---
NURSE NOTES: VSS turned and repositioned. No changes in patient condition. Remains uncooperative unable to follow commands.will continue plan of care.
--- NOTE | 2018-08-15 14:00 | Diagnostic Imaging Report ---
Indication: Post nasogastric tube placement Technique: Supine view of the upper abdomen Comparison: none Findings: There is a nasogastric tube in place, tip projected level gastric antrum. The visualized bowel gas pattern is unremarkable Impression: Satisfactory nasogastric intubation
--- NOTE | 2018-08-15 16:00 | NUR ---
NURSE NOTES: Patient turned and repositioned. No new orders. Will continue plan of care.
[2018-08-15 16:53] LABS: ANION GAP 11 mmol/L (5-15); BLOOD UREA NITROGEN 8 mg/dL (7-18); CALCIUM 7.7 MG/DL (8.5-10.1); CARBON DIOXIDE 25 MMOL/L (21-32); CHLORIDE 92 MMOL/L (98-107); POTASSIUM 3.5 MMOL/L (3.5-5.1); SODIUM 128 MMOL/L (136-145)
[2018-08-15 16:58] LABS: ALANINE AMINOTRANSFERASE 42 U/L (12-78); ALBUMIN 3.6 G/DL (3.4-5.0); ALBUMIN/GLOBULIN RATIO 1.4 (1.0-2.7); ALKALINE PHOSPHATASE 74 U/L (46-116); ASPARTATE AMINO TRANSFERASE 94 U/L (15-37); BILIRUBIN,TOTAL 0.7 MG/DL (0.2-1.0); PHOSPHORUS 2.5 MG/DL (2.5-4.9)
--- NOTE | 2018-08-15 17:35 | History & Physical ---
History and Physical History & Physicial Cash Morel MD Aug 15, 2018 17:35
--- NOTE | 2018-08-15 18:00 | NUR ---
NURSE NOTES: Tylenol give. New back of 3% NaCl hung. 40 meq potassium administered. Patient had episode of projectile vomitting. green emesis. will continue plan of care.
--- NOTE | 2018-08-15 19:22 | NUR ---
HAND-OFF: Report given to Lana VANN VSS No distresss noted.
--- NOTE | 2018-08-15 19:30 | NUR ---
RESPIRATORY NOTE: Received pt. on 840 vent. Vent settings are: A/C rate of 16, Vt 600, FI02 40%. No respiratory distress noted, pt. Sp02 @ 100%. Ambu bag @ BS. Vent plugged on red outlet. Will continue to monitor pt.
[2018-08-15] MEDS: Metoclopramide 10mg/2ml Inj IVP SCH (19:33)
--- NOTE | 2018-08-15 19:35 | NUR ---
NURSE NOTES: Received report henny Krueger RN. patient in bed resting Temp 100.0 Axillary, continue cooling measure. On Fentanyl drip at 50mcg/hr RASS score -2. NGT intact. NPO. HOB elevated. Bilateral soft wrist restraint intact. Vásquez draining. IV site intact running 3% Nacl at 30cc/hr.ETT to vent 8/23cm lip line AC 16, TV 600 Fi02 60% 0 peep satting 100%. Bed alarm on. bed locked and in low position. Will continue plan of care.
[2018-08-15] MEDS: Pantoprazole Inj IVP SCH (21:00)
--- NOTE | 2018-08-15 22:40 | NUR ---
NURSE NOTES: Paged Dr. Baca per Dr. Morel regarding the skin rashes possible measles, charge nurse aware.
--- NOTE | 2018-08-15 22:51 | NUR ---
NURSE NOTES: patient restless pulling tubing even with restraint, talk therapy provided, repositioned in bed not effective, titrate Fentanyl to 80mcg/hr. Will continue to monitor patient.
--- NOTE | 2018-08-15 22:55 | Consultation ---
History of Present Illness General Date patient seen: Aug 15, 2018 Time patient seen: 11:30 Chief Complaint: Altered Mental Status Reason for Consultation: AMS Present Illness HPI This is a 28-year-old gentleman with unknown past medical history and past surgical history who has presented to the hospital via paramedics after the roommate was found the patient to be altered. The patient was nonverbal, pupil appeared dilated, confused and lethargic. Upon arrival to the ER, the patient had a seizure activity, and subsequently the patient was intubated and admitted to ICU. Shortly after initial evaluation in the emergency, the patient was found to have sodium of 116, potassium was 2.8, chloride was 81, and total CK was 789 and the patient was admitted to ICU with altered mental status and possibly due to seizure and lactic acidosis. Allergies: Coded Allergies: No Known Allergies (Unverified , 05/24/17) UNABLE TO ASSESS (Unverified , 08/15/18) Medication History Scheduled Levetiracetam (Keppra), 500 MG ORAL EVERY 12 HOURS, (Reported) Miscellaneous Medications Unable to Obtain Medications (Unable To Obtain Meds), (Reported) Patient History Limited by: medical condition History Provided By: Medical Record Healthcare decision maker Resuscitation status Full Code Advanced Directive on File Review of Systems ROS Narrative Unable to obtain due to patients MS. Physical Exam General Appearance: moderate distress, agitated, thin Lines, tubes and drains: peripheral HEENT: normocephalic, atraumatic, anicteric, EOMI, supple, no JVD Neck: normal alignment, normal inspection Respiratory/Chest: no respiratory distress, no accessory muscle use Cardiovascular/Chest: normal peripheral pulses Extremities: normal range of motion, non-tender, normal capillary refill, non- pitting Skin Exam: normal pigmentation, warm/dry Neurologic: alert, disoriented, aphasia, other - Able to say his own name but non verbal otherwise. Was extubated today and is in restraints x 4 with restlessness/ agitation. Last 24 Hour Vital Signs Date Time Temp Pulse Resp B/P (MAP) Pulse Ox O2 Delivery O2 Flow Rate FiO2 08/15/18 22:47 16 Endotracheal Tube 40 08/15/18 22:00 16 Endotracheal Tube 60 08/15/18 21:22 75 16 60 08/15/18 21:15 76 16 109/56 (73) 100 08/15/18 21:00 81 16 113/56 (75) 100 08/15/18 21:00 16 Endotracheal Tube 60 08/15/18 20:45 88 15 107/46 (66) 100 08/15/18 20:30 77 16 105/49 (67) 100 08/15/18 20:15 76 16 104/63 (77) 100 08/15/18 20:00 60 08/15/18 20:00 100.7 79 16 96/56 (69) 100 08/15/18 20:00 16 Endotracheal Tube 60 08/15/18 20:00 Mechanical Ventilator 08/15/18 19:53 100.0 08/15/18 19:45 79 16 111/40 (63) 100 08/15/18 19:30 86 16 111/43 (65) 100 08/15/18 19:29 86 16 60 08/15/18 19:00 84 18 104/58 (73) 100 08/15/18 19:00 16 Endotracheal Tube 60 08/15/18 18:00 84 18 113/63 (80) 100 08/15/18 17:00 88 18 110/60 (77) 100 08/15/18 16:44 87 16 60 08/15/18 16:00 60 08/15/18 16:00 98.7 85 18 118/65 (82) 100 08/15/18 16:00 80 08/15/18 16:00 Mechanical Ventilator 08/15/18 15:17 87 16 60 08/15/18 15:00 81 18 122/71 (88) 100 08/15/18 14:00 88 18 120/72 (88) 100 08/15/18 13:15 82 16 60 08/15/18 13:00 86 18 125/70 (88) 100 08/15/18 12:00 98.9 88 18 122/68 (86) 100 08/15/18 12:00 80 08/15/18 12:00 Mechanical Ventilator 08/15/18 12:00 84 08/15/18 11:00 87 18 117/65 (82) 100 08/15/18 10:52 83 17 60 08/15/18 10:35 16 Mechanical Ventilator 60 08/15/18 10:00 90 18 115/68 (84) 100 08/15/18 09:00 94 18 110/65 (80) 100 08/15/18 08:35 83 19 60 08/15/18 08:05 20 107/77 Mechanical Ventilator 80 08/15/18 08:00 Mechanical Ventilator 08/15/18 08:00 98.4 88 18 108/60 (76) 100 08/15/18 08:00 88 08/15/18 07:19 97.6 64 18 106/59 (75) 99 08/15/18 07:05 20 108/53 Mechanical Ventilator 80 08/15/18 07:00 66 19 80 08/15/18 07:00 80 08/15/18 07:00 18 108/53 Mechanical Ventilator 80 08/15/18 07:00 Mechanical Ventilator 08/15/18 07:00 97.6 64 18 106/59 (75) 99 08/15/18 06:50 20 106/59 Mechanical Ventilator 80 08/15/18 06:45 18 106/59 Mechanical Ventilator 80 08/15/18 06:40 98.9 68 17 144/46 100 Mechanical Ventilator 100.0 80 08/15/18 06:40 98.9 68 17 144/46 100 Mechanical Ventilator 100.0 80 08/15/18 06:35 17 144/46 Mechanical Ventilator 100.0 80 08/15/18 06:20 22 146/67 Mechanical Ventilator 100.0 80 08/15/18 06:16 18 Mechanical Ventilator 100.0 80 08/15/18 06:05 18 146/43 Mechanical Ventilator 100.0 80 08/15/18 06:04 62 18 Mechanical Ventilator 80 08/15/18 06:00 18 146/43 Mechanical Ventilator 100.0 80 08/15/18 05:58 62 18 80 08/15/18 05:45 17 142/49 Mechanical Ventilator 100.0 80 08/15/18 05:30 98.8 73 20 111/74 100 Room Air 08/15/18 05:30 20 111/74 Mechanical Ventilator 100.0 80 08/15/18 05:15 18 144/44 Mechanical Ventilator 6.0 80 08/15/18 05:00 20 144/56 Mechanical Ventilator 80 08/15/18 05:00 20 144/56 Nasal Cannula 2.0 08/15/18 03:12 84 16 Room Air 08/15/18 03:12 98.8 83 13 130/55 95 Room Air 08/15/18 02:48 98.8 84 22 130/99 95 Room Air Intake and Output 08/14/18 08/15/18 19:00 07:00 Intake Total 2132.2 ml Output Total 801 ml Balance 1331.2 ml Intake Oral 0 ml IV Total 2132.2 ml Output Urine Total 801 ml Laboratory Tests Test 08/15/18 03:00 08/15/18 04:30 08/15/18 08:15 08/15/18 08:35 White Blood Count 8.4 K/UL (4.8-10.8) Red Blood Count 4.31 M/UL (4.70-6.10) L Hemoglobin 13.1 G/DL (14.2-18.0) L Hematocrit 37.8 % (42.0-52.0) L Mean Corpuscular Volume 88 FL (80-99) Mean Corpuscular Hemoglobin 30.3 PG (27.0-31.0) Mean Corpuscular Hemoglobin Concent 34.5 G/DL (32.0-36.0) Red Cell Distribution Width 11.4 % (11.6-14.8) L Platelet Count 194 K/UL (150-450) Mean Platelet Volume 8.1 FL (6.5-10.1) Neutrophils (%) (Auto) 78.9 % (45.0-75.0) H Lymphocytes (%) (Auto) 11.2 % (20.0-45.0) L Monocytes (%) (Auto) 8.0 % (1.0-10.0) Eosinophils (%) (Auto) 0.7 % (0.0-3.0) Basophils (%) (Auto) 1.2 % (0.0-2.0) Urine Color Pale yellow Pale yellow Urine Appearance Clear Clear Urine pH 5 (4.5-8.0) 6 (4.5-8.0) Urine Specific [place] 1.010 (1.005-1.035) 1.015 (1.005-1.035) Urine Protein Negative (NEGATIVE) Negative (NEGATIVE) Urine Glucose (UA) 2+ (NEGATIVE) H 1+ (NEGATIVE) H Urine Ketones 3+ (NEGATIVE) H 3+ (NEGATIVE) H Urine Blood 3+ (NEGATIVE) H 3+ (NEGATIVE) H Urine Nitrite Negative (NEGATIVE) Negative (NEGATIVE) Urine Bilirubin Negative (NEGATIVE) Negative (NEGATIVE) Urine Urobilinogen Normal MG/DL (0.0-1.0) Normal MG/DL (0.0-1.0) Urine Leukocyte Esterase Negative (NEGATIVE) Negative (NEGATIVE) Urine RBC 0-2 /HPF (0 - 0) H 2-4 /HPF (0 - 0) H Urine WBC 0-2 /HPF (0 - 0) 0-2 /HPF (0 - 0) Urine Squamous Epithelial Cells Occasional /LPF Occasional /LPF Urine Bacteria Occasional /HPF (NONE) Occasional /HPF (NONE) Sodium Level 116 MMOL/L (136-145) *L Potassium Level 2.8 MMOL/L (3.5-5.1) L Chloride Level 81 MMOL/L (98-107) L Carbon Dioxide Level 22 MMOL/L (21-32) Anion Gap 14 mmol/L (5-15) Blood Urea Nitrogen 12 mg/dL (7-18) Creatinine 1.3 MG/DL (0.55-1.30) Estimat Glomerular Filtration Rate > 60 mL/min (>60) Glucose Level 187 MG/DL (74-106) H Lactic Acid Level 2.90 mmol/L (0.66-2.22) H 3.40 mmol/L (0.4-2.0) H Calcium Level 7.5 MG/DL (8.5-10.1) L Total Bilirubin 0.4 MG/DL (0.2-1.0) Aspartate Amino Transf (AST/SGOT) 39 U/L (15-37) H Alanine Aminotransferase (ALT/SGPT) 30 U/L (12-78) Alkaline Phosphatase 69 U/L (46-116) Total Creatine Kinase 789 U/L (26-308) H Total Protein 6.5 G/DL (6.4-8.2) Albumin 3.8 G/DL (3.4-5.0) Globulin 2.7 g/dL Albumin/Globulin Ratio 1.4 (1.0-2.7) Triglycerides Level 68 MG/DL (30-150) 68 MG/DL (30-150) Salicylates Level 2.1 ug/mL (2.8-20) L Urine Opiates Screen Negative (NEGATIVE) Acetaminophen Level < 2 MCG/ML (10-30) L Urine Barbiturates Screen Negative (NEGATIVE) Phencyclidine (PCP) Screen Negative (NEGATIVE) Urine Amphetamines Screen Negative (NEGATIVE) Urine Benzodiazepines Screen Negative (NEGATIVE) Urine Cocaine Screen Negative (NEGATIVE) Urine Marijuana (THC) Screen Negative (NEGATIVE) Serum Alcohol < 3 mg/dL Urine Osmolality 228 mOsm/kg (429-449) L Urine Random Sodium 39 mmol/L (20-110) Osmolality 243 mOsm/kg (297-317) L Uric Acid 2.9 MG/DL (2.6-7.2) Phosphorus Level 3.1 MG/DL (2.5-4.9) Magnesium Level 1.3 MG/DL (1.5-2.4) L Cholesterol Level 151 MG/DL (< 200) LDL Cholesterol 87 mg/dL (<100) HDL Cholesterol 48 MG/DL (40-60) Cholesterol/HDL Ratio 3.1 (3.3-4.4) L Thyroid Stimulating Hormone (TSH) 1.606 uiU/mL (0.358-3.740) Free Thyroxine 1.36 NG/DL (0.76-1.46) Free Triiodothyronine 2.5 pg/mL (2.3-4.2) Cortisol Pending Test 08/15/18 09:00 08/15/18 16:20 Arterial Blood pH 7.424 (7.350-7.450) Arterial Blood Partial Pressure CO2 27.9 mmHg (35.0-45.0) L Arterial Blood Partial Pressure O2 189.7 mmHg (75.0-100.0) H Arterial Blood HCO3 17.9 mmol/L (22.0-26.0) *L Arterial Blood Oxygen Saturation 98.7 % (95-100) Arterial Blood Base Excess -5.2 (-2-2) L Santino Test Positive Sodium Level 128 MMOL/L (136-145) #L Potassium Level 3.5 MMOL/L (3.5-5.1) Chloride Level 92 MMOL/L (98-107) L Carbon Dioxide Level 25 MMOL/L (21-32) Anion Gap 11 mmol/L (5-15) Blood Urea Nitrogen 8 mg/dL (7-18) Creatinine 1.0 MG/DL (0.55-1.30) Estimat Glomerular Filtration Rate > 60 mL/min (>60) Glucose Level 103 MG/DL (74-106) Calcium Level 7.7 MG/DL (8.5-10.1) L Phosphorus Level 2.5 MG/DL (2.5-4.9) Magnesium Level 1.4 MG/DL (1.8-2.4) L Total Bilirubin 0.7 MG/DL (0.2-1.0) Aspartate Amino Transf (AST/SGOT) 94 U/L (15-37) H Alanine Aminotransferase (ALT/SGPT) 42 U/L (12-78) Alkaline Phosphatase 74 U/L (46-116) Total Protein 6.1 G/DL (6.4-8.2) L Albumin 3.6 G/DL (3.4-5.0) Globulin 2.5 g/dL Albumin/Globulin Ratio 1.4 (1.0-2.7) Microbiology Date/Time Source Procedure Growth Status 08/15/18 04:20 Rectum Received Height (Feet): 6 Height (Inches): 0.00 Weight (Pounds): 165 Medications Current Medications Medications (Trade) Dose Ordered Sig/Olivia Route PRN Reason Start Time Stop Time Status Last Admin Dose Admin Acetaminophen (Tylenol) 650 mg Q4H PRN ORAL Fever 08/15/18 08:00 09/14/18 07:59 08/15/18 19:23 Albuterol/ Ipratropium (Albuterol/ Ipratropium) 3 ml Q4H PRN HHN Shortness of Breath 08/15/18 08:00 08/20/18 07:59 Dextrose (Dextrose 50%) 25 ml Q30M PRN IV Hypoglycemia 08/15/18 08:00 09/14/18 07:59 Dextrose (Dextrose 50%) 50 ml Q30M PRN IV Hypoglycemia 08/15/18 08:00 09/14/18 07:59 Fentanyl Citrate 1000 mcg/Sodium Chloride 100 ml @ 0 mls/hr Q24H IV 08/15/18 09:30 08/22/18 09:29 08/15/18 22:47 Furosemide (Lasix) 10 mg EVERY 6 HOURS IV 08/15/18 12:00 09/14/18 11:59 08/15/18 18:03 Heparin Sodium (Porcine) (Heparin 5000 units/ml) 5,000 units EVERY 12 HOURS SUBQ 08/15/18 09:00 09/14/18 08:59 08/15/18 21:06 Lorazepam (Ativan 2mg/ml 1ml) 2 mg Q2H PRN IV agitation 08/15/18 08:00 08/22/18 07:59 08/15/18 08:38 Metoclopramide HCl (Reglan) 10 mg Q6HR IVP 08/15/18 19:00 09/14/18 18:59 08/15/18 19:33 Morphine Sulfate (Morphine Sulfate) 4 mg Q4H PRN IVP Severe Pain (Pain Scale 7-10) 08/15/18 08:00 08/22/18 07:59 08/15/18 08:39 Ondansetron HCl (Zofran) 4 mg Q6H PRN IVP Nausea & Vomiting 08/15/18 08:00 09/14/18 07:59 08/15/18 19:33 Pantoprazole (Protonix) 40 mg EVERY 12 HOURS IVP 08/15/18 21:00 09/14/18 20:59 08/15/18 21:00 Potassium Chloride (K-Dur) 40 meq Q6HR NG 08/15/18 12:00 09/14/18 11:59 08/15/18 18:04 Sodium Chloride 500 ml @ 30 mls/hr ONCE ONCE IV 08/15/18 08:15 08/16/18 00:54 08/15/18 08:43 Sodium Chloride 500 ml @ 30 mls/hr ONCE ONCE IV 08/15/18 11:00 08/16/18 03:39 Sodium Chloride 500 ml @ 30 mls/hr ONCE ONCE IV 08/15/18 18:20 08/16/18 10:59 08/15/18 18:04 Assessment/Plan Problem List: (1) Hyponatremia Assessment & Plan: Slowly correct Na to 135-145 with IVF ICD Codes: E87.1 - Hypo-osmolality and hyponatremia SNOMED: 41220743 (2) Hypokalemia Assessment & Plan: Correct/ replete as appropriate. ICD Codes: E87.6 - Hypokalemia SNOMED: 25939272 (3) Acute respiratory failure ICD Codes: J96.00 - Acute respiratory failure, unspecified whether with hypoxia or hypercapnia SNOMED: 24550849 (4) Acute metabolic encephalopathy Assessment & Plan: AMS secondary to hyponatremia/ hypokalemia/ rhabdomyolysis IVF with correction of lytes Q4 hour neuro checks Maintain Normothermia Maintain normoglycemia with ISS as needed. CT Brain NAD MRI Brain w/wo contrast when able to safely scan patient and then LP. ICD Codes: G93.41 - Metabolic encephalopathy SNOMED: 40062797, 753511634 Assessment/Plan Q2 Neuro Obs Correct Na 135-145 Monitor lytes, BUN/Cr, LFTs ICU Care Avoid use of benzodiazapenes, anticholinergics or narcotics MRI Brain w/wo contrast then Lumbar Puncture if inconclusive. Kiana Shaikh N.P. Aug 15, 2018 22:55
--- NOTE | 2018-08-15 23:06 | NUR ---
NURSE NOTES: Dr Bello talent acquisition sourcer for Dr Baca called back and made aware of patient skin redness, rashes on face, neck upper body and shoulders with Temp 100.5 at 2100, rechecked Temp 98.8 with cooling measure possible measles per Dr. Morel.Will place patient on airborne and contact isolation per Dr. Morel noted and carried out. Charge nurse aware. will call [employer] to change patient room.
[2018-08-15] MEDS ORDERED: Gadavist 7.5mMol/7.5ml vial IV PRN (23:15)
[2018-08-16] VITALS (33 sets, daily range): BP systolic 11–126; BP diastolic 30–74
[2018-08-16] MEDS: Metoclopramide 10mg/2ml Inj IVP SCH ×4 (01:04→17:32)
[2018-08-16] MEDS ORDERED: fentaNYL 100 mcg/2 mL IV ONE (01:22)
--- NOTE | 2018-08-16 01:30 | History and Physical Report ---
DATE OF ADMISSION: 08/15/2018 CHIEF COMPLAINT: Altered mental status. HISTORY OF PRESENT ILLNESS: This is a 28-year-old gentleman with unknown past medical history and past surgical history who has presented to the hospital via paramedics after the roommate was found the patient to be altered. The patient was nonverbal, pupil appeared dilated, confused and lethargic. Upon arrival to the ER, the patient had a seizure activity, and subsequently the patient was intubated and admitted to ICU. Shortly after initial evaluation in the emergency, the patient was found to have sodium of 116, potassium was 2.8, chloride was 81, and total CK was 789 and the patient was admitted to ICU with altered mental status and possibly due to seizure and lactic acidosis. PAST MEDICAL HISTORY AND PAST SURGICAL HISTORY: Unknown. MEDICATIONS: At home is unknown. ALLERGIES: No known drug allergies. SOCIAL HISTORY: Unknown. FAMILY HISTORY: Noncontributory. REVIEW OF SYSTEMS: Unknown. PHYSICAL EXAMINATION: VITAL SIGNS: On admission from the ER, temperature 98.8, pulse of 84, respirations 22, and blood pressure was noted to be 110/60. GENERAL: The patient is unresponsive, cannot follow commands and intubated. HEAD AND NECK: Pupils are equal and reactive to light. Anicteric. ET tube in the mouth. NECK: Supple. No JVD. LUNGS: Good air entry. No wheezes or rhonchi. Mechanical breath sounds. HEART: S1, S2. Regular rhythm. No gallops. ABDOMEN: Soft, nondistended, and nontender. Positive bowel sounds. EXTREMITIES: No cyanosis, clubbing, or edema. NEUROLOGIC: Limited secondary to the patient's status. SKIN: Diffuse macular rashes in the face area, trunk area, but no extension to the extremities. LABORATORY AND DIAGNOSTIC DATA: On admission from the ER, sodium 116, potassium 2.8, chloride 81, bicarbonate 22, BUN 12, creatinine 1.3, glucose level is 187, calcium with 7.5, and total bilirubin of 0.4. AST of 39, ALT of 30, alkaline phosphatase 69, total CK of 789. Lactic acid is 2.90 and second one is at 3.40. Urine serum osmolality is 243. TSH is 1.606. WBC of 8.4, hemoglobin 13, hematocrit 37, platelet is 194,000. ABG, pH of 7.42, pCO2 of 27, pO2 of 189, and bicarbonate is 17.9. Urinalysis, +2 glucose, +3 ketone, +3 blood. Urine osmolality is 228. Urine drug screen is negative for a salicylate, negative for acetaminophen, negative for alcohol, and negative for drug screening. The patient had a CT of the head was done, normal. CT of the head without contrast. Chest x-ray was done in the ER, satisfactory ET tube, and left perihilar and mid interstitial edema. There is an endotracheal tube in good position. Abdominal x-ray, satisfactory nasogastric intubation. ASSESSMENT: 1. Altered mental status, possible due to the toxic metabolic encephalopathy versus seizure. 2. Diffuse macular rashes, possible infectious etiologies such as measles. 3. Severe hyponatremia. 4. Hypokalemia. 5. Lactic acidosis. 6. Possible seizure activity. 7. Acute respiratory failure. PLAN: 1. Admit the patient to ICU. 2. We will follow up with Dr. Santiago from Pulmonary Critical Care and Dr. Newton from Nephrology. 3. At this time, Code Status is Full Code. 4. DVT prophylaxis. 5. Heparin subcutaneous. 6. We will follow up with the cultures and monitor for seizure activity. 7. Neuro check and Neurology consultation with Dr. Kenan Pagan. Cash Morel M.D. DR: NICKOLAS JOB#: [id number] CC:
--- NOTE | 2018-08-16 01:35 | NUR ---
NURSE NOTES: spoke with Doris Hernandez pharmacist regarding the Fentanyl drip accidentally pulled out tubing from the bag while giving patient bed bath and patient became restless, Fentanyl was wasted on the floor.charge nurse aware.
[2018-08-16] MEDS ORDERED: NS IV SCH ×4 (01:45)
[2018-08-16] MEDS ORDERED: FENTANYL CITRATE IV SCH ×4 (01:45)
[2018-08-16] MEDS: LORazepam Inj 2mg/ml 1ml IV PRN ×8 (03:15→23:02)
--- NOTE | 2018-08-16 03:22 | NUR ---
NURSE NOTES: Patient with episode of restlessness, agitation trying to get up and pullout tubing, hitting staff reality orientation provided, repositioned not effective. ATIVAN IVP PRN given effective. will continue to monitor patient. Airborne and contact isolation maintained and observed. Will continue to monitor patient.
--- NOTE | 2018-08-16 05:30 | NUR ---
NURSE NOTES: Patient in bed resting no s/s of acute distress noted. Frequent visual checks continued.Will continue plan of care.
[2018-08-16 06:00] LABS: INR 1.1 (0.9-1.1)
[2018-08-16 06:09] LABS: BASOPHILS % (AUTO) 0.3 % (0.0-2.0); HEMATOCRIT 40.7 % (42.0-52.0); HEMOGLOBIN 13.8 G/DL (14.2-18.0); MEAN CORPUSCULAR VOLUME 88 FL (80-99); MONOCYTES % (AUTO) 11.2 % (1.0-10.0); NEUTROPHILS % (AUTO) 81.5 % (45.0-75.0); PLATELET COUNT 183 K/UL (150-450); RED BLOOD COUNT 4.62 M/UL (4.70-6.10); RED CELL DISTRIBUTION WIDTH 11.5 % (11.6-14.8); WHITE BLOOD COUNT 10.4 K/UL (4.8-10.8)
--- NOTE | 2018-08-16 06:31 | NUR ---
RESPIRATORY NOTE: Received pt on ordered vent settings. Pt endotracheal tube is patent and secured. Suctioned pt prn. Vent alarms are on and audible. Vent is plugged into red outlet. Will monitor pt progress.
[2018-08-16 06:32] LABS: ALANINE AMINOTRANSFERASE 43 U/L (12-78); ALBUMIN 3.6 G/DL (3.4-5.0); ALBUMIN/GLOBULIN RATIO 1.2 (1.0-2.7); ALKALINE PHOSPHATASE 69 U/L (46-116); ANION GAP 12 mmol/L (5-15); ASPARTATE AMINO TRANSFERASE 90 U/L (15-37); BILIRUBIN,TOTAL 0.8 MG/DL (0.2-1.0); BLOOD UREA NITROGEN 7 mg/dL (7-18); CARBON DIOXIDE 26 MMOL/L (21-32); CHLORIDE 97 MMOL/L (98-107); CREATININE 1.1 MG/DL (0.55-1.30); LACTATE DEHYDROGENASE 252 U/L (81-234); PHOSPHORUS 2.1 MG/DL (2.5-4.9); POTASSIUM 3.4 MMOL/L (3.5-5.1); SODIUM 135 MMOL/L (136-145)
--- NOTE | 2018-08-16 06:37 | NUR ---
NURSE NOTES: Patient with episode of restlessness, agitation trying to get up and pullout tubing, reality orientation provided, repositioned not effective. ATIVAN IVP PRN given effective. will continue to monitor patient. Titrate Fentanyl drip to 100mcg/hr. Will continue to monitor patient.
[2018-08-16 06:39] LABS: CALCIUM 7.9 MG/DL (8.5-10.1)
--- NOTE | 2018-08-16 07:30 | NUR ---
HAND-OFF: Report given to Lico VANN. Picked up the Fentanyl drip and fentanyl box from the pharmacy , endorsed to EDWAR Barfield. Patient sleeping at this time. Airborne and contact isolation maintained and observed.
--- NOTE | 2018-08-16 07:40 | NUR ---
NURSE NOTES: Report received from Lana VANN. Pt alert and oriented, x 1-2, confused and agitated at times. Pt connected to bus driver/monitor, SR. Pt orally intubated ETT 8, 23 cm at the lip line, AC 16, TV 600, 40% fiO2, 0 PEEP. NGT noted and clamped. Pt kept NPO at this time. Vásquez noted and draining clear yellow urine to gravity. LAC 18 G with fentanyl running at 10ml/hr and RAC 18 G with hypernatremic solution at 30 cc/hr. Bilateral soft wrist restraints noted and intact. Safety measures in place with bed locked in lowest position, side rails x3 up and bed alarm on. Will continue to monitor and continue plan of care.
[2018-08-16] MEDS: Pantoprazole Inj IVP SCH ×2 (08:32→20:16)
[2018-08-16] MEDS: Heparin 5000 units/ml inj SUBQ SCH ×2 (08:34→20:17)
--- NOTE | 2018-08-16 09:30 | NUR ---
NURSE NOTES: Turned and repositioned pt. VSS. No acute distress.
--- NOTE | 2018-08-16 10:11 | Pulmonolgy Critical Care Note ---
Critical Care - Asmt/Plan Problems: (1) Acute metabolic encephalopathy (2) Drug abuse (3) Hypokalemia Respiratory: monitor respiratory rate, adjust FIO2, CXR Cardiac: continue to monitor HR/BP Renal: F/U I&O Infectious Disease: check cultures Gastrointestinal: continue feedings/current rate Endocrine: check TSH Hematologic: monitor H/H, transfuse if hgb<8.5 Neurologic: PRN Morphine, keep patient comfortable Time Spent (Minutes): 40 Notes Reviewed: cardio, renal Discussed with: nurses, consultants, case management associatemanager interventional - Objective Last 24 Hour Vital Signs Date Time Temp Pulse Resp B/P (MAP) Pulse Ox O2 Delivery O2 Flow Rate FiO2 08/16/18 09:00 84 16 101/48 (65) 100 08/16/18 08:32 85 16 60 08/16/18 08:00 40 08/16/18 08:00 Mechanical Ventilator 08/16/18 08:00 99.0 85 16 90/46 (61) 100 08/16/18 08:00 85 08/16/18 07:43 16 Mechanical Ventilator 08/16/18 07:15 85 16 100 08/16/18 07:00 84 16 99/47 (64) 100 08/16/18 06:31 84 16 60 08/16/18 06:30 78 16 106/53 (70) 100 08/16/18 06:00 78 16 116/51 (72) 100 08/16/18 05:30 82 14 115/52 (73) 100 08/16/18 05:07 86 16 60 08/16/18 05:00 82 16 116/62 (80) 100 08/16/18 04:30 81 16 116/67 (83) 100 08/16/18 04:00 40 08/16/18 04:00 Mechanical Ventilator 08/16/18 04:00 98.8 88 16 111/51 (71) 100 08/16/18 04:00 81 08/16/18 03:45 88 16 115/56 (75) 100 08/16/18 02:36 99.0 08/16/18 02:30 70 16 60 08/16/18 02:15 105 20 109/39 (62) 100 08/16/18 02:00 71 16 109/39 (62) 100 08/16/18 02:00 17 Endotracheal Tube 40 08/16/18 01:45 70 16 110/53 (72) 100 08/16/18 01:30 73 17 112/55 (74) 100 08/16/18 01:15 70 16 113/63 (80) 100 08/16/18 01:00 16 Endotracheal Tube 40 08/16/18 01:00 74 17 119/60 (79) 100 08/16/18 00:49 72 16 60 08/16/18 00:45 71 17 126/67 (86) 100 08/16/18 00:30 91 17 93/65 (74) 100 08/16/18 00:00 99.0 73 16 95/30 (51) 100 08/16/18 00:00 Mechanical Ventilator 08/16/18 00:00 16 Endotracheal Tube 40 08/16/18 00:00 76 08/15/18 23:45 72 16 96/31 (52) 100 08/15/18 23:30 71 16 97/34 (55) 100 08/15/18 23:17 98.8 08/15/18 23:15 71 16 97/36 (56) 100 08/15/18 23:00 74 17 100/38 (58) 100 08/15/18 23:00 16 Endotracheal Tube 40 08/15/18 22:54 81 16 60 08/15/18 22:47 16 Endotracheal Tube 40 08/15/18 22:46 16 Endotracheal Tube 40 08/15/18 22:45 75 16 92/43 (59) 100 08/15/18 22:30 75 16 95/33 (53) 100 08/15/18 22:15 75 16 94/40 (58) 100 08/15/18 22:00 16 Endotracheal Tube 60 08/15/18 22:00 75 16 98/42 (60) 100 08/15/18 21:45 104 22 109/43 (65) 100 08/15/18 21:30 75 16 111/57 (75) 100 08/15/18 21:22 75 16 60 08/15/18 21:15 76 16 109/56 (73) 100 08/15/18 21:00 81 16 113/56 (75) 100 08/15/18 21:00 16 Endotracheal Tube 60 08/15/18 20:45 88 15 107/46 (66) 100 08/15/18 20:30 77 16 105/49 (67) 100 08/15/18 20:15 76 16 104/63 (77) 100 08/15/18 20:00 60 08/15/18 20:00 100.7 79 16 96/56 (69) 100 08/15/18 20:00 73 08/15/18 20:00 16 Endotracheal Tube 60 08/15/18 20:00 Mechanical Ventilator 08/15/18 19:53 100.0 08/15/18 19:45 79 16 111/40 (63) 100 08/15/18 19:30 86 16 111/43 (65) 100 08/15/18 19:29 86 16 60 08/15/18 19:00 84 18 104/58 (73) 100 08/15/18 19:00 16 Endotracheal Tube 60 08/15/18 18:00 84 18 113/63 (80) 100 08/15/18 17:00 88 18 110/60 (77) 100 08/15/18 16:44 87 16 60 08/15/18 16:00 60 08/15/18 16:00 98.7 85 18 118/65 (82) 100 08/15/18 16:00 80 08/15/18 16:00 Mechanical Ventilator 08/15/18 15:17 87 16 60 08/15/18 15:00 81 18 122/71 (88) 100 08/15/18 14:00 88 18 120/72 (88) 100 08/15/18 13:15 82 16 60 08/15/18 13:00 86 18 125/70 (88) 100 08/15/18 12:00 98.9 88 18 122/68 (86) 100 08/15/18 12:00 80 08/15/18 12:00 Mechanical Ventilator 08/15/18 12:00 84 08/15/18 11:00 87 18 117/65 (82) 100 08/15/18 10:52 83 17 60 08/15/18 10:35 16 Mechanical Ventilator 60 Status: awake Condition: critical Neck: full ROM Heart: HR/BP unstable Abdomen: soft, active bowel sounds Extremities: no C/C/E Decubiti: location Micro: Microbiology Date/Time Source Procedure Growth Status 08/15/18 04:20 Rectum Received Critical Care - Subjective ROS Limited/Unobtainable: Yes ICU Day: 2 EKG Rhythm: Sinus Rhythm FI02: 60 Vent Support Breath Rate: 16 Vent Support Mode: AC Vent Tidal Volume: 600 PIP: 20 I&O: Intake and Output 08/15/18 08/16/18 18:59 06:59 Intake Total 251.1 ml 455.73 ml Output Total 2600 ml 4075 ml Balance -2348.9 ml -3619.27 ml Intake Oral 0 ml IV Total 251.1 ml 455.73 ml Output Urine Total 2600 ml 4075 ml ET-Tube: 8.0 ET Position: 22 Labs: Laboratory Tests Test 08/15/18 16:20 08/16/18 05:10 08/16/18 05:30 Sodium Level 128 MMOL/L (136-145) #L 135 MMOL/L (136-145) L Potassium Level 3.5 MMOL/L (3.5-5.1) 3.4 MMOL/L (3.5-5.1) L Chloride Level 92 MMOL/L (98-107) L 97 MMOL/L (98-107) L Carbon Dioxide Level 25 MMOL/L (21-32) 26 MMOL/L (21-32) Anion Gap 11 mmol/L (5-15) 12 mmol/L (5-15) Blood Urea Nitrogen 8 mg/dL (7-18) 7 mg/dL (7-18) Creatinine 1.0 MG/DL (0.55-1.30) 1.1 MG/DL (0.55-1.30) Estimat Glomerular Filtration Rate > 60 mL/min (>60) > 60 mL/min (>60) Glucose Level 103 MG/DL (74-106) 110 MG/DL (74-106) H Calcium Level 7.7 MG/DL (8.5-10.1) L 8.0 MG/DL (8.5-10.1) L Phosphorus Level 2.5 MG/DL (2.5-4.9) 2.1 MG/DL (2.5-4.9) L Magnesium Level 1.4 MG/DL (1.8-2.4) L 1.7 MG/DL (1.8-2.4) L Total Bilirubin 0.7 MG/DL (0.2-1.0) 0.8 MG/DL (0.2-1.0) Aspartate Amino Transf (AST/SGOT) 94 U/L (15-37) H 90 U/L (15-37) H Alanine Aminotransferase (ALT/SGPT) 42 U/L (12-78) 43 U/L (12-78) Alkaline Phosphatase 74 U/L (46-116) 69 U/L (46-116) Total Protein 6.1 G/DL (6.4-8.2) L 6.6 G/DL (6.4-8.2) Albumin 3.6 G/DL (3.4-5.0) 3.6 G/DL (3.4-5.0) Globulin 2.5 g/dL 3.0 g/dL Albumin/Globulin Ratio 1.4 (1.0-2.7) 1.2 (1.0-2.7) White Blood Count 10.4 K/UL (4.8-10.8) Red Blood Count 4.62 M/UL (4.70-6.10) L Hemoglobin 13.8 G/DL (14.2-18.0) L Hematocrit 40.7 % (42.0-52.0) L Mean Corpuscular Volume 88 FL (80-99) Mean Corpuscular Hemoglobin 30.0 PG (27.0-31.0) Mean Corpuscular Hemoglobin Concent 34.0 G/DL (32.0-36.0) Red Cell Distribution Width 11.5 % (11.6-14.8) L Platelet Count 183 K/UL (150-450) Mean Platelet Volume 7.6 FL (6.5-10.1) Neutrophils (%) (Auto) 81.5 % (45.0-75.0) H Lymphocytes (%) (Auto) 7.0 % (20.0-45.0) L Monocytes (%) (Auto) 11.2 % (1.0-10.0) H Eosinophils (%) (Auto) 0.0 % (0.0-3.0) Basophils (%) (Auto) 0.3 % (0.0-2.0) Prothrombin Time 11.2 SEC (9.30-11.50) Prothromb Time International Ratio 1.1 (0.9-1.1) Activated Partial Thromboplast Time 29 SEC (23-33) Osmolality 286 mOsm/kg (297-317) L Uric Acid 2.6 MG/DL (2.6-7.2) Ionized Calcium (Measured) 0.99 mmol/L (1.10-1.35) L Lactate Dehydrogenase 252 U/L (81-234) H Folate 16.9 NG/ML (8.6-58.9) Dhruv Santiago MD Aug 16, 2018 10:11
[2018-08-16] MEDS ORDERED: Potassium Chloride 40 MEQ in Sodium Chloride 550 ML IVPB ONE (10:15)
[2018-08-16] MEDS ORDERED: Haloperidol 5mg/ml Inj IVPB PRN (10:15)
--- NOTE | 2018-08-16 10:53 | NUR ---
NURSE NOTES: Dr Santiago here to see pt. said we can extubate after we start Haldol prn. No acute distress. Will continue to monitor.
[2018-08-16] MEDS ORDERED: Sodium Chloride for KCL Premix X 4hrs IV SCH (11:00)
--- NOTE | 2018-08-16 11:48 | Consultation ---
History of Present Illness General Date patient seen: Aug 16, 2018 Chief Complaint: Altered Mental Status Reason for Consultation: AMS Present Illness HPI 28 y/o M with hx of drug abuse presented to ED by EMS with confusion, lethargy. He was found altered by his roommate. Upon admission patient non-verbal, pupils dilated, hyponatremic to 116 and he required intubation for airway protection and was admitted to the ICU. Had Seizure activity in the ED. Patient also was found to have macular papular rash in face and torso but o extremities and there was suspicion for Measles. Placed on airborne isolation. Of note, about 1 year ago admitted here for altered mental status with extensive workup including LP negative and he was thought to be under influence of drugs Hx is limited as roommates are not present and only contact info is from her mom but has an international phone number. Allergies: Coded Allergies: No Known Allergies (Unverified , 05/24/17) UNABLE TO ASSESS (Unverified , 08/15/18) Medication History Scheduled Levetiracetam (Keppra), 500 MG ORAL EVERY 12 HOURS, (Reported) Miscellaneous Medications Unable to Obtain Medications (Unable To Obtain Meds), (Reported) Patient History Healthcare decision maker Resuscitation status Full Code Advanced Directive on File Patient History Narrative Pmhx: as above Shx: reviewed Fhx: non contributory Review of Systems ROS Narrative unable to obtain Physical Exam Physical Exam Narrative GENERAL: The patient is unresponsive, cannot follow commands and intubated. HEAD AND NECK: Pupils are equal and reactive to light. Anicteric. ET tube in the mouth. NECK: Supple. No JVD. LUNGS: Good air entry. No wheezes or rhonchi. Mechanical breath sounds. HEART: S1, S2. Regular rhythm. No gallops. ABDOMEN: Soft, nondistended, and nontender. Positive bowel sounds. EXTREMITIES: No cyanosis, clubbing, or edema. NEUROLOGIC: Limited secondary to the patient's status. SKIN: Diffuse macular rashes in the face area, trunk area, but no extension to the extremities. Last 24 Hour Vital Signs Date Time Temp Pulse Resp B/P (MAP) Pulse Ox O2 Delivery O2 Flow Rate FiO2 08/16/18 11:09 99.0 08/16/18 10:33 88 16 60 08/16/18 10:00 84 16 94/43 (60) 100 08/16/18 09:00 84 16 101/48 (65) 100 08/16/18 08:32 85 16 60 08/16/18 08:00 40 08/16/18 08:00 Mechanical Ventilator 08/16/18 08:00 99.0 85 16 90/46 (61) 100 08/16/18 08:00 85 08/16/18 07:43 16 Mechanical Ventilator 08/16/18 07:15 85 16 100 08/16/18 07:00 84 16 99/47 (64) 100 08/16/18 06:31 84 16 60 08/16/18 06:30 78 16 106/53 (70) 100 08/16/18 06:00 78 16 116/51 (72) 100 08/16/18 05:30 82 14 115/52 (73) 100 08/16/18 05:07 86 16 60 08/16/18 05:00 82 16 116/62 (80) 100 08/16/18 04:30 81 16 116/67 (83) 100 08/16/18 04:00 40 08/16/18 04:00 Mechanical Ventilator 08/16/18 04:00 98.8 88 16 111/51 (71) 100 08/16/18 04:00 81 08/16/18 03:45 88 16 115/56 (75) 100 08/16/18 02:36 99.0 08/16/18 02:30 70 16 60 08/16/18 02:15 105 20 109/39 (62) 100 08/16/18 02:00 71 16 109/39 (62) 100 08/16/18 02:00 17 Endotracheal Tube 40 08/16/18 01:45 70 16 110/53 (72) 100 08/16/18 01:30 73 17 112/55 (74) 100 08/16/18 01:15 70 16 113/63 (80) 100 08/16/18 01:00 16 Endotracheal Tube 40 08/16/18 01:00 74 17 119/60 (79) 100 08/16/18 00:49 72 16 60 08/16/18 00:45 71 17 126/67 (86) 100 08/16/18 00:30 91 17 93/65 (74) 100 08/16/18 00:00 99.0 73 16 95/30 (51) 100 08/16/18 00:00 Mechanical Ventilator 08/16/18 00:00 16 Endotracheal Tube 40 08/16/18 00:00 76 08/15/18 23:45 72 16 96/31 (52) 100 08/15/18 23:30 71 16 97/34 (55) 100 08/15/18 23:17 98.8 08/15/18 23:15 71 16 97/36 (56) 100 08/15/18 23:00 74 17 100/38 (58) 100 08/15/18 23:00 16 Endotracheal Tube 40 08/15/18 22:54 81 16 60 08/15/18 22:47 16 Endotracheal Tube 40 08/15/18 22:46 16 Endotracheal Tube 40 08/15/18 22:45 75 16 92/43 (59) 100 08/15/18 22:30 75 16 95/33 (53) 100 08/15/18 22:15 75 16 94/40 (58) 100 08/15/18 22:00 16 Endotracheal Tube 60 08/15/18 22:00 75 16 98/42 (60) 100 08/15/18 21:45 104 22 109/43 (65) 100 08/15/18 21:30 75 16 111/57 (75) 100 08/15/18 21:22 75 16 60 08/15/18 21:15 76 16 109/56 (73) 100 08/15/18 21:00 81 16 113/56 (75) 100 08/15/18 21:00 16 Endotracheal Tube 60 08/15/18 20:45 88 15 107/46 (66) 100 08/15/18 20:30 77 16 105/49 (67) 100 08/15/18 20:15 76 16 104/63 (77) 100 08/15/18 20:00 60 08/15/18 20:00 100.7 79 16 96/56 (69) 100 08/15/18 20:00 73 08/15/18 20:00 16 Endotracheal Tube 60 08/15/18 20:00 Mechanical Ventilator 08/15/18 19:45 79 16 111/40 (63) 100 08/15/18 19:30 86 16 111/43 (65) 100 08/15/18 19:29 86 16 60 08/15/18 19:00 84 18 104/58 (73) 100 08/15/18 19:00 16 Endotracheal Tube 60 08/15/18 18:00 84 18 113/63 (80) 100 08/15/18 17:00 88 18 110/60 (77) 100 08/15/18 16:44 87 16 60 08/15/18 16:00 60 08/15/18 16:00 98.7 85 18 118/65 (82) 100 08/15/18 16:00 80 08/15/18 16:00 Mechanical Ventilator 08/15/18 15:17 87 16 60 08/15/18 15:00 81 18 122/71 (88) 100 08/15/18 14:00 88 18 120/72 (88) 100 08/15/18 13:15 82 16 60 08/15/18 13:00 86 18 125/70 (88) 100 08/15/18 12:00 98.9 88 18 122/68 (86) 100 08/15/18 12:00 80 08/15/18 12:00 Mechanical Ventilator 08/15/18 12:00 84 Intake and Output 08/15/18 08/16/18 18:59 06:59 Intake Total 251.1 ml 455.73 ml Output Total 2600 ml 4075 ml Balance -2348.9 ml -3619.27 ml Intake Oral 0 ml IV Total 251.1 ml 455.73 ml Output Urine Total 2600 ml 4075 ml Laboratory Tests Test 08/15/18 16:20 08/16/18 05:10 08/16/18 05:30 Sodium Level 128 MMOL/L (136-145) #L 135 MMOL/L (136-145) L Potassium Level 3.5 MMOL/L (3.5-5.1) 3.4 MMOL/L (3.5-5.1) L Chloride Level 92 MMOL/L (98-107) L 97 MMOL/L (98-107) L Carbon Dioxide Level 25 MMOL/L (21-32) 26 MMOL/L (21-32) Anion Gap 11 mmol/L (5-15) 12 mmol/L (5-15) Blood Urea Nitrogen 8 mg/dL (7-18) 7 mg/dL (7-18) Creatinine 1.0 MG/DL (0.55-1.30) 1.1 MG/DL (0.55-1.30) Estimat Glomerular Filtration Rate > 60 mL/min (>60) > 60 mL/min (>60) Glucose Level 103 MG/DL (74-106) 110 MG/DL (74-106) H Calcium Level 7.7 MG/DL (8.5-10.1) L 8.0 MG/DL (8.5-10.1) L Phosphorus Level 2.5 MG/DL (2.5-4.9) 2.1 MG/DL (2.5-4.9) L Magnesium Level 1.4 MG/DL (1.8-2.4) L 1.7 MG/DL (1.8-2.4) L Total Bilirubin 0.7 MG/DL (0.2-1.0) 0.8 MG/DL (0.2-1.0) Aspartate Amino Transf (AST/SGOT) 94 U/L (15-37) H 90 U/L (15-37) H Alanine Aminotransferase (ALT/SGPT) 42 U/L (12-78) 43 U/L (12-78) Alkaline Phosphatase 74 U/L (46-116) 69 U/L (46-116) Total Protein 6.1 G/DL (6.4-8.2) L 6.6 G/DL (6.4-8.2) Albumin 3.6 G/DL (3.4-5.0) 3.6 G/DL (3.4-5.0) Globulin 2.5 g/dL 3.0 g/dL Albumin/Globulin Ratio 1.4 (1.0-2.7) 1.2 (1.0-2.7) White Blood Count 10.4 K/UL (4.8-10.8) Red Blood Count 4.62 M/UL (4.70-6.10) L Hemoglobin 13.8 G/DL (14.2-18.0) L Hematocrit 40.7 % (42.0-52.0) L Mean Corpuscular Volume 88 FL (80-99) Mean Corpuscular Hemoglobin 30.0 PG (27.0-31.0) Mean Corpuscular Hemoglobin Concent 34.0 G/DL (32.0-36.0) Red Cell Distribution Width 11.5 % (11.6-14.8) L Platelet Count 183 K/UL (150-450) Mean Platelet Volume 7.6 FL (6.5-10.1) Neutrophils (%) (Auto) 81.5 % (45.0-75.0) H Lymphocytes (%) (Auto) 7.0 % (20.0-45.0) L Monocytes (%) (Auto) 11.2 % (1.0-10.0) H Eosinophils (%) (Auto) 0.0 % (0.0-3.0) Basophils (%) (Auto) 0.3 % (0.0-2.0) Prothrombin Time 11.2 SEC (9.30-11.50) Prothromb Time International Ratio 1.1 (0.9-1.1) Activated Partial Thromboplast Time 29 SEC (23-33) Osmolality 286 mOsm/kg (297-317) L Uric Acid 2.6 MG/DL (2.6-7.2) Ionized Calcium (Measured) 0.99 mmol/L (1.10-1.35) L Lactate Dehydrogenase 252 U/L (81-234) H Folate 16.9 NG/ML (8.6-58.9) Height (Feet): 6 Height (Inches): 0.00 Weight (Pounds): 165 Medications Current Medications Medications (Trade) Dose Ordered Sig/Olivia Route PRN Reason Start Time Stop Time Status Last Admin Dose Admin Acetaminophen (Tylenol) 650 mg Q4H PRN ORAL Fever 08/15/18 08:00 09/14/18 07:59 08/16/18 10:39 Albuterol/ Ipratropium (Albuterol/ Ipratropium) 3 ml Q4H PRN HHN Shortness of Breath 08/15/18 08:00 08/20/18 07:59 Dextrose (Dextrose 50%) 25 ml Q30M PRN IV Hypoglycemia 08/15/18 08:00 09/14/18 07:59 Dextrose (Dextrose 50%) 50 ml Q30M PRN IV Hypoglycemia 08/15/18 08:00 09/14/18 07:59 Fentanyl Citrate 1000 mcg/Sodium Chloride 100 ml @ 0 mls/hr Q24H IV 08/15/18 09:30 08/22/18 09:29 Future Hold 08/16/18 07:43 Furosemide (Lasix) 10 mg Q6HR IV 08/16/18 12:00 09/15/18 11:59 Gadobutrol (Gadavist) 7.5 mmol NOW PRN IV Radiology Procedure 08/15/18 23:15 08/19/18 23:15 Haloperidol Lactate 5 mg/ Dextrose 56 ml @ 224 mls/hr Q1H PRN IVPB Agitation 08/16/18 10:15 09/15/18 10:14 Heparin Sodium (Porcine) (Heparin 5000 units/ml) 5,000 units EVERY 12 HOURS SUBQ 08/15/18 09:00 09/14/18 08:59 08/16/18 08:34 Lorazepam (Ativan 2mg/ml 1ml) 2 mg Q2H PRN IV agitation 08/15/18 08:00 08/22/18 07:59 08/16/18 10:31 Metoclopramide HCl (Reglan) 10 mg Q6HR IVP 08/15/18 19:00 09/14/18 18:59 08/16/18 06:06 Morphine Sulfate (Morphine Sulfate) 4 mg Q4H PRN IVP Severe Pain (Pain Scale 7-10) 08/15/18 08:00 08/22/18 07:59 08/15/18 08:39 Ondansetron HCl (Zofran) 4 mg Q6H PRN IVP Nausea & Vomiting 08/15/18 08:00 09/14/18 07:59 08/16/18 03:15 Pantoprazole (Protonix) 40 mg EVERY 12 HOURS IVP 08/15/18 21:00 09/14/18 20:59 08/16/18 08:32 Potassium Chloride 100 ml @ 100 mls/hr Q1H IVPB 08/16/18 11:00 08/16/18 14:59 Potassium Chloride (K-Dur) 40 meq Q6HR NG 08/15/18 12:00 09/14/18 11:59 08/16/18 06:06 Sodium Chloride 400 ml @ 100 mls/hr Q4H IV 08/16/18 11:00 08/16/18 14:59 Sodium Phosphate 30 mm/Sodium Chloride 285 ml @ 47.5 mls/hr ONCE ONCE IV 08/16/18 15:00 08/16/18 20:59 Assessment/Plan Assessment/Plan Abx: None Assessment: Sepsis -u/a neg -CXR: Left perihilar mild interstitial edema -Bcx p Viral syndrome Macular rash- Rash suggestive of measles given distribution but hx is limited and differential diagnosis is broad such as Measles, Acute HIV, Influenza, Meningococcemia/Meningococcal meningitis given altered mental status Acute encephalopathy s/p intubation for airway protection -CT head: Normal CT scan of the head without contrast material.Incidental finding of sinus disease -UDS, ethanol level neg Lactic acidosis Seizure Hyponatremia DON, imroving Drug abuse Plan: -Start empiric IV Vancomycin and Ceftriaxone to cover for meningitis -LP as soon as possible -CSF fluid analysis, cx, VDRL -f/u cx -Monitor CBC/CMP, temperatures -influenza sc -HIV ab and VL, RPR, hep panel, Measles IgG and IgM -Recommend Caitlyn hein -I have contacted [facility] and have ordered throat and urine specimens for MEasles PCR to be sent to [facility] on Saturday. I have called the microbiology lab but no one answered so I placed an order of Lab request for Service with instructions about specimens collection and shipping. This needs to be follow up on Saturday. Thank you for this consultation. Will continue to follow along with you. Discussed with Cristela Becerril M.D. Aug 16, 2018 11:48
[2018-08-16] MEDS: Haloperidol Lactate 5 MG in D5W 55 ML IVPB PRN ×2 (12:35→15:09)
--- NOTE | 2018-08-16 13:15 | NUR ---
RESPIRATORY NOTE: Patient extubated at this time per MD order. Pt moises extubation well. No resp distress noted. Will monitor pt progress.
--- NOTE | 2018-08-16 13:18 | NUR ---
NURSE NOTES: Pt extubated and placed on 4L O2, oxygen saturation is 100%. No acute distress. Will continue to monitor.
[2018-08-16] MEDS ORDERED: Vancomycin 1.5gm Premix IVPB ONE (14:00)
[2018-08-16] MEDS: cefTRIAXone 2 GM in D5W 55 ML IVPB SCH ×2 (14:05→20:16)
--- NOTE | 2018-08-16 14:46 | Nephrology Progress Note ---
Assessment/Plan Problem List: (1) Hyponatremia (2) Hypokalemia (3) Acute respiratory failure (4) Sepsis Assessment Hyponatremia likely SIADH Encephalopathy Hypokalemia Respiratory failure acute lactic acidosis / sepsis / Rash Sz Plan 3% Saline , IV Lasix barron NGT K supplement Mag and Phos supplement Vent support Per ID Subjective ROS Limited/Unobtainable: Yes Objective Objective Last 24 Hour Vital Signs Date Time Temp Pulse Resp B/P (MAP) Pulse Ox O2 Delivery O2 Flow Rate FiO2 08/16/18 14:00 84 20 94/59 (71) 100 08/16/18 13:15 Nasal Cannula 4.0 36 08/16/18 13:00 73 16 95/37 (56) 100 08/16/18 12:00 Mechanical Ventilator 08/16/18 12:00 98.7 87 16 100/43 (62) 100 08/16/18 12:00 85 08/16/18 12:00 40 08/16/18 11:09 99.0 08/16/18 11:00 86 16 94/42 (59) 100 08/16/18 10:33 88 16 60 08/16/18 10:00 84 16 94/43 (60) 100 08/16/18 09:00 84 16 101/48 (65) 100 08/16/18 08:32 85 16 60 08/16/18 08:00 40 08/16/18 08:00 Mechanical Ventilator 08/16/18 08:00 99.0 85 16 90/46 (61) 100 08/16/18 08:00 85 08/16/18 07:43 16 Mechanical Ventilator 08/16/18 07:15 85 16 100 08/16/18 07:00 84 16 99/47 (64) 100 08/16/18 06:31 84 16 60 08/16/18 06:30 78 16 106/53 (70) 100 08/16/18 06:00 78 16 116/51 (72) 100 08/16/18 05:30 82 14 115/52 (73) 100 08/16/18 05:07 86 16 60 08/16/18 05:00 82 16 116/62 (80) 100 08/16/18 04:30 81 16 116/67 (83) 100 08/16/18 04:00 40 08/16/18 04:00 Mechanical Ventilator 08/16/18 04:00 98.8 88 16 111/51 (71) 100 08/16/18 04:00 81 08/16/18 03:45 88 16 115/56 (75) 100 08/16/18 02:36 99.0 08/16/18 02:30 70 16 60 08/16/18 02:15 105 20 109/39 (62) 100 08/16/18 02:00 71 16 109/39 (62) 100 08/16/18 02:00 17 Endotracheal Tube 40 08/16/18 01:45 70 16 110/53 (72) 100 08/16/18 01:30 73 17 112/55 (74) 100 08/16/18 01:15 70 16 113/63 (80) 100 08/16/18 01:00 16 Endotracheal Tube 40 08/16/18 01:00 74 17 119/60 (79) 100 08/16/18 00:49 72 16 60 08/16/18 00:45 71 17 126/67 (86) 100 08/16/18 00:30 91 17 93/65 (74) 100 08/16/18 00:00 99.0 73 16 95/30 (51) 100 08/16/18 00:00 Mechanical Ventilator 08/16/18 00:00 16 Endotracheal Tube 40 08/16/18 00:00 76 08/15/18 23:45 72 16 96/31 (52) 100 08/15/18 23:30 71 16 97/34 (55) 100 08/15/18 23:17 98.8 08/15/18 23:15 71 16 97/36 (56) 100 08/15/18 23:00 74 17 100/38 (58) 100 08/15/18 23:00 16 Endotracheal Tube 40 08/15/18 22:54 81 16 60 08/15/18 22:47 16 Endotracheal Tube 40 08/15/18 22:46 16 Endotracheal Tube 40 08/15/18 22:45 75 16 92/43 (59) 100 08/15/18 22:30 75 16 95/33 (53) 100 08/15/18 22:15 75 16 94/40 (58) 100 08/15/18 22:00 16 Endotracheal Tube 60 08/15/18 22:00 75 16 98/42 (60) 100 08/15/18 21:45 104 22 109/43 (65) 100 08/15/18 21:30 75 16 111/57 (75) 100 08/15/18 21:22 75 16 60 08/15/18 21:15 76 16 109/56 (73) 100 08/15/18 21:00 81 16 113/56 (75) 100 08/15/18 21:00 16 Endotracheal Tube 60 08/15/18 20:45 88 15 107/46 (66) 100 08/15/18 20:30 77 16 105/49 (67) 100 08/15/18 20:15 76 16 104/63 (77) 100 08/15/18 20:00 60 08/15/18 20:00 100.7 79 16 96/56 (69) 100 08/15/18 20:00 73 08/15/18 20:00 16 Endotracheal Tube 60 08/15/18 20:00 Mechanical Ventilator 08/15/18 19:45 79 16 111/40 (63) 100 08/15/18 19:30 86 16 111/43 (65) 100 08/15/18 19:29 86 16 60 08/15/18 19:00 84 18 104/58 (73) 100 08/15/18 19:00 16 Endotracheal Tube 60 08/15/18 18:00 84 18 113/63 (80) 100 08/15/18 17:00 88 18 110/60 (77) 100 08/15/18 16:44 87 16 60 08/15/18 16:00 60 08/15/18 16:00 98.7 85 18 118/65 (82) 100 08/15/18 16:00 80 08/15/18 16:00 Mechanical Ventilator 08/15/18 15:17 87 16 60 08/15/18 15:00 81 18 122/71 (88) 100 Intake and Output 08/15/18 08/16/18 18:59 06:59 Intake Total 251.1 ml 455.73 ml Output Total 2600 ml 4075 ml Balance -2348.9 ml -3619.27 ml Intake Oral 0 ml IV Total 251.1 ml 455.73 ml Output Urine Total 2600 ml 4075 ml Laboratory Tests 08/15/18 16:20: Sodium Level 128#L, Potassium Level 3.5, Chloride Level 92L, Carbon Dioxide Level 25, Anion Gap 11, Blood Urea Nitrogen 8, Creatinine 1.0, Estimat Glomerular Filtration Rate > 60, Glucose Level 103, Calcium Level 7.7L, Phosphorus Level 2.5, Magnesium Level 1.4L, Total Bilirubin 0.7, Aspartate Amino Transf (AST/SGOT) 94H, Alanine Aminotransferase (ALT/SGPT) 42, Alkaline Phosphatase 74, Total Protein 6.1L, Albumin 3.6, Globulin 2.5, Albumin/Globulin Ratio 1.4 08/16/18 05:10: White Blood Count 10.4, Red Blood Count 4.62L, Hemoglobin 13.8L, Hematocrit 40.7L, Mean Corpuscular Volume 88, Mean Corpuscular Hemoglobin 30.0, Mean Corpuscular Hemoglobin Concent 34.0, Red Cell Distribution Width 11.5L, Platelet Count 183, Mean Platelet Volume 7.6, Neutrophils (%) (Auto) 81.5H, Lymphocytes (%) (Auto) 7.0L, Monocytes (%) (Auto) 11.2H, Eosinophils (%) (Auto) 0.0, Basophils (%) (Auto) 0.3 08/16/18 05:30: Sodium Level 135L, Potassium Level 3.4L, Chloride Level 97L, Carbon Dioxide Level 26, Anion Gap 12, Blood Urea Nitrogen 7, Creatinine 1.1, Estimat Glomerular Filtration Rate > 60, Glucose Level 110H, Calcium Level 8.0L, Phosphorus Level 2.1L, Magnesium Level 1.7L, Total Bilirubin 0.8, Aspartate Amino Transf (AST/SGOT) 90H, Alanine Aminotransferase (ALT/SGPT) 43, Alkaline Phosphatase 69, Total Protein 6.6, Albumin 3.6, Globulin 3.0, Albumin/Globulin Ratio 1.2, Prothrombin Time 11.2, Prothromb Time International Ratio 1.1, Activated Partial Thromboplast Time 29, Osmolality 286L, Uric Acid 2.6, Ionized Calcium (Measured) 0.99L, Lactate Dehydrogenase 252H, Folate 16.9, Rubeola ( Measles) IgG Antibody [Pending], Rubeola (Measles) IgM Antibody [Pending] Height (Feet): 6 Height (Inches): 0.00 Weight (Pounds): 165 General Appearance: other - rash desiminated Cardiovascular: tachycardia Respiratory/Chest: decreased breath sounds Abdomen: distended Robbi Newton MD Aug 16, 2018 14:46
--- NOTE | 2018-08-16 14:52 | NUR ---
NURSE NOTES: Dr Bello here to see pt. ordered labs and antibiotics. No acute distress. VSS. Will continue to monitor.
[2018-08-16] MEDS ORDERED: Sodium Phosphate 30 MM in NS 275 ML IV ONE (15:00)
--- NOTE | 2018-08-16 15:41 | Neurology Progress Note ---
NeelKiana NAlbin 08/16/18 1541: Interim History Interim History ROS Limited/Unobtainable: Yes Complaints: AMS Events: Extubated today, able to say his own name. Review of Systems Neuro Review of Systems Unable to review systems due to patient's mental status. Objective Physical Exam Last Vital Signs Date Time Temp Pulse Resp B/P (MAP) Pulse Ox O2 Delivery O2 Flow Rate FiO2 08/16/18 15:00 75 18 112/44 (66) 100 08/16/18 13:15 Nasal Cannula 4.0 36 08/16/18 12:00 98.7 Laboratory Tests Test 08/15/18 16:20 08/16/18 05:10 08/16/18 05:30 Sodium Level 128 MMOL/L (136-145) #L 135 MMOL/L (136-145) L Potassium Level 3.5 MMOL/L (3.5-5.1) 3.4 MMOL/L (3.5-5.1) L Chloride Level 92 MMOL/L (98-107) L 97 MMOL/L (98-107) L Carbon Dioxide Level 25 MMOL/L (21-32) 26 MMOL/L (21-32) Anion Gap 11 mmol/L (5-15) 12 mmol/L (5-15) Blood Urea Nitrogen 8 mg/dL (7-18) 7 mg/dL (7-18) Creatinine 1.0 MG/DL (0.55-1.30) 1.1 MG/DL (0.55-1.30) Estimat Glomerular Filtration Rate > 60 mL/min (>60) > 60 mL/min (>60) Glucose Level 103 MG/DL (74-106) 110 MG/DL (74-106) H Calcium Level 7.7 MG/DL (8.5-10.1) L 8.0 MG/DL (8.5-10.1) L Phosphorus Level 2.5 MG/DL (2.5-4.9) 2.1 MG/DL (2.5-4.9) L Magnesium Level 1.4 MG/DL (1.8-2.4) L 1.7 MG/DL (1.8-2.4) L Total Bilirubin 0.7 MG/DL (0.2-1.0) 0.8 MG/DL (0.2-1.0) Aspartate Amino Transf (AST/SGOT) 94 U/L (15-37) H 90 U/L (15-37) H Alanine Aminotransferase (ALT/SGPT) 42 U/L (12-78) 43 U/L (12-78) Alkaline Phosphatase 74 U/L (46-116) 69 U/L (46-116) Total Protein 6.1 G/DL (6.4-8.2) L 6.6 G/DL (6.4-8.2) Albumin 3.6 G/DL (3.4-5.0) 3.6 G/DL (3.4-5.0) Globulin 2.5 g/dL 3.0 g/dL Albumin/Globulin Ratio 1.4 (1.0-2.7) 1.2 (1.0-2.7) White Blood Count 10.4 K/UL (4.8-10.8) Red Blood Count 4.62 M/UL (4.70-6.10) L Hemoglobin 13.8 G/DL (14.2-18.0) L Hematocrit 40.7 % (42.0-52.0) L Mean Corpuscular Volume 88 FL (80-99) Mean Corpuscular Hemoglobin 30.0 PG (27.0-31.0) Mean Corpuscular Hemoglobin Concent 34.0 G/DL (32.0-36.0) Red Cell Distribution Width 11.5 % (11.6-14.8) L Platelet Count 183 K/UL (150-450) Mean Platelet Volume 7.6 FL (6.5-10.1) Neutrophils (%) (Auto) 81.5 % (45.0-75.0) H Lymphocytes (%) (Auto) 7.0 % (20.0-45.0) L Monocytes (%) (Auto) 11.2 % (1.0-10.0) H Eosinophils (%) (Auto) 0.0 % (0.0-3.0) Basophils (%) (Auto) 0.3 % (0.0-2.0) Prothrombin Time 11.2 SEC (9.30-11.50) Prothromb Time International Ratio 1.1 (0.9-1.1) Activated Partial Thromboplast Time 29 SEC (23-33) Osmolality 286 mOsm/kg (297-317) L Uric Acid 2.6 MG/DL (2.6-7.2) Ionized Calcium (Measured) 0.99 mmol/L (1.10-1.35) L Lactate Dehydrogenase 252 U/L (81-234) H Folate 16.9 NG/ML (8.6-58.9) Rubeola (Measles) IgG Antibody Pending Rubeola (Measles) IgM Antibody Pending Neurologic Exam Mental Status: awake, other - Disorientated, minimally verbal, agitated with difficulty focusing on exam . Speech: other Language: other Cranial Nerves III, IV, : PERRLA, EOMI Cranial Nerve VII: no facial asymmetry Cranial Nerve VIII: normal hearing Cranial Nerve XI: SCM symmetric Cranial Nerve XII: tongue midline Motor System: normal muscle tone, strength 5/5 Sensory: normal light touch Gait: other Impression/Recommendations Problems: (1) Hyponatremia Assessment & Plan: Slowly correct Na to 135-145 with IVF (2) Hypokalemia Assessment & Plan: Correct/ replete as appropriate. (3) Acute respiratory failure Assessment & Plan: RT follow up PT/OT as able. (4) Acute metabolic encephalopathy Assessment & Plan: AMS secondary to hyponatremia/ hypokalemia/ rhabdomyolysis IVF with correction of lytes Q4 hour neuro checks Maintain Normothermia Maintain normoglycemia with ISS as needed. CT Brain NAD MRI Brain w/wo contrast when able to safely scan patient and follow with LP if inconclusive. Status: stable Kenan Pagan M.D. 08/17/18 1021: Impression/Recommendations Problems: (1) Hyponatremia Assessment & Plan: Slowly correct Na to 135-145 with IVF (2) Hypokalemia Assessment & Plan: Correct/ replete as appropriate. (3) Acute respiratory failure Assessment & Plan: RT follow up PT/OT as able. (4) Acute metabolic encephalopathy Assessment & Plan: AMS secondary to severe hyponatremia IVF with 3% Q4 hour neuro checks Maintain Normothermia Maintain normoglycemia with ISS as needed. CT Brain NAD MRI Brain w/wo contrast when able to safely scan patient and follow with LP if inconclusive. crit care time > 30 min Kiana Shaikh N.P. Aug 16, 2018 15:41 Kenan Pagan M.D. Aug 17, 2018 10:21
[2018-08-16] MEDS ORDERED: Haloperidol Lactate 5 MG in D5W 55 ML IVPB PRN (16:15)
--- NOTE | 2018-08-16 16:35 | Internal Med Progress Note ---
Subjective Date of Service: Aug 16, 2018 Physician Name Kishor Maddox Attending Physician Cash Morel MD Current Medications Medications (Trade) Dose Ordered Sig/Olivia Route PRN Reason Start Time Stop Time Status Last Admin Dose Admin Acetaminophen (Tylenol) 650 mg Q4H PRN ORAL Fever 08/15/18 08:00 09/14/18 07:59 08/16/18 10:39 Albuterol/ Ipratropium (Albuterol/ Ipratropium) 3 ml Q4H PRN HHN Shortness of Breath 08/15/18 08:00 08/20/18 07:59 Ceftriaxone Sodium 2 gm/ Dextrose 55 ml @ 110 mls/hr EVERY 12 HOURS IVPB 08/16/18 13:00 08/23/18 12:59 08/16/18 14:05 Dextrose (Dextrose 50%) 25 ml Q30M PRN IV Hypoglycemia 08/15/18 08:00 09/14/18 07:59 Dextrose (Dextrose 50%) 50 ml Q30M PRN IV Hypoglycemia 08/15/18 08:00 09/14/18 07:59 Furosemide (Lasix) 10 mg Q6HR IV 08/16/18 12:00 09/15/18 11:59 08/16/18 12:51 Gadobutrol (Gadavist) 7.5 mmol NOW PRN IV Radiology Procedure 08/15/18 23:15 08/19/18 23:15 Haloperidol Lactate 5 mg/ Dextrose 56 ml @ 224 mls/hr Q1H PRN IVPB Agitation 08/16/18 16:15 09/15/18 10:14 Heparin Sodium (Porcine) (Heparin 5000 units/ml) 5,000 units EVERY 12 HOURS SUBQ 08/15/18 09:00 09/14/18 08:59 08/16/18 08:34 Lorazepam (Ativan 2mg/ml 1ml) 2 mg Q2H PRN IV agitation 08/15/18 08:00 08/22/18 07:59 08/16/18 13:48 Metoclopramide HCl (Reglan) 10 mg Q6HR IVP 08/15/18 19:00 09/14/18 18:59 08/16/18 11:34 Morphine Sulfate (Morphine Sulfate) 4 mg Q4H PRN IVP Severe Pain (Pain Scale 7-10) 4/5/19 08:00 08/22/18 07:59 08/15/18 08:39 Ondansetron HCl (Zofran) 4 mg Q6H PRN IVP Nausea & Vomiting 08/15/18 08:00 09/14/18 07:59 08/16/18 03:15 Pantoprazole (Protonix) 40 mg EVERY 12 HOURS IVP 08/15/18 21:00 09/14/18 20:59 08/16/18 08:32 Potassium Chloride (K-Dur) 40 meq Q8HR NG 08/16/18 22:00 09/14/18 11:59 Sodium Phosphate 30 mm/Sodium Chloride 285 ml @ 47.5 mls/hr ONCE ONCE IV 08/16/18 15:00 08/16/18 20:59 08/16/18 15:25 Vancomycin HCl (Vanco rx to dose) 1 ea DAILY PRN MISC Per rx protocol 08/16/18 12:15 09/15/18 12:14 Vancomycin HCl 1 gm/Dextrose 275 ml @ 183.708 mls/hr Q8HR IVPB 08/16/18 22:00 08/21/18 21:59 Allergies: Coded Allergies: No Known Allergies (Unverified , 05/24/17) UNABLE TO ASSESS (Unverified , 08/15/18) ROS Limited/Unobtainable: Yes Subjective 28 YO M admitted with alerted mental status and probable drug overdose. Now respiratory failure, hyponatremia and rhabdomyolysis. Cover for Int steve-DR Morel. ICU. Intubated and sedated Objective Last Vital Signs Date Time Temp Pulse Resp B/P (MAP) Pulse Ox O2 Delivery O2 Flow Rate FiO2 08/16/18 16:00 98.7 78 11 99/60 (73) 100 08/16/18 16:00 Mechanical Ventilator 3.0 Nasal Cannula 08/16/18 13:15 36 General Appearance: WD/WN, lethargic EENT: PERRL/EOMI, normal ENT inspection Neck: non-tender, normal alignment, supple, normal inspection Cardiovascular: normal peripheral pulses, normal rate, regular rhythm, no gallop/murmur, no JVD Respiratory/Chest: respiratory distress, accessory muscle use, crackles/rales, rhonchi - bilaterally, expiratory wheezing Abdomen: normal bowel sounds, non tender, soft, no organomegaly, no mass, abnormal bowel sounds Extremities: normal range of motion, non-tender Edema: trace edema Neurologic: music therapy specialist II-XII grossly normal, disoriented Skin: normal pigmentation, warm/dry Laboratory Tests Test 08/16/18 05:10 08/16/18 05:30 White Blood Count 10.4 K/UL (4.8-10.8) Red Blood Count 4.62 M/UL (4.70-6.10) L Hemoglobin 13.8 G/DL (14.2-18.0) L Hematocrit 40.7 % (42.0-52.0) L Mean Corpuscular Volume 88 FL (80-99) Mean Corpuscular Hemoglobin 30.0 PG (27.0-31.0) Mean Corpuscular Hemoglobin Concent 34.0 G/DL (32.0-36.0) Red Cell Distribution Width 11.5 % (11.6-14.8) L Platelet Count 183 K/UL (150-450) Mean Platelet Volume 7.6 FL (6.5-10.1) Neutrophils (%) (Auto) 81.5 % (45.0-75.0) H Lymphocytes (%) (Auto) 7.0 % (20.0-45.0) L Monocytes (%) (Auto) 11.2 % (1.0-10.0) H Eosinophils (%) (Auto) 0.0 % (0.0-3.0) Basophils (%) (Auto) 0.3 % (0.0-2.0) Prothrombin Time 11.2 SEC (9.30-11.50) Prothromb Time International Ratio 1.1 (0.9-1.1) Activated Partial Thromboplast Time 29 SEC (23-33) Sodium Level 135 MMOL/L (136-145) L Potassium Level 3.4 MMOL/L (3.5-5.1) L Chloride Level 97 MMOL/L (98-107) L Carbon Dioxide Level 26 MMOL/L (21-32) Anion Gap 12 mmol/L (5-15) Blood Urea Nitrogen 7 mg/dL (7-18) Creatinine 1.1 MG/DL (0.55-1.30) Estimat Glomerular Filtration Rate > 60 mL/min (>60) Glucose Level 110 MG/DL (74-106) H Osmolality 286 mOsm/kg (297-317) L Uric Acid 2.6 MG/DL (2.6-7.2) Calcium Level 8.0 MG/DL (8.5-10.1) L Ionized Calcium (Measured) 0.99 mmol/L (1.10-1.35) L Phosphorus Level 2.1 MG/DL (2.5-4.9) L Magnesium Level 1.7 MG/DL (1.8-2.4) L Total Bilirubin 0.8 MG/DL (0.2-1.0) Aspartate Amino Transf (AST/SGOT) 90 U/L (15-37) H Alanine Aminotransferase (ALT/SGPT) 43 U/L (12-78) Alkaline Phosphatase 69 U/L (46-116) Lactate Dehydrogenase 252 U/L (81-234) H Total Protein 6.6 G/DL (6.4-8.2) Albumin 3.6 G/DL (3.4-5.0) Globulin 3.0 g/dL Albumin/Globulin Ratio 1.2 (1.0-2.7) Folate 16.9 NG/ML (8.6-58.9) Rubeola (Measles) IgG Antibody Pending Rubeola (Measles) IgM Antibody Pending Microbiology Date/Time Source Procedure Growth Status 08/15/18 04:20 Rectum Received Intake and Output 08/15/18 08/16/18 19:00 07:00 Intake Total 270 ml 455.73 ml Output Total 1950 ml 4025 ml Balance -1680 ml -3569.27 ml Intake Oral 0 ml IV Total 270 ml 455.73 ml Output Urine Total 1950 ml 4025 ml Assessment/Plan Problem List: (1) Seizure Assessment & Plan: Due to hyponatremia. See neurology note. (2) Hyponatremia Assessment & Plan: Slow sodium replacement IV (3) Hypokalemia (4) Acute respiratory failure Assessment & Plan: Cont mech vent per pulmonary (5) Acute metabolic encephalopathy (6) Rhabdomyolysis Assessment & Plan: See nephrology note. Cont IV fluids Status: not improved Kishor Maddox MD Aug 16, 2018 16:35
--- NOTE | 2018-08-16 16:43 | NUR ---
NURSE NOTES: Neuro RADIO RIGGER here to see pt. Called MRI with no response. No new orders. No acute distress. Will continue to monitor.
--- NOTE | 2018-08-16 19:23 | NUR ---
HAND-OFF: Report given to Coreen VANN.
--- NOTE | 2018-08-16 19:25 | NUR ---
NURSE NOTES: Report received from EDWAR Sharp. Pt currently sedated, resting comfortably. cardiac monitor technician shows SR. Pt currently on 3L NC, O2 saturation @ 100%. Pt showing no signs of cardiac or respiratory distress. An NGT is present on the R nare, pt currently NPO. Vásquez catheter present and draining appropriately. No skin issues noted. Pt has a LAC18 and a RAC18g present with NaPO4 running @ 47.5 ml/hr. Pt has bilateral wrist restraints present, no skin breakdown or swelling noted. Bed in lowest position, bed alarms placed, call light within reach. Will continue to monitor and with patients plan of care.
[2018-08-16] MEDS: Vancomycin 1gm/D5W 275ml IVPB SCH ×2 (21:38)
--- NOTE | 2018-08-16 22:00 | NUR ---
NURSE NOTES: Pt resting comfortably. Tylenol administered for temp of 101.2, cooling measures applied. Pt showing no signs of distress. Will continue to monitor.
[2018-08-17] VITALS (17 sets, daily range): BP systolic 96–115; BP diastolic 41–65
--- NOTE | 2018-08-17 | NUR ---
NURSE NOTES: Pt alert and agitated, NGT removed @ approximately 2330. New NGT reinserted. Awaiting KUB. VSS. Pt showing no signs of acute distress. Will continue to monitor.
[2018-08-17] MEDS: Metoclopramide 10mg/2ml Inj IVP SCH ×2 (00:42→05:29)
--- NOTE | 2018-08-17 02:00 | NUR ---
NURSE NOTES: Pt resting at the moment. Showing no signs of acute distress. VSS.
[2018-08-17] MEDS: LORazepam Inj 2mg/ml 1ml IV PRN ×3 (02:36→10:51)
--- NOTE | 2018-08-17 04:00 | NUR ---
NURSE NOTES: Pt cleaned and repositioned. KUB obtained, awaiting results. Pt resting comfortably. VSS. Will continue to monitor.
--- NOTE | 2018-08-17 05:09 | Diagnostic Imaging Report ---
EXAM: XR Abdomen CLINICAL HISTORY: TUBE PLCMT TECHNIQUE: Frontal view of the abdomen COMPARISON: 08/15/18 FINDINGS/IMPRESSION: The exam is centered on the chest/upper abdomen. Tip of enteric tube is slightly past the GE junction. Proximal side port at level of lower thorax. Advancement of enteric tube by about 12 cm would likely result in more ideal positioning.
[2018-08-17] MEDS: Vancomycin 1gm/D5W 275ml IVPB SCH ×2 (05:30)
--- NOTE | 2018-08-17 06:00 | NUR ---
NURSE NOTES: Pt sleeping, showing no signs of distress. Ativan administered for agitation. VSS. Will continue to monitor.
--- NOTE | 2018-08-17 07:25 | NUR ---
NURSE NOTES: Report given to Chico Clay RN. MRI and spinal tap to be done Saturday as well as urine and throat cx. Pt in no acute distress at the moment. VSS.
[2018-08-17 07:55] LABS: BASOPHILS % (AUTO) 0.6 % (0.0-2.0); EOSINOPHILS % (AUTO) 0.1 % (0.0-3.0); HEMATOCRIT 40.9 % (42.0-52.0); HEMOGLOBIN 13.8 G/DL (14.2-18.0); LYMPHOCYTES % (AUTO) 13.1 % (20.0-45.0); MEAN CORPUSCULAR VOLUME 90 FL (80-99); MONOCYTES % (AUTO) 12.8 % (1.0-10.0); NEUTROPHILS % (AUTO) 73.3 % (45.0-75.0); PLATELET COUNT 177 K/UL (150-450); RED BLOOD COUNT 4.56 M/UL (4.70-6.10); RED CELL DISTRIBUTION WIDTH 11.9 % (11.6-14.8); WHITE BLOOD COUNT 7.8 K/UL (4.8-10.8)
--- NOTE | 2018-08-17 07:59 | NUR ---
NURSE NOTES: Report received from EDWAR Qureshi. Pt is sleeping on bed comfortably, all brakes engaged. Pt is on 3L NC, NG tube on R nare in place. Vásquez catheter patent, draining urine with gravity. Vital signs at this time: HR 78, BP 114/62, RR 17, SAT 100%. Pt in Airborne and Contact precaution. Labs to rule out measle still pending. Will cont to monitor.
[2018-08-17 08:23] LABS: ALANINE AMINOTRANSFERASE 52 U/L (12-78); ALBUMIN 3.7 G/DL (3.4-5.0); ALBUMIN/GLOBULIN RATIO 0.9 (1.0-2.7); ALKALINE PHOSPHATASE 70 U/L (46-116); ANION GAP 11 mmol/L (5-15); ASPARTATE AMINO TRANSFERASE 101 U/L (15-37); BILIRUBIN,TOTAL 0.7 MG/DL (0.2-1.0); BLOOD UREA NITROGEN 8 mg/dL (7-18); CALCIUM 8.5 MG/DL (8.5-10.1); CARBON DIOXIDE 27 MMOL/L (21-32); CHLORIDE 98 MMOL/L (98-107); CREATININE 1.2 MG/DL (0.55-1.30); PHOSPHORUS 2.3 MG/DL (2.5-4.9); POTASSIUM 3.5 MMOL/L (3.5-5.1); SODIUM 136 MMOL/L (136-145)
--- NOTE | 2018-08-17 08:43 | Diagnostic Imaging Report ---
EXAM: XR Chest, 1 View CLINICAL HISTORY: DYSPNEA TECHNIQUE: Frontal view of the chest. COMPARISON: Chest x-ray, 08/15/18 FINDINGS: Lungs: Improved bilateral airspace opacities with left lung clear. Mild residual medial right lower lung opacities. Pleural space: Unremarkable. No pneumothorax. Heart: Unremarkable. No cardiomegaly. Mediastinum: Unremarkable. Bones/joints: Unremarkable. Tubes, lines and devices: Interval removal of endotracheal tube. NG tube traverses diaphragm, tip is not seen. IMPRESSION: 1. Interval removal of endotracheal tube. 2. NG tube traverses diaphragm, tip is not seen. 3. Improved bilateral airspace opacities with left lung clear. Mild residual medial right lower lung opacities.
[2018-08-17] MEDS: Pantoprazole Inj IVP SCH ×2 (08:45→21:05)
[2018-08-17] MEDS: cefTRIAXone 2 GM in D5W 55 ML IVPB SCH ×2 (08:46→21:06)
[2018-08-17] MEDS: Heparin 5000 units/ml inj SUBQ SCH ×2 (08:49→21:04)
--- NOTE | 2018-08-17 10:22 | Neurology Progress Note ---
Interim History Interim History ROS Limited/Unobtainable: Yes Complaints: AMS Events: Extubated today, able to say his own name. Objective Physical Exam Last Vital Signs Date Time Temp Pulse Resp B/P (MAP) Pulse Ox O2 Delivery O2 Flow Rate FiO2 08/17/18 08:13 Nasal Cannula 3.0 32 08/17/18 08:13 99 08/17/18 08:00 99.4 116 14 111/53 (72) Laboratory Tests Test 08/17/18 04:00 08/17/18 06:55 Arterial Blood pH 7.431 (7.350-7.450) Arterial Blood Partial Pressure CO2 38.4 mmHg (35.0-45.0) Arterial Blood Partial Pressure O2 96.0 mmHg (75.0-100.0) Arterial Blood HCO3 25.0 mmol/L (22.0-26.0) Arterial Blood Oxygen Saturation 97.2 % (95-100) Arterial Blood Base Excess 0.8 (-2-2) Santino Test Positive White Blood Count 7.8 K/UL (4.8-10.8) Red Blood Count 4.56 M/UL (4.70-6.10) L Hemoglobin 13.8 G/DL (14.2-18.0) L Hematocrit 40.9 % (42.0-52.0) L Mean Corpuscular Volume 90 FL (80-99) Mean Corpuscular Hemoglobin 30.3 PG (27.0-31.0) Mean Corpuscular Hemoglobin Concent 33.8 G/DL (32.0-36.0) Red Cell Distribution Width 11.9 % (11.6-14.8) Platelet Count 177 K/UL (150-450) Mean Platelet Volume 7.4 FL (6.5-10.1) Neutrophils (%) (Auto) 73.3 % (45.0-75.0) Lymphocytes (%) (Auto) 13.1 % (20.0-45.0) L Monocytes (%) (Auto) 12.8 % (1.0-10.0) H Eosinophils (%) (Auto) 0.1 % (0.0-3.0) Basophils (%) (Auto) 0.6 % (0.0-2.0) Erythrocyte Sedimentation Rate 30 MM/HR (0-15) H Sodium Level 136 MMOL/L (136-145) Potassium Level 3.5 MMOL/L (3.5-5.1) Chloride Level 98 MMOL/L (98-107) Carbon Dioxide Level 27 MMOL/L (21-32) Anion Gap 11 mmol/L (5-15) Blood Urea Nitrogen 8 mg/dL (7-18) Creatinine 1.2 MG/DL (0.55-1.30) Estimat Glomerular Filtration Rate > 60 mL/min (>60) Glucose Level 127 MG/DL (74-106) H Osmolality 284 mOsm/kg (297-317) L Uric Acid 2.9 MG/DL (2.6-7.2) Calcium Level 8.5 MG/DL (8.5-10.1) Phosphorus Level 2.3 MG/DL (2.5-4.9) L Magnesium Level 1.8 MG/DL (1.8-2.4) Total Bilirubin 0.7 MG/DL (0.2-1.0) Aspartate Amino Transf (AST/SGOT) 101 U/L (15-37) H Alanine Aminotransferase (ALT/SGPT) 52 U/L (12-78) Alkaline Phosphatase 70 U/L (46-116) C-Reactive Protein, Quantitative 19.7 mg/dL (0.00-0.90) H Total Protein 7.6 G/DL (6.4-8.2) Albumin 3.7 G/DL (3.4-5.0) Globulin 3.9 g/dL Albumin/Globulin Ratio 0.9 (1.0-2.7) L Rapid Plasma Reagin Pending Hepatitis A IgM Antibody Pending Hepatitis B Surface Antigen Pending Hepatitis B Core IgM Antibody Pending Hepatitis C Antibody Pending HIV-1 RNA (PCR) log10 Value Pending HIV-1 RNA Ultraquantitative (PCR) Pending HIV (1&2) Antibody Rapid Negative (NEGATIVE) Neurologic Exam Mental Status: awake, other - Disorientated, minimally verbal, agitated with difficulty focusing on exam . Speech: other Language: other Cranial Nerves III, IV, : PERRLA, EOMI Cranial Nerve VII: no facial asymmetry Cranial Nerve VIII: normal hearing Cranial Nerve XI: SCM symmetric Cranial Nerve XII: tongue midline Motor System: normal muscle tone, strength 5/5 Sensory: normal light touch Gait: other Impression/Recommendations Problems: (1) Hyponatremia Assessment & Plan: Slowly correct Na to 135-145 with IVF (2) Hypokalemia Assessment & Plan: Correct/ replete as appropriate. (3) Acute respiratory failure Assessment & Plan: RT follow up PT/OT as able. (4) Acute metabolic encephalopathy Assessment & Plan: AMS secondary to severe hyponatremia IVF with 3% Q4 hour neuro checks Maintain Normothermia Maintain normoglycemia with ISS as needed. CT Brain NAD MRI Brain w/wo contrast when able to safely scan patient and follow with LP if inconclusive. crit care time > 30 min Status: stable Kenan Pagan M.D. Aug 17, 2018 10:22
--- NOTE | 2018-08-17 10:52 | NUR ---
NURSE NOTES: Dr. Pagan at bedside for Lumbar Puncture procedure. Consent signed by Dr. Pagan and Dr. Newton, witnessed by RN.
[2018-08-17] MEDS ORDERED: Potassium Phosphate 30 MM in NS 275 ML IV ONE (11:00)
--- NOTE | 2018-08-17 11:41 | Pulmonolgy Critical Care Note ---
Critical Care - Asmt/Plan Problems: (1) Acute metabolic encephalopathy (2) Drug abuse (3) Hypokalemia Respiratory: monitor respiratory rate, adjust FIO2 Cardiac: continue to monitor HR/BP Renal: F/U I&O Infectious Disease: check cultures Gastrointestinal: continue feedings/current rate Endocrine: monitor blood sugar Hematologic: monitor H/H Prophylaxis: Protonix Notes Reviewed: chief of vital statistics, cardio, renal Discussed with: nurses, consultants, adult protective caseworkerclaims account manager - Objective Last 24 Hour Vital Signs Date Time Temp Pulse Resp B/P (MAP) Pulse Ox O2 Delivery O2 Flow Rate FiO2 08/17/18 11:00 83 17 113/57 (75) 100 08/17/18 10:00 81 14 98/53 (68) 98 08/17/18 09:00 99.4 105 17 111/60 (77) 100 08/17/18 08:13 Nasal Cannula 3.0 32 08/17/18 08:13 99 Nasal Cannula 3.0 32 08/17/18 08:00 Nasal Cannula 3.0 Nasal Cannula 3.0 08/17/18 08:00 99.4 116 14 111/53 (72) 100 08/17/18 07:00 99.4 72 20 114/62 (79) 100 08/17/18 06:00 125 17 111/57 (75) 100 08/17/18 05:00 99.0 104 17 114/61 (78) 100 08/17/18 04:00 99 08/17/18 04:00 90 14 103/53 (70) 100 08/17/18 04:00 Mechanical Ventilator 3.0 Nasal Cannula 08/17/18 03:00 79 15 100/50 (67) 100 08/17/18 02:00 119 14 104/57 (73) 100 08/17/18 01:00 74 15 96/41 (59) 100 08/17/18 00:00 98.9 80 15 114/53 (73) 100 08/17/18 00:00 81 08/17/18 00:00 Mechanical Ventilator 3.0 Nasal Cannula 08/16/18 23:00 89 13 100/52 (68) 100 08/16/18 22:24 99.5 08/16/18 22:00 101.2 85 14 105/64 (78) 100 08/16/18 21:37 Nasal Cannula 3.0 32 08/16/18 21:37 98 Nasal Cannula 3.0 32 08/16/18 21:00 93 13 115/61 (79) 100 08/16/18 20:00 Mechanical Ventilator 3.0 Nasal Cannula 08/16/18 20:00 82 08/16/18 20:00 93 17 116/56 (76) 99 08/16/18 19:00 94 13 118/74 (89) 96 08/16/18 18:00 125 18 121/73 (89) 100 08/16/18 17:00 85 12 111/63 (79) 100 08/16/18 16:00 98.7 78 11 99/60 (73) 100 08/16/18 16:00 83 08/16/18 16:00 Mechanical Ventilator 3.0 Nasal Cannula 08/16/18 15:00 75 18 112/44 (66) 100 08/16/18 14:00 84 20 94/59 (71) 100 08/16/18 13:15 Nasal Cannula 4.0 36 08/16/18 13:00 73 16 95/37 (56) 100 08/16/18 12:00 Mechanical Ventilator 08/16/18 12:00 98.7 87 16 100/43 (62) 100 08/16/18 12:00 85 08/16/18 12:00 40 Status: somnolent Condition: critical HEENT: atraumatic Heart: HR/BP stable, regular Abdomen: active bowel sounds Extremities: edema Micro: Microbiology Date/Time Source Procedure Growth Status 08/15/18 04:30 Blood Blood Culture - Preliminary NO GROWTH AFTER 24 HOURS Resulted 08/15/18 04:15 Blood Blood Culture - Preliminary NO GROWTH AFTER 24 HOURS Resulted 08/15/18 04:20 Nasal Nares MRSA Culture - Final NO METHICILLIN RESISTANT STAPH AUREUS... Complete 08/15/18 04:20 Rectum - Final NO CARBAPENEM-RESISTANT ENTEROBACTERI... Complete 08/15/18 04:20 Rectum VRE Culture - Final NO VANCOMYCIN RESISTANT ENTEROCOCCUS ... Complete Critical Care - Subjective ROS Limited/Unobtainable: Yes Interval Events: tolerating extubation FI02: 32 Vent Support Breath Rate: 16 Vent Support Mode: AC Vent Tidal Volume: 600 Sputum Amount: Small PIP: 32 I&O: Intake and Output 08/16/18 08/17/18 18:59 06:59 Intake Total 1172.0 ml 500.000 ml Output Total 1400 ml 2930 ml Balance -228.0 ml -2430.000 ml IV Total 1172.0 ml 330.000 ml Other 170 ml Output Urine Total 1400 ml 2930 ml CXR: HECTOR ET-Tube: 8.0 ET Position: 23 Dhruv Santiago MD Aug 17, 2018 11:41
--- NOTE | 2018-08-17 11:58 | NUR ---
CASE MANAGEMENT: REVIEW SI: AMS . ARF . DRUG ABUSE . ENCEPHALOPATHY T 99.4 HR 116 BP 14 BP 98/53 SAT 99% NC/3L ESR 30 OSMOLALITY 284 C-REACTIVE PROTEIN 19.7 IS: LASIX IV Q8HR K PHOS IV X1 VANCO IV Q8HR CEFTRIAXONE IV Q12HR ATIVAN IV PRN HALDOL IV PRN NPO ICU STATUS DCP: PATIENT IS FROM HOME
--- NOTE | 2018-08-17 12:10 | NUR ---
NURSE NOTES: Pt cleaned, linen changed. No bowel movement noted. Pt is sleeping, no sign of acute distress.
--- NOTE | 2018-08-17 13:01 | Neurology Progress Note ---
Interim History Interim History ROS Limited/Unobtainable: Yes Complaints: AMS Events: Extubated, able to say his own name, confused, moving all 4 in bed Objective Physical Exam Last Vital Signs Date Time Temp Pulse Resp B/P (MAP) Pulse Ox O2 Delivery O2 Flow Rate FiO2 08/17/18 11:00 83 17 113/57 (75) 100 08/17/18 09:00 99.4 08/17/18 08:13 Nasal Cannula 3.0 32 Laboratory Tests Test 08/17/18 04:00 08/17/18 06:55 Arterial Blood pH 7.431 (7.350-7.450) Arterial Blood Partial Pressure CO2 38.4 mmHg (35.0-45.0) Arterial Blood Partial Pressure O2 96.0 mmHg (75.0-100.0) Arterial Blood HCO3 25.0 mmol/L (22.0-26.0) Arterial Blood Oxygen Saturation 97.2 % (95-100) Arterial Blood Base Excess 0.8 (-2-2) Santino Test Positive White Blood Count 7.8 K/UL (4.8-10.8) Red Blood Count 4.56 M/UL (4.70-6.10) L Hemoglobin 13.8 G/DL (14.2-18.0) L Hematocrit 40.9 % (42.0-52.0) L Mean Corpuscular Volume 90 FL (80-99) Mean Corpuscular Hemoglobin 30.3 PG (27.0-31.0) Mean Corpuscular Hemoglobin Concent 33.8 G/DL (32.0-36.0) Red Cell Distribution Width 11.9 % (11.6-14.8) Platelet Count 177 K/UL (150-450) Mean Platelet Volume 7.4 FL (6.5-10.1) Neutrophils (%) (Auto) 73.3 % (45.0-75.0) Lymphocytes (%) (Auto) 13.1 % (20.0-45.0) L Monocytes (%) (Auto) 12.8 % (1.0-10.0) H Eosinophils (%) (Auto) 0.1 % (0.0-3.0) Basophils (%) (Auto) 0.6 % (0.0-2.0) Erythrocyte Sedimentation Rate 30 MM/HR (0-15) H Sodium Level 136 MMOL/L (136-145) Potassium Level 3.5 MMOL/L (3.5-5.1) Chloride Level 98 MMOL/L (98-107) Carbon Dioxide Level 27 MMOL/L (21-32) Anion Gap 11 mmol/L (5-15) Blood Urea Nitrogen 8 mg/dL (7-18) Creatinine 1.2 MG/DL (0.55-1.30) Estimat Glomerular Filtration Rate > 60 mL/min (>60) Glucose Level 127 MG/DL (74-106) H Osmolality 284 mOsm/kg (297-317) L Uric Acid 2.9 MG/DL (2.6-7.2) Calcium Level 8.5 MG/DL (8.5-10.1) Phosphorus Level 2.3 MG/DL (2.5-4.9) L Magnesium Level 1.8 MG/DL (1.8-2.4) Total Bilirubin 0.7 MG/DL (0.2-1.0) Aspartate Amino Transf (AST/SGOT) 101 U/L (15-37) H Alanine Aminotransferase (ALT/SGPT) 52 U/L (12-78) Alkaline Phosphatase 70 U/L (46-116) C-Reactive Protein, Quantitative 19.7 mg/dL (0.00-0.90) H Total Protein 7.6 G/DL (6.4-8.2) Albumin 3.7 G/DL (3.4-5.0) Globulin 3.9 g/dL Albumin/Globulin Ratio 0.9 (1.0-2.7) L Rapid Plasma Reagin Pending Hepatitis A IgM Antibody Pending Hepatitis B Surface Antigen Pending Hepatitis B Core IgM Antibody Pending Hepatitis C Antibody Pending HIV-1 RNA (PCR) log10 Value Pending HIV-1 RNA Ultraquantitative (PCR) Pending HIV (1&2) Antibody Rapid Negative (NEGATIVE) Neurologic Exam Mental Status: awake, other - Disorientated, minimally verbal, agitated with difficulty focusing on exam . Speech: other Language: other Cranial Nerves III, IV, : PERRLA, EOMI Cranial Nerve VII: no facial asymmetry Cranial Nerve VIII: normal hearing Cranial Nerve XI: SCM symmetric Cranial Nerve XII: tongue midline Motor System: normal muscle tone, strength 5/5 Sensory: normal light touch Gait: other Impression/Recommendations Problems: (1) Hyponatremia Assessment & Plan: Slowly correct Na to 135-145 with IVF (2) Hypokalemia Assessment & Plan: Correct/ replete as appropriate. (3) Acute respiratory failure Assessment & Plan: RT follow up PT/OT as able. (4) Acute metabolic encephalopathy Assessment & Plan: AMS secondary to severe hyponatremia r/o [place] encephalitis NA >135 Q4 hour neuro checks Maintain Normothermia Broad spectrum atb Maintain normoglycemia with ISS as needed. CT Brain NAD MRI Brain w/wo contrast when able to safely scan patient and follow with LP if inconclusive. crit care time > 30 min Lumbar Puncture Procedure Note Time Out/ Side & Site Verification: 10:20 am A formal time out prior to beginning the procedure was completed. Time Out Completed at: 10:22 am Date of Procedure: 08/17/18 Time of Procedure: 10:25 am Patient was placed in a lateral position. The back was prepped and draped in a sterile fashion using chlorhexidine. Anesthesia was obtained through 5 cc of lidocaine. A 22-gauge blunt spinal needle was to enter the dural space at the L4-L5 level on the 1st attempt. Patient instructed to remain supine for 120 minutes. 20 cc's of clear" CSF fluid was collected in 4 vials and sent to the lab for analysis. Opening pressure was 26 cm H2O. The patient tolerated the procedure well with no complications. Status: stable Kenan Pagan M.D. Aug 17, 2018 13:01
--- NOTE | 2018-08-17 13:09 | Nephrology Progress Note ---
Assessment/Plan Problem List: (1) Hyponatremia (2) Hypokalemia (3) Acute respiratory failure (4) Sepsis Assessment Hyponatremia likely SIADH Encephalopathy Hypokalemia Respiratory failure acute lactic acidosis / sepsis / Rash Sz Plan D5NS barron NGT Mag and Phos , K supplement as needed Vent support Per ID Subjective ROS Limited/Unobtainable: Yes Objective Objective Last 24 Hour Vital Signs Date Time Temp Pulse Resp B/P (MAP) Pulse Ox O2 Delivery O2 Flow Rate FiO2 08/17/18 13:01 79 17 107/65 (79) 99 08/17/18 12:00 Nasal Cannula 3.0 Nasal Cannula 3.0 08/17/18 12:00 81 15 114/51 (72) 99 08/17/18 11:00 83 17 113/57 (75) 100 08/17/18 10:00 81 14 98/53 (68) 98 08/17/18 09:00 99.4 105 17 111/60 (77) 100 08/17/18 08:13 Nasal Cannula 3.0 32 08/17/18 08:13 99 Nasal Cannula 3.0 32 08/17/18 08:00 Nasal Cannula 3.0 Nasal Cannula 3.0 08/17/18 08:00 99.4 116 14 111/53 (72) 100 08/17/18 07:00 99.4 72 20 114/62 (79) 100 08/17/18 06:00 125 17 111/57 (75) 100 08/17/18 05:00 99.0 104 17 114/61 (78) 100 08/17/18 04:00 99 08/17/18 04:00 90 14 103/53 (70) 100 08/17/18 04:00 Mechanical Ventilator 3.0 Nasal Cannula 08/17/18 03:00 79 15 100/50 (67) 100 08/17/18 02:00 119 14 104/57 (73) 100 08/17/18 01:00 74 15 96/41 (59) 100 08/17/18 00:00 98.9 80 15 114/53 (73) 100 08/17/18 00:00 81 08/17/18 00:00 Mechanical Ventilator 3.0 Nasal Cannula 08/16/18 23:00 89 13 100/52 (68) 100 08/16/18 22:24 99.5 08/16/18 22:00 101.2 85 14 105/64 (78) 100 08/16/18 21:37 Nasal Cannula 3.0 32 08/16/18 21:37 98 Nasal Cannula 3.0 32 08/16/18 21:00 93 13 115/61 (79) 100 08/16/18 20:00 Mechanical Ventilator 3.0 Nasal Cannula 08/16/18 20:00 82 08/16/18 20:00 93 17 116/56 (76) 99 08/16/18 19:00 94 13 118/74 (89) 96 08/16/18 18:00 125 18 121/73 (89) 100 08/16/18 17:00 85 12 111/63 (79) 100 08/16/18 16:00 98.7 78 11 99/60 (73) 100 08/16/18 16:00 83 08/16/18 16:00 Mechanical Ventilator 3.0 Nasal Cannula 08/16/18 15:00 75 18 112/44 (66) 100 08/16/18 14:00 84 20 94/59 (71) 100 08/16/18 13:15 Nasal Cannula 4.0 36 Intake and Output 08/16/18 08/17/18 18:59 06:59 Intake Total 1172.0 ml 500.000 ml Output Total 1400 ml 2930 ml Balance -228.0 ml -2430.000 ml IV Total 1172.0 ml 330.000 ml Other 170 ml Output Urine Total 1400 ml 2930 ml Laboratory Tests 08/17/18 04:00: Arterial Blood pH 7.431, Arterial Blood Partial Pressure CO2 38.4, Arterial Blood Partial Pressure O2 96.0, Arterial Blood HCO3 25.0, Arterial Blood Oxygen Saturation 97.2, Arterial Blood Base Excess 0.8, Santino Test Positive 08/17/18 06:55: White Blood Count 7.8, Red Blood Count 4.56L, Hemoglobin 13.8L, Hematocrit 40.9L , Mean Corpuscular Volume 90, Mean Corpuscular Hemoglobin 30.3, Mean Corpuscular Hemoglobin Concent 33.8, Red Cell Distribution Width 11.9, Platelet Count 177, Mean Platelet Volume 7.4, Neutrophils (%) (Auto) 73.3, Lymphocytes (% ) (Auto) 13.1L, Monocytes (%) (Auto) 12.8H, Eosinophils (%) (Auto) 0.1, Basophils (%) (Auto) 0.6, Erythrocyte Sedimentation Rate 30H, Sodium Level 136, Potassium Level 3.5, Chloride Level 98, Carbon Dioxide Level 27, Anion Gap 11, Blood Urea Nitrogen 8, Creatinine 1.2, Estimat Glomerular Filtration Rate > 60, Glucose Level 127H, Osmolality 284L, Uric Acid 2.9, Calcium Level 8.5, Phosphorus Level 2.3L, Magnesium Level 1.8, Total Bilirubin 0.7, Aspartate Amino Transf (AST/SGOT) 101H, Alanine Aminotransferase (ALT/SGPT) 52, Alkaline Phosphatase 70, C-Reactive Protein, Quantitative 19.7H, Total Protein 7.6, Albumin 3.7, Globulin 3.9, Albumin/Globulin Ratio 0.9L, Rapid Plasma Reagin [ Pending], Hepatitis A IgM Antibody [Pending], Hepatitis B Surface Antigen [ Pending], Hepatitis B Core IgM Antibody [Pending], Hepatitis C Antibody [Pending ], HIV-1 RNA (PCR) log10 Value [Pending], HIV-1 RNA Ultraquantitative (PCR) [ Pending], HIV (1&2) Antibody Rapid Negative Height (Feet): 6 Height (Inches): 0.00 Weight (Pounds): 165 General Appearance: no apparent distress Cardiovascular: normal rate Respiratory/Chest: decreased breath sounds Abdomen: soft Robbi Newton MD Aug 17, 2018 13:09
[2018-08-17] MEDS: Vancomycin 1.25gm Premix IVPB SCH ×2 (13:53→14:18)
--- NOTE | 2018-08-17 14:50 | NUR ---
TRANSFER TO FLOOR: Patient transferred to [id number], per airborn and contact precaution/ per protocol. Report given to Regina. Belongings and medications given to EDWAR Tapia at ext [phone]. Family and or S/O informed of transfer.
--- NOTE | 2018-08-17 15:11 | NUR ---
NURSE NOTES: Received patient asleep. responsive to stimuli. with soft wrist restraints on. NG tube intact. on O2 at 3LPM NC. with IV line to Right AC and LFA. with no sighs of infection noted. Scattered rash noted on chest area/torso area. Patient on airborne/contact isolation. Precautions observed. bed in lowest position. Will continue to monitor patient.
[2018-08-17] MEDS ORDERED: Haloperidol Lactate 5 MG in D5W 55 ML IVPB PRN (15:15)
[2018-08-17] MEDS ORDERED: Potassium Phosphate 30 MM in NS 275 ML IV SCH (15:17)
[2018-08-17] MEDS ORDERED: Gadavist 7.5mMol/7.5ml vial IV PRN (15:18)
[2018-08-17] MEDS ORDERED: LORazepam Inj 2mg/ml 1ml IV PRN (15:18)
[2018-08-17] MEDS ORDERED: Albuterol/Ipratropium 3ml neb HHN PRN (15:18)
[2018-08-17] MEDS ORDERED: Morphine Sulfate 4mg/ml Inj (IV USE ONLY) IVP PRN (15:18)
--- NOTE | 2018-08-17 15:59 | NUR ---
NURSE NOTES: Continuing K phos IV started in ICU. Pharmacist Selma johnson.
--- NOTE | 2018-08-17 16:21 | Internal Med Progress Note ---
Subjective Date of Service: Aug 17, 2018 Physician Name Kishor Maddox Attending Physician Cash Morel MD Current Medications Medications (Trade) Dose Ordered Sig/Olivia Route PRN Reason Start Time Stop Time Status Last Admin Dose Admin Acetaminophen (Tylenol) 650 mg Q4H PRN ORAL Fever 08/17/18 15:18 09/16/18 15:17 Albuterol/ Ipratropium (Albuterol/ Ipratropium) 3 ml Q4H PRN HHN Shortness of Breath 08/17/18 15:18 08/22/18 15:17 Ceftriaxone Sodium 2 gm/ Dextrose 55 ml @ 110 mls/hr EVERY 12 HOURS IVPB 08/17/18 21:00 08/23/18 12:59 Dextrose (Dextrose 50%) 25 ml Q30M PRN IV Hypoglycemia 08/17/18 15:30 09/14/18 07:59 Dextrose (Dextrose 50%) 50 ml Q30M PRN IV Hypoglycemia 08/17/18 15:30 09/14/18 07:59 Dextrose/ Electrolytes 1,000 ml @ 50 mls/hr Q20H IV 08/17/18 15:16 09/16/18 15:15 08/17/18 15:43 Gadobutrol (Gadavist) 7.5 mmol NOW PRN IV Radiology Procedure 08/17/18 15:18 08/17/18 23:59 Heparin Sodium (Porcine) (Heparin 5000 units/ml) 5,000 units EVERY 12 HOURS SUBQ 08/17/18 21:00 09/14/18 08:59 Lorazepam (Ativan 2mg/ml 1ml) 2 mg Q2H PRN IV agitation 08/17/18 15:18 08/24/18 15:17 Morphine Sulfate (Morphine Sulfate) 4 mg Q4H PRN IVP Severe Pain (Pain Scale 7-10) 08/17/18 15:18 08/24/18 15:17 Ondansetron HCl (Zofran) 4 mg Q6H PRN IVP Nausea & Vomiting 08/17/18 15:18 09/16/18 15:17 Pantoprazole (Protonix) 40 mg EVERY 12 HOURS IVP 08/17/18 21:00 09/14/18 20:59 Potassium Phosphate 30 mm/ Sodium Chloride 285 ml @ 47.5 mls/hr ONCE IV 08/17/18 15:17 08/17/18 17:00 08/17/18 15:17 Vancomycin HCl (Vanco rx to dose) 1 ea DAILY PRN MISC Per rx protocol 08/18/18 09:00 09/15/18 12:14 Vancomycin HCl/ Dextrose 275 ml @ 183.333 mls/hr Q6H IVPB 08/17/18 20:00 08/22/18 13:59 Allergies: Coded Allergies: No Known Allergies (Unverified , 05/24/17) UNABLE TO ASSESS (Unverified , 08/15/18) ROS Limited/Unobtainable: Yes Subjective 28 YO M admitted with alerted mental status and probable drug overdose. Now respiratory failure, hyponatremia and rhabdomyolysis. Cover for Int med-DR Morel. Objective Last Vital Signs Date Time Temp Pulse Resp B/P (MAP) Pulse Ox O2 Delivery O2 Flow Rate FiO2 08/17/18 16:00 98.8 85 20 110/64 (79) 100 08/17/18 16:00 Nasal Cannula 3.0 Nasal Cannula 3.0 08/17/18 08:13 32 Laboratory Tests Test 08/17/18 04:00 08/17/18 06:55 08/17/18 11:00 08/17/18 13:11 Arterial Blood pH 7.431 (7.350-7.450) Arterial Blood Partial Pressure CO2 38.4 mmHg (35.0-45.0) Arterial Blood Partial Pressure O2 96.0 mmHg (75.0-100.0) Arterial Blood HCO3 25.0 mmol/L (22.0-26.0) Arterial Blood Oxygen Saturation 97.2 % (95-100) Arterial Blood Base Excess 0.8 (-2-2) Santino Test Positive White Blood Count 7.8 K/UL (4.8-10.8) Red Blood Count 4.56 M/UL (4.70-6.10) L Hemoglobin 13.8 G/DL (14.2-18.0) L Hematocrit 40.9 % (42.0-52.0) L Mean Corpuscular Volume 90 FL (80-99) Mean Corpuscular Hemoglobin 30.3 PG (27.0-31.0) Mean Corpuscular Hemoglobin Concent 33.8 G/DL (32.0-36.0) Red Cell Distribution Width 11.9 % (11.6-14.8) Platelet Count 177 K/UL (150-450) Mean Platelet Volume 7.4 FL (6.5-10.1) Neutrophils (%) (Auto) 73.3 % (45.0-75.0) Lymphocytes (%) (Auto) 13.1 % (20.0-45.0) L Monocytes (%) (Auto) 12.8 % (1.0-10.0) H Eosinophils (%) (Auto) 0.1 % (0.0-3.0) Basophils (%) (Auto) 0.6 % (0.0-2.0) Erythrocyte Sedimentation Rate 30 MM/HR (0-15) H Sodium Level 136 MMOL/L (136-145) Potassium Level 3.5 MMOL/L (3.5-5.1) Chloride Level 98 MMOL/L (98-107) Carbon Dioxide Level 27 MMOL/L (21-32) Anion Gap 11 mmol/L (5-15) Blood Urea Nitrogen 8 mg/dL (7-18) Creatinine 1.2 MG/DL (0.55-1.30) Estimat Glomerular Filtration Rate > 60 mL/min (>60) Glucose Level 127 MG/DL (74-106) H Osmolality 284 mOsm/kg (297-317) L Uric Acid 2.9 MG/DL (2.6-7.2) Calcium Level 8.5 MG/DL (8.5-10.1) Phosphorus Level 2.3 MG/DL (2.5-4.9) L Magnesium Level 1.8 MG/DL (1.8-2.4) Total Bilirubin 0.7 MG/DL (0.2-1.0) Aspartate Amino Transf (AST/SGOT) 101 U/L (15-37) H Alanine Aminotransferase (ALT/SGPT) 52 U/L (12-78) Alkaline Phosphatase 70 U/L (46-116) C-Reactive Protein, Quantitative 19.7 mg/dL (0.00-0.90) H Total Protein 7.6 G/DL (6.4-8.2) Albumin 3.7 G/DL (3.4-5.0) Globulin 3.9 g/dL Albumin/Globulin Ratio 0.9 (1.0-2.7) L Rapid Plasma Reagin Pending Hepatitis A IgM Antibody Pending Hepatitis B Surface Antigen Pending Hepatitis B Core IgM Antibody Pending Hepatitis C Antibody Pending HIV-1 RNA (PCR) log10 Value Pending HIV-1 RNA Ultraquantitative (PCR) Pending HIV (1&2) Antibody Rapid Negative (NEGATIVE) CSF Appearance Clear (Clear) CSF Color Colorless (Colorless) CSF WBC 0 /CU MM (0-5) CSF RBC 2 /CU MM CSF Neutrophils % % CSF Lymphocytes % % CSF Monocytes % % CSF Crenated Cells 0 % CSF Glucose 81 mg/dL (40-70) H CSF Total Protein 30 MG/DL (15-45) CSF VDRL Pending Vancomycin Level Trough 8.8 ug/mL (5.0-12.0) Microbiology Date/Time Source Procedure Growth Status 08/15/18 04:30 Blood Blood Culture - Preliminary NO GROWTH AFTER 24 HOURS Resulted 08/15/18 04:15 Blood Blood Culture - Preliminary NO GROWTH AFTER 24 HOURS Resulted 08/15/18 04:20 Nasal Nares MRSA Culture - Final NO METHICILLIN RESISTANT STAPH AUREUS... Complete 08/15/18 04:20 Rectum - Final NO CARBAPENEM-RESISTANT ENTEROBACTERI... Complete 08/15/18 04:20 Rectum VRE Culture - Final NO VANCOMYCIN RESISTANT ENTEROCOCCUS ... Complete Intake and Output 08/16/18 08/17/18 18:59 06:59 Intake Total 1172.0 ml 500.000 ml Output Total 1400 ml 2930 ml Balance -228.0 ml -2430.000 ml IV Total 1172.0 ml 330.000 ml Other 170 ml Output Urine Total 1400 ml 2930 ml Objective General Appearance: WD/WN, lethargic EENT: PERRL/EOMI, normal ENT inspection Neck: non-tender, normal alignment, supple, normal inspection Cardiovascular: normal peripheral pulses, normal rate, regular rhythm, no gallop/murmur, no JVD Respiratory/Chest: Nasal canula; respiratory distress, accessory muscle use, crackles/rales, rhonchi - bilaterally, expiratory wheezing Abdomen: normal bowel sounds, non tender, soft, no organomegaly, no mass, abnormal bowel sounds Extremities: normal range of motion, non-tender Edema: trace edema Neurologic: clinical therapist II-XII grossly normal, disoriented Skin: normal pigmentation, warm/dry Assessment/Plan Problem List: (1) Seizure Assessment & Plan: Due to hyponatremia. See neurology note. (2) Hyponatremia Assessment & Plan: Slow sodium replacement IV (3) Hypokalemia (4) Acute respiratory failure Assessment & Plan: Cont mech vent per pulmonary (5) Acute metabolic encephalopathy (6) Rhabdomyolysis Assessment & Plan: See nephrology note. Cont IV fluids (7) Overdose Assessment & Plan: Possibly to ecstasy-hyponatremia and seizures Status: not improved Kishor Maddox MD Aug 17, 2018 16:21
--- NOTE | 2018-08-17 19:36 | NUR ---
HAND-OFF: Report given to EDWAR Thomas. Addendum: 08/17/18 at 1938 by TALISHA CARD RN patient noted with 102 deg Jason pitts, Dr. Peres/Pamela made aware. Awaiting response.
--- NOTE | 2018-08-17 19:42 | NUR ---
NURSE NOTES: Report received from EDWAR Lowery. Pt received lethargic and was very warm to touch. Bilateral soft wrist restraints in place. [address] NG tube in place. I took his temp at 102.0. Contacted Dr Santiago and informed him that tylenol is written as PO and pt is NPO with a GT. Dr Santiago said to contact Eugenia. Eugenia contacted and awaiting his response. Will continue to monitor patient and already initiated cooling measures. Pt was on a cooling blanket already. Addendum: 08/17/18 at 1953 by Leslie Stevens RN Notes Pt on 3 L NC and is in bed in lowest position locked, side rails x3. Scattered rash noted on chest area/torso area. Patient on airborne/droplet isolation. Precautions observed. bed in lowest position. Will continue to monitor patient
[2018-08-17] MEDS: Vancomycin 1.25gm Premix 275 ML IVPB SCH (20:00)
[2018-08-17] MEDS ORDERED: Acetaminophen 650mg/20.3ml NG PRN (20:23)
[2018-08-18] VITALS: BP 125/58
[2018-08-18] MEDS: Vancomycin 1.25gm Premix 275 ML IVPB SCH ×2 (01:26→08:00)
[2018-08-18 04:00] VITALS: BP 122/66
--- NOTE | 2018-08-18 07:54 | NUR ---
NURSE NOTES: Patient received resting in bed. Responds appropriately, NG-tube in place but NPO. IV site on left arm patent and intact, running fluids. Vásquez catheter in place. Bed locked in lowest position, call light placed within reach. Will continue to monitor.
[2018-08-18 08:00] VITALS: BP 117/69
[2018-08-18 08:04] LABS: BASOPHILS % (AUTO) 1.6 % (0.0-2.0); HEMOGLOBIN 13.2 G/DL (14.2-18.0); LYMPHOCYTES % (AUTO) 19.2 % (20.0-45.0); MEAN CORPUSCULAR VOLUME 90 FL (80-99); MONOCYTES % (AUTO) 13.9 % (1.0-10.0); NEUTROPHILS % (AUTO) 64.3 % (45.0-75.0); PLATELET COUNT 197 K/UL (150-450); RED BLOOD COUNT 4.32 M/UL (4.70-6.10); WHITE BLOOD COUNT 7.1 K/UL (4.8-10.8)
[2018-08-18 08:13] LABS: ALANINE AMINOTRANSFERASE 54 U/L (12-78); ALBUMIN 3.1 G/DL (3.4-5.0); ALBUMIN/GLOBULIN RATIO 0.9 (1.0-2.7); ALKALINE PHOSPHATASE 56 U/L (46-116); ANION GAP 8 mmol/L (5-15); ASPARTATE AMINO TRANSFERASE 75 U/L (15-37); BILIRUBIN,TOTAL 0.7 MG/DL (0.2-1.0); BLOOD UREA NITROGEN 6 mg/dL (7-18); CALCIUM 8.5 MG/DL (8.5-10.1); CARBON DIOXIDE 29 MMOL/L (21-32); CHLORIDE 102 MMOL/L (98-107); PHOSPHORUS 2.5 MG/DL (2.5-4.9); POTASSIUM 3.9 MMOL/L (3.5-5.1); SODIUM 139 MMOL/L (136-145)
[2018-08-18 08:24] LABS: CREATINE KINASE 4387 U/L (26-308)
[2018-08-18] MEDS: Pantoprazole Inj IVP SCH (08:32)
[2018-08-18] MEDS: cefTRIAXone 2 GM in D5W 55 ML IVPB SCH ×2 (09:00→20:14)
--- NOTE | 2018-08-18 09:34 | Infectious Diseases Prog Note ---
Assessment/Plan Assessment/Plan Abx: None Assessment: Sepsis -u/a neg -CXR: Left perihilar mild interstitial edema -Bcx p Viral syndrome Macular rash- Rash suggestive of measles given distribution but hx is limited and differential diagnosis is broad such as Measles, Acute HIV, Influenza, Meningococcemia/Meningococcal meningitis given altered mental status Acute encephalopathy s/p intubation for airway protection -CT head: Normal CT scan of the head without contrast material.Incidental finding of sinus disease -UDS, ethanol level neg - Now extuated LP 08/17/18 - WBCs 0, Prot 30, Glu 81 Lactic acidosis Seizure Hyponatremia DON, imroving Drug abuse HIV (-) Plan: -Continue empiric IV Vancomycin #3 and Ceftriaxone #3 to cover for meningitis -CSF cx, VDRL -f/u cx -Monitor CBC/CMP, temperatures -influenza sc -VL, RPR, hep panel, Measles IgG and IgM -Recommend Nuero eval -[facility] and have ordered throat and urine specimens for MEasles PCR to [facility] on Saturday. I have called the microbiology lab but no one answered so I placed an order of Lab request for Service with instructions about specimens collection and shipping. I called the lab again to day and the sample are being sent. Thank you for this consultation. Will continue to follow along with you. Subjective Allergies: Coded Allergies: No Known Allergies (Unverified , 05/24/17) UNABLE TO ASSESS (Unverified , 08/15/18) Subjective Patient now awake but tired Afebrile but had a fever of 102 last night Had LP yesterday No WBCs Objective Vital Signs Last 24 Hour Vital Signs Date Time Temp Pulse Resp B/P (MAP) Pulse Ox O2 Delivery O2 Flow Rate FiO2 08/18/18 07:50 97 Nasal Cannula 2.0 28 08/18/18 07:50 Nasal Cannula 2.0 28 08/18/18 04:00 98.3 83 18 122/66 (84) 98 08/18/18 04:00 Nasal Cannula 3.0 Nasal Cannula 3.0 08/18/18 00:00 Nasal Cannula 3.0 Nasal Cannula 3.0 08/18/18 00:00 99.5 90 18 125/58 (80) 99 08/17/18 21:33 99.8 08/17/18 21:33 99.8 08/17/18 20:00 Nasal Cannula 2.0 28 08/17/18 20:00 97 Nasal Cannula 2.0 28 08/17/18 20:00 102.0 99 18 115/55 (75) 97 08/17/18 20:00 Nasal Cannula 3.0 Nasal Cannula 3.0 08/17/18 16:00 98.8 85 20 110/64 (79) 100 08/17/18 16:00 Nasal Cannula 3.0 Nasal Cannula 3.0 08/17/18 14:00 97 15 104/63 (77) 100 08/17/18 13:01 79 17 107/65 (79) 99 08/17/18 12:00 Nasal Cannula 3.0 Nasal Cannula 3.0 08/17/18 12:00 81 15 114/51 (72) 99 08/17/18 12:00 84 08/17/18 11:00 83 17 113/57 (75) 100 08/17/18 10:00 81 14 98/53 (68) 98 Height (Feet): 6 Height (Inches): 0.00 Weight (Pounds): 130 Objective GENERAL: Awake and alert HEENT NCAT, MMM, EOMI LUNGS: CTAB, No W HEART: S1, S2. Regular rhythm. No gallops. ABDOMEN: Soft, nondistended, and nontender. Positive bowel sounds. NEUROLOGIC: Awake and alert/oriented x 4 SKIN: Diffuse macular rash/erythema in the face area, trunk area unchanged per nurse Microbiology Date/Time Source Procedure Growth Status 08/17/18 11:00 Cerebral Spinal Fluid Gram Stain Pending Resulted 08/17/18 11:00 Cerebral Spinal Fluid CSF Culture - Preliminary NO GROWTH AFTER 24 HOURS Resulted Laboratory Tests Test 08/17/18 11:00 08/17/18 13:11 08/18/18 07:35 CSF Appearance Clear (Clear) CSF Color Colorless (Colorless) CSF WBC 0 /CU MM (0-5) CSF RBC 2 /CU MM CSF Neutrophils % % CSF Lymphocytes % % CSF Monocytes % % CSF Crenated Cells 0 % CSF Glucose 81 mg/dL (40-70) H CSF Total Protein 30 MG/DL (15-45) CSF VDRL Pending Vancomycin Level Trough 8.8 ug/mL (5.0-12.0) White Blood Count 7.1 K/UL (4.8-10.8) Red Blood Count 4.32 M/UL (4.70-6.10) L Hemoglobin 13.2 G/DL (14.2-18.0) L Hematocrit 39.0 % (42.0-52.0) L Mean Corpuscular Volume 90 FL (80-99) Mean Corpuscular Hemoglobin 30.5 PG (27.0-31.0) Mean Corpuscular Hemoglobin Concent 33.7 G/DL (32.0-36.0) Red Cell Distribution Width 12.0 % (11.6-14.8) Platelet Count 197 K/UL (150-450) Mean Platelet Volume 7.1 FL (6.5-10.1) Neutrophils (%) (Auto) 64.3 % (45.0-75.0) Lymphocytes (%) (Auto) 19.2 % (20.0-45.0) L Monocytes (%) (Auto) 13.9 % (1.0-10.0) H Eosinophils (%) (Auto) 1.0 % (0.0-3.0) Basophils (%) (Auto) 1.6 % (0.0-2.0) Erythrocyte Sedimentation Rate 35 MM/HR (0-15) H Sodium Level 139 MMOL/L (136-145) Potassium Level 3.9 MMOL/L (3.5-5.1) Chloride Level 102 MMOL/L (98-107) Carbon Dioxide Level 29 MMOL/L (21-32) Anion Gap 8 mmol/L (5-15) Blood Urea Nitrogen 6 mg/dL (7-18) L Creatinine 1.0 MG/DL (0.55-1.30) Estimat Glomerular Filtration Rate > 60 mL/min (>60) Glucose Level 109 MG/DL (74-106) H Calcium Level 8.5 MG/DL (8.5-10.1) Phosphorus Level 2.5 MG/DL (2.5-4.9) Magnesium Level 1.8 MG/DL (1.8-2.4) Total Bilirubin 0.7 MG/DL (0.2-1.0) Aspartate Amino Transf (AST/SGOT) 75 U/L (15-37) H Alanine Aminotransferase (ALT/SGPT) 54 U/L (12-78) Alkaline Phosphatase 56 U/L (46-116) Total Creatine Kinase 4387 U/L (26-308) H C-Reactive Protein, Quantitative 10.3 mg/dL (0.00-0.90) H Total Protein 6.6 G/DL (6.4-8.2) Albumin 3.1 G/DL (3.4-5.0) L Globulin 3.5 g/dL Albumin/Globulin Ratio 0.9 (1.0-2.7) L Current Medications Medications (Trade) Dose Ordered Sig/Olivia Route PRN Reason Start Time Stop Time Status Last Admin Dose Admin Acetaminophen (Tylenol) 650 mg Q4H PRN NG Mild Pain/Temp > 100.5 08/17/18 20:23 09/16/18 20:22 08/17/18 21:03 Albuterol/ Ipratropium (Albuterol/ Ipratropium) 3 ml Q4H PRN HHN Shortness of Breath 08/17/18 15:18 08/22/18 15:17 Ceftriaxone Sodium 2 gm/ Dextrose 55 ml @ 110 mls/hr EVERY 12 HOURS IVPB 08/17/18 21:00 08/23/18 12:59 08/17/18 21:06 Dextrose (Dextrose 50%) 25 ml Q30M PRN IV Hypoglycemia 08/17/18 15:30 09/14/18 07:59 Dextrose (Dextrose 50%) 50 ml Q30M PRN IV Hypoglycemia 08/17/18 15:30 09/14/18 07:59 Dextrose/ Electrolytes 1,000 ml @ 50 mls/hr Q20H IV 08/17/18 15:16 09/16/18 15:15 08/17/18 15:43 Heparin Sodium (Porcine) (Heparin 5000 units/ml) 5,000 units EVERY 12 HOURS SUBQ 08/17/18 21:00 09/14/18 08:59 08/17/18 21:04 Lorazepam (Ativan 2mg/ml 1ml) 2 mg Q2H PRN IV agitation 08/17/18 15:18 08/24/18 15:17 Morphine Sulfate (Morphine Sulfate) 4 mg Q4H PRN IVP Severe Pain (Pain Scale 7-10) 08/17/18 15:18 08/24/18 15:17 Ondansetron HCl (Zofran) 4 mg Q6H PRN IVP Nausea & Vomiting 08/17/18 15:18 09/16/18 15:17 Pantoprazole (Protonix) 40 mg EVERY 12 HOURS IVP 08/17/18 21:00 09/14/18 20:59 08/18/18 08:32 Vancomycin HCl (Vanco rx to dose) 1 ea DAILY PRN MISC Per rx protocol 08/18/18 09:00 09/15/18 12:14 Vancomycin HCl/ Dextrose 275 ml @ 183.333 mls/hr Q6H IVPB 08/17/18 20:00 08/22/18 13:59 08/18/18 08:00 Marcio Gu MD Aug 18, 2018 09:34
[2018-08-18] MEDS: Heparin 5000 units/ml inj SUBQ SCH ×2 (09:39→20:24)
[2018-08-18 12:00] VITALS: BP 118/72
--- NOTE | 2018-08-18 12:35 | Cardiology Report ---
APPROVED REPORT EXAM: Two-dimensional and M-mode echocardiogram with Doppler and color Doppler. INDICATION LV FUNCTION M-Mode DIMENSIONS IVSd1.0 (0.7-1.1cm)Left Atrium (MM)2.0 (1.6-4.0cm) LVDd5.0 (3.5-5.6cm)Aortic Root3.9 (2.0-3.7cm) PWd0.8 (0.7-1.1cm)Aortic Cusp Exc.2.1 (1.5-2.0cm) IVSs1.1 cm LVDs3.5 (2.5-4.0cm) PWs1.4 cm Normal left ventricular chamber size, systolic function and wall motion . Left ventricular ejection fraction estimated to be 55-60%. No evidence of left ventricular hypertrophy . No evidence of pericardial effusion. All other cardiac chamber sizes are within normal limits. Aortic valve calcification with normal cusp excursion . Mildly thickened mitral valve leaflets with normal excursion. Mild mitral annulus and aortic root calcification. Pulmonic valve not well visualized. IVC at normal size with physiological collapse . A color flow and spectral Doppler study was performed and revealed: No aortic insufficiency . Normal left ventricular diastolic function. Trace mitral regurgitation. Trace tricuspid regurgitation. Tricuspid systolic velocities suggests peak right ventricular systolic pressure of 13mmHg.
--- NOTE | 2018-08-18 13:26 | Pulmonology Progress Note ---
Assessment/Plan Problems: (1) Acute metabolic encephalopathy (2) Acute respiratory failure (3) Drug abuse Assessment/Plan -Continue empiric IV Vancomycin #3 and Ceftriaxone #3 to cover for meningitis f/u cultures symptomatic treatment Subjective ROS Limited/Unobtainable: No Constitutional: Reports: no symptoms HEENT: Repors: no symptoms Allergies: Coded Allergies: No Known Allergies (Unverified , 05/24/17) UNABLE TO ASSESS (Unverified , 08/15/18) Objective Last 24 Hour Vital Signs Date Time Temp Pulse Resp B/P (MAP) Pulse Ox O2 Delivery O2 Flow Rate FiO2 08/18/18 08:00 Nasal Cannula 3.0 Nasal Cannula 3.0 08/18/18 07:50 97 Nasal Cannula 2.0 28 08/18/18 07:50 Nasal Cannula 2.0 28 08/18/18 04:00 98.3 83 18 122/66 (84) 98 08/18/18 04:00 Nasal Cannula 3.0 Nasal Cannula 3.0 08/18/18 00:00 Nasal Cannula 3.0 Nasal Cannula 3.0 08/18/18 00:00 99.5 90 18 125/58 (80) 99 08/17/18 21:33 99.8 08/17/18 21:33 99.8 08/17/18 20:00 Nasal Cannula 2.0 28 08/17/18 20:00 97 Nasal Cannula 2.0 28 08/17/18 20:00 102.0 99 18 115/55 (75) 97 08/17/18 20:00 Nasal Cannula 3.0 Nasal Cannula 3.0 08/17/18 16:00 98.8 85 20 110/64 (79) 100 08/17/18 16:00 Nasal Cannula 3.0 Nasal Cannula 3.0 08/17/18 14:00 97 15 104/63 (77) 100 Intake and Output 08/17/18 08/18/18 19:00 07:00 Intake Total 772.5 ml 985.000 ml Output Total 740 ml 550 ml Balance 32.5 ml 435.000 ml IV Total 352.5 ml 955.000 ml Other 420 ml 30 ml Output Urine Total 740 ml 550 ml General Appearance: WD/WN HEENT: normocephalic, anicteric Cardiovascular: normal rate Abdomen: normal bowel sounds, no organomegaly Genitourinary: normal external genitalia Skin: no rash Microbiology Date/Time Source Procedure Growth Status 08/17/18 11:00 Cerebral Spinal Fluid Gram Stain - Final Resulted 08/17/18 11:00 Cerebral Spinal Fluid CSF Culture - Preliminary NO GROWTH AFTER 24 HOURS Resulted Laboratory Tests 08/18/18 07:35: White Blood Count 7.1, Red Blood Count 4.32L, Hemoglobin 13.2L, Hematocrit 39.0L , Mean Corpuscular Volume 90, Mean Corpuscular Hemoglobin 30.5, Mean Corpuscular Hemoglobin Concent 33.7, Red Cell Distribution Width 12.0, Platelet Count 197, Mean Platelet Volume 7.1, Neutrophils (%) (Auto) 64.3, Lymphocytes (% ) (Auto) 19.2L, Monocytes (%) (Auto) 13.9H, Eosinophils (%) (Auto) 1.0, Basophils (%) (Auto) 1.6, Erythrocyte Sedimentation Rate 35H, Sodium Level 139, Potassium Level 3.9, Chloride Level 102, Carbon Dioxide Level 29, Anion Gap 8, Blood Urea Nitrogen 6L, Creatinine 1.0, Estimat Glomerular Filtration Rate > 60 , Glucose Level 109H, Calcium Level 8.5, Phosphorus Level 2.5, Magnesium Level 1.8, Total Bilirubin 0.7, Aspartate Amino Transf (AST/SGOT) 75H, Alanine Aminotransferase (ALT/SGPT) 54, Alkaline Phosphatase 56, Total Creatine Kinase 4387H, C-Reactive Protein, Quantitative 10.3H, Total Protein 6.6, Albumin 3.1L, Globulin 3.5, Albumin/Globulin Ratio 0.9L 08/18/18 12:50: Vancomycin Level Trough [Pending] Current Medications Medications (Trade) Dose Ordered Sig/Olivia Route PRN Reason Start Time Stop Time Status Last Admin Dose Admin Acetaminophen (Tylenol) 650 mg Q4H PRN NG Mild Pain/Temp > 100.5 08/17/18 20:23 09/16/18 20:22 08/17/18 21:03 Albuterol/ Ipratropium (Albuterol/ Ipratropium) 3 ml Q4H PRN HHN Shortness of Breath 08/17/18 15:18 08/22/18 15:17 Ceftriaxone Sodium 2 gm/ Dextrose 55 ml @ 110 mls/hr EVERY 12 HOURS IVPB 08/17/18 21:00 08/23/18 12:59 08/18/18 09:00 Dextrose (Dextrose 50%) 25 ml Q30M PRN IV Hypoglycemia 08/17/18 15:30 09/14/18 07:59 Dextrose (Dextrose 50%) 50 ml Q30M PRN IV Hypoglycemia 08/17/18 15:30 09/14/18 07:59 Dextrose/ Electrolytes 1,000 ml @ 50 mls/hr Q20H IV 08/17/18 15:16 09/16/18 15:15 08/17/18 15:43 Heparin Sodium (Porcine) (Heparin 5000 units/ml) 5,000 units EVERY 12 HOURS SUBQ 08/17/18 21:00 09/14/18 08:59 08/18/18 09:39 Lorazepam (Ativan 2mg/ml 1ml) 2 mg Q2H PRN IV agitation 08/17/18 15:18 08/24/18 15:17 Morphine Sulfate (Morphine Sulfate) 4 mg Q4H PRN IVP Severe Pain (Pain Scale 7-10) 08/17/18 15:18 08/24/18 15:17 Ondansetron HCl (Zofran) 4 mg Q6H PRN IVP Nausea & Vomiting 08/17/18 15:18 09/16/18 15:17 Pantoprazole (Protonix) 40 mg EVERY 12 HOURS IVP 08/17/18 21:00 09/14/18 20:59 08/18/18 08:32 Vancomycin HCl (Vanco rx to dose) 1 ea DAILY PRN MISC Per rx protocol 08/18/18 09:00 09/15/18 12:14 Vancomycin HCl/ Dextrose 275 ml @ 183.333 mls/hr Q6H IVPB 08/17/18 20:00 08/22/18 13:59 08/18/18 08:00 Dhruv Santiago MD Aug 18, 2018 13:25
--- NOTE | 2018-08-18 14:05 | NUR ---
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 HYPONATREMIA . HYPOKALEMIA VS: BP 115/55, P 99, T 102.0, RR 18, SpO2 97 on 3.0L O2 NC BUN 6, RBC 4.32, Hgb 13.2, Hct 39.0 IS:CEFTRIAXONE 55ml IVPB HEPARIN SUBQ PROTONIX 40mg VANCOMYCIN 275 ml IVPB MED/SURG STATUS
--- NOTE | 2018-08-18 14:29 | Nephrology Progress Note ---
Assessment/Plan Problem List: (1) Hyponatremia (2) Hypokalemia (3) Acute respiratory failure (4) Sepsis Assessment Hyponatremia likely SIADH Encephalopathy Hypokalemia Respiratory failure acute lactic acidosis / sepsis / Rash Sz Plan Dc barron and NGt start clear liquids St eval monitor CK D5NS DC barron NGT Mag and Phos , K supplement as needed Vent support Per ID Subjective ROS Limited/Unobtainable: No Objective Objective Last 24 Hour Vital Signs Date Time Temp Pulse Resp B/P (MAP) Pulse Ox O2 Delivery O2 Flow Rate FiO2 08/18/18 12:00 Nasal Cannula 3.0 Nasal Cannula 3.0 08/18/18 12:00 98.5 76 17 118/72 (87) 98 08/18/18 08:00 Nasal Cannula 3.0 Nasal Cannula 3.0 08/18/18 08:00 97.9 81 17 117/69 (85) 99 08/18/18 07:50 97 Nasal Cannula 2.0 28 08/18/18 07:50 Nasal Cannula 2.0 28 08/18/18 04:00 98.3 83 18 122/66 (84) 98 08/18/18 04:00 Nasal Cannula 3.0 Nasal Cannula 3.0 08/18/18 00:00 Nasal Cannula 3.0 Nasal Cannula 3.0 08/18/18 00:00 99.5 90 18 125/58 (80) 99 08/17/18 21:33 99.8 08/17/18 21:33 99.8 08/17/18 20:00 Nasal Cannula 2.0 28 08/17/18 20:00 97 Nasal Cannula 2.0 28 08/17/18 20:00 102.0 99 18 115/55 (75) 97 08/17/18 20:00 Nasal Cannula 3.0 Nasal Cannula 3.0 08/17/18 16:00 98.8 85 20 110/64 (79) 100 08/17/18 16:00 Nasal Cannula 3.0 Nasal Cannula 3.0 Intake and Output 08/17/18 08/18/18 18:59 06:59 Intake Total 722.5 ml 1035.000 ml Output Total 820 ml 550 ml Balance -97.5 ml 485.000 ml IV Total 302.5 ml 1005.000 ml Other 420 ml 30 ml Output Urine Total 820 ml 550 ml Laboratory Tests 08/18/18 07:35: White Blood Count 7.1, Red Blood Count 4.32L, Hemoglobin 13.2L, Hematocrit 39.0L , Mean Corpuscular Volume 90, Mean Corpuscular Hemoglobin 30.5, Mean Corpuscular Hemoglobin Concent 33.7, Red Cell Distribution Width 12.0, Platelet Count 197, Mean Platelet Volume 7.1, Neutrophils (%) (Auto) 64.3, Lymphocytes (% ) (Auto) 19.2L, Monocytes (%) (Auto) 13.9H, Eosinophils (%) (Auto) 1.0, Basophils (%) (Auto) 1.6, Erythrocyte Sedimentation Rate 35H, Sodium Level 139, Potassium Level 3.9, Chloride Level 102, Carbon Dioxide Level 29, Anion Gap 8, Blood Urea Nitrogen 6L, Creatinine 1.0, Estimat Glomerular Filtration Rate > 60 , Glucose Level 109H, Calcium Level 8.5, Phosphorus Level 2.5, Magnesium Level 1.8, Total Bilirubin 0.7, Aspartate Amino Transf (AST/SGOT) 75H, Alanine Aminotransferase (ALT/SGPT) 54, Alkaline Phosphatase 56, Total Creatine Kinase 4387H, C-Reactive Protein, Quantitative 10.3H, Total Protein 6.6, Albumin 3.1L, Globulin 3.5, Albumin/Globulin Ratio 0.9L 08/18/18 12:50: Vancomycin Level Trough 21.8H Height (Feet): 6 Height (Inches): 0.00 Weight (Pounds): 130 General Appearance: no apparent distress Cardiovascular: normal rate Respiratory/Chest: decreased breath sounds Abdomen: soft Robbi Newton MD Aug 18, 2018 14:29
--- NOTE | 2018-08-18 14:58 | Neurology Progress Note ---
Interim History Interim History ROS Limited/Unobtainable: Yes Complaints: AMS Events: Extubated, able to say his own name, confused, moving all 4 in bed Interim History No overnight events other than transfer out of ICU to floor - still in negative pressure room isolation Review of Systems All Systems: reviewed and negative except above Objective Physical Exam Last Vital Signs Date Time Temp Pulse Resp B/P (MAP) Pulse Ox O2 Delivery O2 Flow Rate FiO2 08/18/18 12:00 Nasal Cannula 3.0 Nasal Cannula 3.0 08/18/18 12:00 98.5 76 17 118/72 (87) 98 08/18/18 07:50 28 Laboratory Tests Test 08/18/18 07:35 08/18/18 12:50 White Blood Count 7.1 K/UL (4.8-10.8) Red Blood Count 4.32 M/UL (4.70-6.10) L Hemoglobin 13.2 G/DL (14.2-18.0) L Hematocrit 39.0 % (42.0-52.0) L Mean Corpuscular Volume 90 FL (80-99) Mean Corpuscular Hemoglobin 30.5 PG (27.0-31.0) Mean Corpuscular Hemoglobin Concent 33.7 G/DL (32.0-36.0) Red Cell Distribution Width 12.0 % (11.6-14.8) Platelet Count 197 K/UL (150-450) Mean Platelet Volume 7.1 FL (6.5-10.1) Neutrophils (%) (Auto) 64.3 % (45.0-75.0) Lymphocytes (%) (Auto) 19.2 % (20.0-45.0) L Monocytes (%) (Auto) 13.9 % (1.0-10.0) H Eosinophils (%) (Auto) 1.0 % (0.0-3.0) Basophils (%) (Auto) 1.6 % (0.0-2.0) Erythrocyte Sedimentation Rate 35 MM/HR (0-15) H Sodium Level 139 MMOL/L (136-145) Potassium Level 3.9 MMOL/L (3.5-5.1) Chloride Level 102 MMOL/L (98-107) Carbon Dioxide Level 29 MMOL/L (21-32) Anion Gap 8 mmol/L (5-15) Blood Urea Nitrogen 6 mg/dL (7-18) L Creatinine 1.0 MG/DL (0.55-1.30) Estimat Glomerular Filtration Rate > 60 mL/min (>60) Glucose Level 109 MG/DL (74-106) H Calcium Level 8.5 MG/DL (8.5-10.1) Phosphorus Level 2.5 MG/DL (2.5-4.9) Magnesium Level 1.8 MG/DL (1.8-2.4) Total Bilirubin 0.7 MG/DL (0.2-1.0) Aspartate Amino Transf (AST/SGOT) 75 U/L (15-37) H Alanine Aminotransferase (ALT/SGPT) 54 U/L (12-78) Alkaline Phosphatase 56 U/L (46-116) Total Creatine Kinase 4387 U/L (26-308) H C-Reactive Protein, Quantitative 10.3 mg/dL (0.00-0.90) H Total Protein 6.6 G/DL (6.4-8.2) Albumin 3.1 G/DL (3.4-5.0) L Globulin 3.5 g/dL Albumin/Globulin Ratio 0.9 (1.0-2.7) L Vancomycin Level Trough 21.8 ug/mL (5.0-12.0) H Neurologic Exam Mental Status: awake, other - Disorientated, minimally verbal, agitated with difficulty focusing on exam . Speech: other Language: other Cranial Nerves III, IV, : PERRLA, EOMI Cranial Nerve VII: no facial asymmetry Cranial Nerve VIII: normal hearing Cranial Nerve XI: SCM symmetric Cranial Nerve XII: tongue midline Motor System: normal muscle tone, strength 5/5 Sensory: normal light touch Gait: other - Broad based ataxic gait with imbalance on ambulation Impression/Recommendations Problems: (1) Hyponatremia Assessment & Plan: Slowly correct Na to 135-145 with IVF (2) Hypokalemia Assessment & Plan: Correct/ replete as appropriate. (3) Acute respiratory failure Assessment & Plan: RT follow up PT/OT as able. (4) Acute metabolic encephalopathy Assessment & Plan: AMS secondary to hyponatremia/ hypokalemia/ rhabdomyolysis IVF with correction of lytes Q4 hour neuro checks Maintain Normothermia Maintain normoglycemia with ISS as needed. CT Brain NAD LP Glucose elevated but no other abnormalities seen MRI Brain ordered Psych consult recommended Status: stable, not improved Diagnostic Impression Patient still appears to have some cognitive slowing/ impairment Appears to be incontinent of feces/urine secondary to confusion Is ambulating- keeps removing IVs with Abx treatment Recommendations Psych consult MRI Brain Kiana Shaikh N.P. Aug 18, 2018 14:58
--- NOTE | 2018-08-18 16:27 | NUR ---
*-* INSURANCE *-* ALL CLINICALS AND REVIEW FAXED TO: [facility] P:[phone] F:[phone] RE#[id number]
[2018-08-18] MEDS: Vancomycin 1gm/D5W 275ml IVPB SCH ×2 (18:21)
--- NOTE | 2018-08-18 19:31 | Cardiology Report ---
APPROVED REPORT EKG Measurement Heart [id number] CT [id number] Normal sinus rhythm Normal ECG
--- NOTE | 2018-08-18 19:40 | NUR ---
HAND-OFF: Report given to Leslie VANN.
--- NOTE | 2018-08-18 19:41 | NUR ---
NURSE NOTES: Patient received resting in bed in supine position. Responds appropriately, oriented and alert and appropriately responsive. NG-tube in place but NPO. IV site on left upper arm patent and intact, running fluids. Bed locked in lowest position, side rails x2. call light placed within reach, urinal to void at bedside. Will continue to monitor.
[2018-08-18 20:00] VITALS: BP 109/64
--- NOTE | 2018-08-18 20:41 | Internal Med Progress Note ---
Subjective Date of Service: Aug 18, 2018 Physician Name Kishor Maddox Attending Physician Cash Morel MD Current Medications Medications (Trade) Dose Ordered Sig/Olivia Route PRN Reason Start Time Stop Time Status Last Admin Dose Admin Acetaminophen (Tylenol) 650 mg Q4H PRN NG Mild Pain/Temp > 100.5 08/17/18 20:23 09/16/18 20:22 08/17/18 21:03 Albuterol/ Ipratropium (Albuterol/ Ipratropium) 3 ml Q4H PRN HHN Shortness of Breath 08/17/18 15:18 08/22/18 15:17 Ceftriaxone Sodium 2 gm/ Dextrose 55 ml @ 110 mls/hr EVERY 12 HOURS IVPB 08/17/18 21:00 08/23/18 12:59 08/18/18 20:14 Dextrose (Dextrose 50%) 25 ml Q30M PRN IV Hypoglycemia 08/17/18 15:30 09/14/18 07:59 Dextrose (Dextrose 50%) 50 ml Q30M PRN IV Hypoglycemia 08/17/18 15:30 09/14/18 07:59 Dextrose/ Electrolytes 1,000 ml @ 50 mls/hr Q20H IV 08/17/18 15:16 09/16/18 15:15 08/18/18 11:16 Heparin Sodium (Porcine) (Heparin 5000 units/ml) 5,000 units EVERY 12 HOURS SUBQ 08/17/18 21:00 09/14/18 08:59 08/18/18 20:24 Lorazepam (Ativan 2mg/ml 1ml) 2 mg Q2H PRN IV agitation 08/17/18 15:18 08/24/18 15:17 Morphine Sulfate (Morphine Sulfate) 4 mg Q4H PRN IVP Severe Pain (Pain Scale 7-10) 08/17/18 15:18 08/24/18 15:17 Ondansetron HCl (Zofran) 4 mg Q6H PRN IVP Nausea & Vomiting 08/17/18 15:18 09/16/18 15:17 Pantoprazole (Protonix) 40 mg DAILY IVP 08/19/18 09:00 09/14/18 20:59 Vancomycin HCl (Vanco rx to dose) 1 ea DAILY PRN MISC Per rx protocol 08/18/18 09:00 09/15/18 12:14 Vancomycin HCl 1 gm/Dextrose 275 ml @ 183.708 mls/hr Q6HR IVPB 08/18/18 18:00 08/23/18 17:59 08/18/18 18:21 Allergies: Coded Allergies: No Known Allergies (Unverified , 05/24/17) UNABLE TO ASSESS (Unverified , 08/15/18) ROS Limited/Unobtainable: Yes Subjective 28 YO M admitted with alerted mental status and probable drug overdose. Now respiratory failure, hyponatremia and rhabdomyolysis. Cover for Int med-DR Morel. Objective Last Vital Signs Date Time Temp Pulse Resp B/P (MAP) Pulse Ox O2 Delivery O2 Flow Rate FiO2 08/18/18 20:31 94 Room Air 21 08/18/18 16:00 3.0 3.0 08/18/18 12:00 98.5 76 17 118/72 (87) Laboratory Tests Test 08/18/18 07:35 08/18/18 12:50 White Blood Count 7.1 K/UL (4.8-10.8) Red Blood Count 4.32 M/UL (4.70-6.10) L Hemoglobin 13.2 G/DL (14.2-18.0) L Hematocrit 39.0 % (42.0-52.0) L Mean Corpuscular Volume 90 FL (80-99) Mean Corpuscular Hemoglobin 30.5 PG (27.0-31.0) Mean Corpuscular Hemoglobin Concent 33.7 G/DL (32.0-36.0) Red Cell Distribution Width 12.0 % (11.6-14.8) Platelet Count 197 K/UL (150-450) Mean Platelet Volume 7.1 FL (6.5-10.1) Neutrophils (%) (Auto) 64.3 % (45.0-75.0) Lymphocytes (%) (Auto) 19.2 % (20.0-45.0) L Monocytes (%) (Auto) 13.9 % (1.0-10.0) H Eosinophils (%) (Auto) 1.0 % (0.0-3.0) Basophils (%) (Auto) 1.6 % (0.0-2.0) Erythrocyte Sedimentation Rate 35 MM/HR (0-15) H Sodium Level 139 MMOL/L (136-145) Potassium Level 3.9 MMOL/L (3.5-5.1) Chloride Level 102 MMOL/L (98-107) Carbon Dioxide Level 29 MMOL/L (21-32) Anion Gap 8 mmol/L (5-15) Blood Urea Nitrogen 6 mg/dL (7-18) L Creatinine 1.0 MG/DL (0.55-1.30) Estimat Glomerular Filtration Rate > 60 mL/min (>60) Glucose Level 109 MG/DL (74-106) H Calcium Level 8.5 MG/DL (8.5-10.1) Phosphorus Level 2.5 MG/DL (2.5-4.9) Magnesium Level 1.8 MG/DL (1.8-2.4) Total Bilirubin 0.7 MG/DL (0.2-1.0) Aspartate Amino Transf (AST/SGOT) 75 U/L (15-37) H Alanine Aminotransferase (ALT/SGPT) 54 U/L (12-78) Alkaline Phosphatase 56 U/L (46-116) Total Creatine Kinase 4387 U/L (26-308) H C-Reactive Protein, Quantitative 10.3 mg/dL (0.00-0.90) H Total Protein 6.6 G/DL (6.4-8.2) Albumin 3.1 G/DL (3.4-5.0) L Globulin 3.5 g/dL Albumin/Globulin Ratio 0.9 (1.0-2.7) L Vancomycin Level Trough 21.8 ug/mL (5.0-12.0) H Microbiology Date/Time Source Procedure Growth Status 08/17/18 11:00 Cerebral Spinal Fluid Gram Stain - Final Resulted 08/17/18 11:00 Cerebral Spinal Fluid CSF Culture - Preliminary NO GROWTH AFTER 24 HOURS Resulted Intake and Output 08/17/18 08/18/18 18:59 06:59 Intake Total 722.5 ml 1035.000 ml Output Total 820 ml 550 ml Balance -97.5 ml 485.000 ml IV Total 302.5 ml 1005.000 ml Other 420 ml 30 ml Output Urine Total 820 ml 550 ml Objective General Appearance: WD/WN, lethargic EENT: PERRL/EOMI, normal ENT inspection Neck: non-tender, normal alignment, supple, normal inspection Cardiovascular: normal peripheral pulses, normal rate, regular rhythm, no gallop/murmur, no JVD Respiratory/Chest: Nasal canula; respiratory distress, accessory muscle use, crackles/rales, rhonchi - bilaterally, expiratory wheezing Abdomen: normal bowel sounds, non tender, soft, no organomegaly, no mass, abnormal bowel sounds Extremities: normal range of motion, non-tender Edema: trace edema Neurologic: senior business manager II-XII grossly normal, disoriented Skin: normal pigmentation, warm/dry Assessment/Plan Problem List: (1) Seizure Assessment & Plan: Due to hyponatremia. See neurology note. (2) Hyponatremia Assessment & Plan: Slow sodium replacement IV (3) Hypokalemia (4) Acute respiratory failure Assessment & Plan: Cont mech vent per pulmonary (5) Acute metabolic encephalopathy (6) Rhabdomyolysis Assessment & Plan: See nephrology note. Cont IV fluids (7) Overdose Assessment & Plan: Possibly to ecstasy-hyponatremia and seizures Status: progressing Kishor Maddox MD Aug 18, 2018 20:41
[2018-08-19] MEDS: Vancomycin 1gm/D5W 275ml IVPB SCH ×8 (00:05→17:59)
[2018-08-19 00:14] VITALS: BP 105/67
[2018-08-19 06:44] LABS: BASOPHILS % (AUTO) 0.6 % (0.0-2.0); EOSINOPHILS % (AUTO) 1.3 % (0.0-3.0); HEMATOCRIT 37.1 % (42.0-52.0); HEMOGLOBIN 12.5 G/DL (14.2-18.0); LYMPHOCYTES % (AUTO) 28.1 % (20.0-45.0); MEAN CORPUSCULAR VOLUME 90 FL (80-99); MONOCYTES % (AUTO) 10.7 % (1.0-10.0); NEUTROPHILS % (AUTO) 59.3 % (45.0-75.0); PLATELET COUNT 227 K/UL (150-450); RED BLOOD COUNT 4.12 M/UL (4.70-6.10); RED CELL DISTRIBUTION WIDTH 11.9 % (11.6-14.8); WHITE BLOOD COUNT 6.4 K/UL (4.8-10.8)
[2018-08-19 07:18] LABS: ALANINE AMINOTRANSFERASE 51 U/L (12-78); ALBUMIN/GLOBULIN RATIO 0.9 (1.0-2.7); ALKALINE PHOSPHATASE 50 U/L (46-116); ANION GAP 9 mmol/L (5-15); ASPARTATE AMINO TRANSFERASE 60 U/L (15-37); BILIRUBIN,TOTAL 0.4 MG/DL (0.2-1.0); BLOOD UREA NITROGEN 7 mg/dL (7-18); CALCIUM 8.6 MG/DL (8.5-10.1); CARBON DIOXIDE 28 MMOL/L (21-32); CHLORIDE 103 MMOL/L (98-107); CREATINE KINASE 2528 U/L (26-308); CREATININE 0.9 MG/DL (0.55-1.30); GAMMA GLUTAMYL TRANSPEPTIDASE 12 U/L (5-85); PHOSPHORUS 3.2 MG/DL (2.5-4.9); POTASSIUM 3.5 MMOL/L (3.5-5.1); SODIUM 140 MMOL/L (136-145)
--- NOTE | 2018-08-19 07:20 | NUR ---
HAND-OFF: Report given to EDWAR Escobar.
[2018-08-19 08:00] VITALS: BP 114/59
--- NOTE | 2018-08-19 08:38 | Infectious Diseases Prog Note ---
Assessment/Plan Assessment/Plan Abx: None Assessment: Sepsis -u/a neg -CXR: Left perihilar mild interstitial edema -Bcx p Viral syndrome Macular rash- Rash suggestive of measles given distribution but hx is limited and differential diagnosis is broad such as Measles, Acute HIV, Influenza, Meningococcemia/Meningococcal meningitis given altered mental status Rubeola IgM (-) IgG (+) - Patient reports getting childhood vaccinations Acute encephalopathy s/p intubation for airway protection -CT head: Normal CT scan of the head without contrast material.Incidental finding of sinus disease -UDS, ethanol level neg - Now extuated LP 08/17/18 - WBCs 0, Prot 30, Glu 81 Lactic acidosis Seizure Hyponatremia DON, improving Drug abuse HIV (-) Plan: - f/u -CSF cx, VDRL 08/19/18 S/P Vancomycin #4 and Ceftriaxone #4 to cover for meningitis -f/u cx -Monitor CBC/CMP, temperatures -influenza sc -VL, RPR -We have contacted [facility] Dept of Health and have ordered throat and urine specimens for MEasles PCR to be sent to Dept of Health. Will continue to follow along with you. Subjective Allergies: Coded Allergies: No Known Allergies (Unverified , 05/24/17) UNABLE TO ASSESS (Unverified , 08/15/18) Subjective Patient now awake but tired Low grade fever of 100.6 last night now aferbile No Leukocytosis Objective Vital Signs Last 24 Hour Vital Signs Date Time Temp Pulse Resp B/P (MAP) Pulse Ox O2 Delivery O2 Flow Rate FiO2 08/19/18 07:55 Nasal Cannula 3.0 32 08/19/18 07:55 98 Nasal Cannula 3.0 32 08/19/18 04:15 Nasal Cannula 3.0 Nasal Cannula 3.0 08/19/18 00:14 99.2 77 19 105/67 (80) 96 08/18/18 23:57 Nasal Cannula 3.0 Nasal Cannula 3.0 08/18/18 20:31 94 Room Air 21 08/18/18 20:31 Room Air 21 08/18/18 20:00 100.6 85 18 109/64 (79) 96 08/18/18 20:00 Nasal Cannula 3.0 Nasal Cannula 3.0 08/18/18 16:00 Nasal Cannula 3.0 Nasal Cannula 3.0 08/18/18 12:00 Nasal Cannula 3.0 Nasal Cannula 3.0 08/18/18 12:00 98.5 76 17 118/72 (87) 98 Height (Feet): 6 Height (Inches): 0.00 Weight (Pounds): 132 Objective GENERAL: Awake and alert HEENT NCAT, MMM, EOMI LUNGS: CTAB, No W HEART: S1, S2. Regular rhythm. No gallops. ABDOMEN: Soft, nondistended, and nontender. Positive bowel sounds. NEUROLOGIC: Awake and alert/oriented x 4 SKIN: Diffuse macular rash/erythema in the face area, trunk area improved a little Microbiology Date/Time Source Procedure Growth Status 08/17/18 11:00 Cerebral Spinal Fluid Gram Stain - Final Resulted 08/17/18 11:00 Cerebral Spinal Fluid CSF Culture - Preliminary NO GROWTH AFTER 24 HOURS Resulted Laboratory Tests Test 08/18/18 12:50 08/19/18 05:15 Vancomycin Level Trough 21.8 ug/mL (5.0-12.0) H White Blood Count 6.4 K/UL (4.8-10.8) Red Blood Count 4.12 M/UL (4.70-6.10) L Hemoglobin 12.5 G/DL (14.2-18.0) L Hematocrit 37.1 % (42.0-52.0) L Mean Corpuscular Volume 90 FL (80-99) Mean Corpuscular Hemoglobin 30.3 PG (27.0-31.0) Mean Corpuscular Hemoglobin Concent 33.7 G/DL (32.0-36.0) Red Cell Distribution Width 11.9 % (11.6-14.8) Platelet Count 227 K/UL (150-450) Mean Platelet Volume 7.9 FL (6.5-10.1) Neutrophils (%) (Auto) 59.3 % (45.0-75.0) Lymphocytes (%) (Auto) 28.1 % (20.0-45.0) Monocytes (%) (Auto) 10.7 % (1.0-10.0) H Eosinophils (%) (Auto) 1.3 % (0.0-3.0) Basophils (%) (Auto) 0.6 % (0.0-2.0) Sodium Level 140 MMOL/L (136-145) Potassium Level 3.5 MMOL/L (3.5-5.1) Chloride Level 103 MMOL/L (98-107) Carbon Dioxide Level 28 MMOL/L (21-32) Anion Gap 9 mmol/L (5-15) Blood Urea Nitrogen 7 mg/dL (7-18) Creatinine 0.9 MG/DL (0.55-1.30) Estimat Glomerular Filtration Rate > 60 mL/min (>60) Glucose Level 96 MG/DL (74-106) Uric Acid 2.3 MG/DL (2.6-7.2) L Calcium Level 8.6 MG/DL (8.5-10.1) Phosphorus Level 3.2 MG/DL (2.5-4.9) Magnesium Level 1.8 MG/DL (1.8-2.4) Total Bilirubin 0.4 MG/DL (0.2-1.0) Gamma Glutamyl Transpeptidase 12 U/L (5-85) Aspartate Amino Transf (AST/SGOT) 60 U/L (15-37) H Alanine Aminotransferase (ALT/SGPT) 51 U/L (12-78) Alkaline Phosphatase 50 U/L (46-116) Total Creatine Kinase 2528 U/L (26-308) H C-Reactive Protein, Quantitative 4.7 mg/dL (0.00-0.90) H Total Protein 6.4 G/DL (6.4-8.2) Albumin 3.0 G/DL (3.4-5.0) L Globulin 3.4 g/dL Albumin/Globulin Ratio 0.9 (1.0-2.7) L Current Medications Medications (Trade) Dose Ordered Sig/Olivia Route PRN Reason Start Time Stop Time Status Last Admin Dose Admin Acetaminophen (Tylenol) 650 mg Q4H PRN ORAL Mild Pain/Temp > 100.5 08/19/18 00:23 09/16/18 20:22 Albuterol/ Ipratropium (Albuterol/ Ipratropium) 3 ml Q4H PRN HHN Shortness of Breath 08/17/18 15:18 08/22/18 15:17 Ceftriaxone Sodium 2 gm/ Dextrose 55 ml @ 110 mls/hr EVERY 12 HOURS IVPB 08/17/18 21:00 08/23/18 12:59 08/18/18 20:14 Dextrose (Dextrose 50%) 25 ml Q30M PRN IV Hypoglycemia 08/17/18 15:30 09/14/18 07:59 Dextrose (Dextrose 50%) 50 ml Q30M PRN IV Hypoglycemia 08/17/18 15:30 09/14/18 07:59 Dextrose/ Electrolytes 1,000 ml @ 50 mls/hr Q20H IV 08/17/18 15:16 09/16/18 15:15 08/18/18 11:16 Heparin Sodium (Porcine) (Heparin 5000 units/ml) 5,000 units EVERY 12 HOURS SUBQ 08/17/18 21:00 09/14/18 08:59 08/18/18 20:24 Lorazepam (Ativan 2mg/ml 1ml) 2 mg Q2H PRN IV agitation 08/17/18 15:18 08/24/18 15:17 Morphine Sulfate (Morphine Sulfate) 4 mg Q4H PRN IVP Severe Pain (Pain Scale 7-10) 08/17/18 15:18 08/24/18 15:17 Ondansetron HCl (Zofran) 4 mg Q6H PRN IVP Nausea & Vomiting 08/17/18 15:18 09/16/18 15:17 Pantoprazole (Protonix) 40 mg DAILY IVP 08/19/18 09:00 09/14/18 20:59 Vancomycin HCl (Vanco rx to dose) 1 ea DAILY PRN MISC Per rx protocol 08/18/18 09:00 09/15/18 12:14 Vancomycin HCl 1 gm/Dextrose 275 ml @ 183.708 mls/hr Q6HR IVPB 08/18/18 18:00 08/23/18 17:59 08/19/18 06:13 Marcio Gu MD Aug 19, 2018 08:38
[2018-08-19] MEDS ORDERED: Pantoprazole Inj IVP SCH (09:00)
[2018-08-19] MEDS: cefTRIAXone 2 GM in D5W 55 ML IVPB SCH ×2 (09:17→23:47)
[2018-08-19] MEDS: Heparin 5000 units/ml inj SUBQ SCH (09:43)
--- NOTE | 2018-08-19 09:44 | NUR ---
ST NOTE: BEDSIDE SWALLOW EVAL RECEIVED BEDSIDE SWALLOW EVAL ORDER CHART REVIEWED PRIOR THE EVALUATION PT IS A 28-YEAR-OLD MALE WHO WAS ADMITTED FOR HYPONATREMIA. SEIZURE ACTIVITIES WAS NOTED UPON ARRIVAL AT ER, PT WAS INTUBATED DUE TO ACUTE RESP FAILURE ON 08/15/18 AND EXTUBATED ON 08/16/18. DYSPHAGIA RISK FACTORS: ACUTE RESP FAILURE, S/P INTUBATION(1 DAY), ACUTE METABOLIC ENCEPHALOPATHY, AMS, ? DRUG ABUSE. PER CXR: Improved bilateral airspace opacities with left lung clear. Mild residual medial right lower lung opacities. HEAD CT: Normal CT scan of the head without contrast material. Incidental finding of sinus disease PLOF: PT RESIDES AT HOME WITH HIS ROOMMATE. PT IS FULL CODE. CURRENT STATUS: PT IS ON AIRBORNE AND CONTACT PRECAUTIONS(R/O MEASLES). PT SEEN AT BEDSIDE IN AM. ALERT, COOPERATIVE, ORIENT X 3(UNABLE TO RECALL WHAT HAPPENED), FOLLOWS DIRECTIONS. SLOW RESPONSE NOTED. DENIED ANY SWALLOWING DIFFICULTIES, NO SORE THROAT NOTED. GIVEN PO TRIALS: THIN(3oz-SELF) MEGHA PROTOCOL, PUREE(TSP) AND CRACKER INITIAL IMPRESSION: GOOD DENTITION, GOOD LABIAL AND LINGUAL MOVEMENT AND STRENGTH GOOD MASTICATION TIME, AND GOOD ORAL TRANSIT TIME AND OROPHARYNGEAL TRANSIT TIME, ADEQUATE LARYNGEAL ELEVATION, NO OVERT S/S OF ASPIRATION. OVERALL, PT'S SWALLOWING SEEMS FUNCTIONAL. RECOMMENDATIONS: 1. SLOWLY INITIATE SOFT, EASY CHEW WITH THIN LIQUIDS DIET 2. ASPIRATION PRECAUTIONS WITH SUPERVISION 3. SPEECH/LANGUAGE/COGNITIONS EVAL AND TX 4. SWALLOW MANAGEMENT(PENDING MRI TO BE DONE, MODIFIED BARIUM SWALLOW STUDY IF NEEDED). D/W PT AND RNNICOLASA. POSTED ASPIRATION PRECAUTIONS SIGN.
--- NOTE | 2018-08-19 11:05 | Diagnostic Imaging Report ---
APPROVED REPORT CPT Code: 35344 Vascular Symptoms Comments: Altered LOC CAROTID (BILATERAL) - Imaging reveals no significant plaque within the right and left extracranial carotid arteries. The Doppler spectral flow analysis is within normal limits throughout the extracranial carotid arteries bilaterally. VERTEBRAL/SUBCLAVIAN- The vertebral and subclavian arteries are within normal limits.
--- NOTE | 2018-08-19 11:19 | NUR ---
RD ASSESSMENT & RECOMMENDATIONS SEE CARE ACTIVITY FOR COMPLETE ASSESSMENT DAILY ESTIMATED NEEDS: Needs based on pulmonary/ 74kg 25-30 kcals/kg [id number] total kcals 1-1.5 g protein/kg 74-111 g total protein Fluid per MD NUTRITION DIAGNOSIS: 1) Swallowing difficulty R/T respiratory status as evidenced by s/p extubation, evaluated by GLASS WOOL BLANKET MACHINE FEEDER-> cleared for soft easy chew + thin liquids. 2) Altered nutrition related lab values R/T clinical status as evidenced by critically low Na (116*-> wnl), low osmolality (243, not updated), low K (2.8-> wnl), low mag (1.3-> wnl), elev BG (187-> wnl) CURRENT DIET:CLD PO DIET RECOMMENDATIONS: LOW NA diet / texture per GLASS WOOL BLANKET MACHINE FEEDER ADDITIONAL RECOMMENDATIONS: 1) Calibrated bedscale wt for accurate CBW 2) Monitor lytes, replete as needed 3) A1C for eval of glycemic control 4) Monitor BGs, add SSI as needed. 5) Monitor tolerance to advanced diet, need for snacks/ supplements
[2018-08-19 12:00] VITALS: BP 122/80
--- NOTE | 2018-08-19 12:00 | NUR ---
NURSE NOTES: PT AWAKE AND ALERT X3. FATIGUED. ABLE TO ANSWER RN'S QUESTIONS. PT AMBULATES WITH SUPERVISION AND MINIMAL ASSIST. PT STATES HE "SOMETIMES FEELS DIZZY". RN EDUCATED PT TO NOT AMBULATE WHEN FEELING DIZZY, CALL STAFF FOR ASSIST. PT REPLIES "I KNOW BUT I'M STUBBORN". RN EDUCATED PT ON FALL/SAFETY PRECAUTIONS. PT NODS IN UNDERSTANDING. PT ABLE TO DEMONSTRATE HOW TO USE CALL LIGHT TO CALL FOR ASSISTANCE. BED IN LOWEST POSITION WITH BEDSIDE RAILS X2 RAISED. BED ALARM ON. CALL LIGHT WITHIN REACH. UNABLE TO MOVE PT CLOSER TO NURSE'S STATION DUE TO AIRBORNE PRECAUTIONS. WILL CONTINUE TO MONITOR.
--- NOTE | 2018-08-19 12:22 | NUR ---
*-* INSURANCE *-* ALL CLINICALS FAXED TO: [facility] P:[phone] F:[phone] RE#[id number]
--- NOTE | 2018-08-19 13:21 | NUR ---
CARBIDE TOOL MAKERPILING CUTTER SI:LACTIC ACIDOSIS . SEPSIS . RASH VS: BP 145/59, P 87, T 99.1, RR 18, SpO2 98 on 3.0L O2 NC Hgb 4.12, Hct 37.1, Hgb 12.5 IS:PROTONIX 40mg IVP VANCOMYCIN 275ml IVPB CEFTRIAXONE 55ml IVPB HEPARIN SUBQ ZOFRAN 4mg MED/SURG STATUS WAITING FOR THROAT AND URINE SPECIMENS FOR MEASLES PCR TO BE SENT TO DEPT HEALTH
--- NOTE | 2018-08-19 14:23 | Nephrology Progress Note ---
Assessment/Plan Problem List: (1) Hyponatremia (2) Hypokalemia (3) Acute respiratory failure (4) Sepsis Assessment Hyponatremia likely SIADH Encephalopathy Hypokalemia Respiratory failure acute lactic acidosis / sepsis / Rash Sz Plan Dc barron and NGt on regular diet monitor CK D5NS DC barron NGT Mag and Phos , K supplement as needed Vent support Per ID Subjective ROS Limited/Unobtainable: No Objective Objective Last 24 Hour Vital Signs Date Time Temp Pulse Resp B/P (MAP) Pulse Ox O2 Delivery O2 Flow Rate FiO2 08/19/18 12:00 99.1 87 18 122/80 (94) 97 08/19/18 08:00 98.3 76 19 114/59 (77) 96 76 08/19/18 07:55 Nasal Cannula 3.0 32 08/19/18 07:55 98 Nasal Cannula 3.0 32 08/19/18 04:15 Nasal Cannula 3.0 Nasal Cannula 3.0 08/19/18 00:14 99.2 77 19 105/67 (80) 96 08/18/18 23:57 Nasal Cannula 3.0 Nasal Cannula 3.0 08/18/18 20:31 94 Room Air 21 08/18/18 20:31 Room Air 21 08/18/18 20:00 100.6 85 18 109/64 (79) 96 08/18/18 20:00 Nasal Cannula 3.0 Nasal Cannula 3.0 08/18/18 16:00 Nasal Cannula 3.0 Nasal Cannula 3.0 Intake and Output 08/18/18 08/19/18 19:00 07:00 Intake Total 50 ml 1400.000 ml Output Total 450 ml Balance -400 ml 1400.000 ml Intake Oral 720 ml IV Total 50 ml 680.000 ml Output Urine Total 450 ml # Voids 3 # Bowel Movements 3 Laboratory Tests 08/19/18 05:15: White Blood Count 6.4, Red Blood Count 4.12L, Hemoglobin 12.5L, Hematocrit 37.1L , Mean Corpuscular Volume 90, Mean Corpuscular Hemoglobin 30.3, Mean Corpuscular Hemoglobin Concent 33.7, Red Cell Distribution Width 11.9, Platelet Count 227, Mean Platelet Volume 7.9, Neutrophils (%) (Auto) 59.3, Lymphocytes (% ) (Auto) 28.1, Monocytes (%) (Auto) 10.7H, Eosinophils (%) (Auto) 1.3, Basophils (%) (Auto) 0.6, Sodium Level 140, Potassium Level 3.5, Chloride Level 103, Carbon Dioxide Level 28, Anion Gap 9, Blood Urea Nitrogen 7, Creatinine 0.9 , Estimat Glomerular Filtration Rate > 60, Glucose Level 96, Uric Acid 2.3L, Calcium Level 8.6, Phosphorus Level 3.2, Magnesium Level 1.8, Total Bilirubin 0.4, Gamma Glutamyl Transpeptidase 12, Aspartate Amino Transf (AST/SGOT) 60H, Alanine Aminotransferase (ALT/SGPT) 51, Alkaline Phosphatase 50, Total Creatine Kinase 2528H, C-Reactive Protein, Quantitative 4.7H, Total Protein 6.4, Albumin 3.0L, Globulin 3.4, Albumin/Globulin Ratio 0.9L 08/19/18 10:55: Vancomycin Level Trough 17.2H Height (Feet): 6 Height (Inches): 0.00 Weight (Pounds): 132 General Appearance: no apparent distress Cardiovascular: normal rate Respiratory/Chest: lungs clear Abdomen: soft Objective no change Robbi Newton MD Aug 19, 2018 14:23
[2018-08-19 16:00] VITALS: BP 163/80
[2018-08-19] MEDS ORDERED: Gadavist 7.5mMol/7.5ml vial IV PRN (16:00)
[2018-08-19] MEDS: D5NS w/KCl 40mEq 1000ml 1,000 ML IV SCH (16:18)
--- NOTE | 2018-08-19 17:18 | NUR ---
NURSE NOTES: PT'S IV ACCESS FOUND ON FLOOR. WHEN RN ASKED PT WHAT HAPPENED, PT STATES HE PULLED ON THE IV WHEN WALKING TO THE BATHROOM. RN INSTRUCTED PT TO CALL RN TO UNHOOK FROM IV OR PT CAN TAKE IV POLE WITH HIM TO THE BATHROOM. PT REPLIES TO RN "I KNOW, BUT I'M STUBBORN". PT EDUCATED ON BLEEDING PRECAUTIONS DUE TO ANTICOAGULANT THERAPY. RN INSERTED 2 NEW IV ACCESS. IN NO APPARENT DISTRESS AT THIS TIME. WILL CONTINUE TO MONITOR.
--- NOTE | 2018-08-19 17:58 | Internal Med Progress Note ---
Subjective Date of Service: Aug 19, 2018 Physician Name Kishor Maddox Attending Physician Cash Morel MD Current Medications Medications (Trade) Dose Ordered Sig/Olivia Route PRN Reason Start Time Stop Time Status Last Admin Dose Admin Acetaminophen (Tylenol) 650 mg Q4H PRN ORAL Mild Pain/Temp > 100.5 08/19/18 00:23 09/16/18 20:22 08/19/18 09:35 Albuterol/ Ipratropium (Albuterol/ Ipratropium) 3 ml Q4H PRN HHN Shortness of Breath 08/17/18 15:18 08/22/18 15:17 Ceftriaxone Sodium 2 gm/ Dextrose 55 ml @ 110 mls/hr EVERY 12 HOURS IVPB 08/17/18 21:00 08/23/18 12:59 08/19/18 09:17 Dextrose (Dextrose 50%) 25 ml Q30M PRN IV Hypoglycemia 08/17/18 15:30 09/14/18 07:59 Dextrose (Dextrose 50%) 50 ml Q30M PRN IV Hypoglycemia 08/17/18 15:30 09/14/18 07:59 Dextrose/ Electrolytes 1,000 ml @ 75 mls/hr [id number] IV 08/19/18 15:30 09/18/18 15:29 08/19/18 16:18 Gadobutrol (Gadavist) 7.5 mmol NOW PRN IV Radiology Procedure 08/19/18 16:00 08/19/18 23:59 Heparin Sodium (Porcine) (Heparin 5000 units/ml) 5,000 units EVERY 12 HOURS SUBQ 08/17/18 21:00 09/14/18 08:59 08/19/18 09:43 Lorazepam (Ativan 2mg/ml 1ml) 2 mg Q2H PRN IV agitation 08/17/18 15:18 08/24/18 15:17 Morphine Sulfate (Morphine Sulfate) 4 mg Q4H PRN IVP Severe Pain (Pain Scale 7-10) 08/17/18 15:18 08/24/18 15:17 Ondansetron HCl (Zofran) 4 mg Q6H PRN IVP Nausea & Vomiting 08/17/18 15:18 09/16/18 15:17 08/19/18 11:48 Pantoprazole (Protonix) 40 mg EVERY 12 HOURS ORAL 08/19/18 21:00 09/18/18 20:59 Vancomycin HCl (Vanco rx to dose) 1 ea DAILY PRN MISC Per rx protocol 08/18/18 09:00 09/15/18 12:14 Vancomycin HCl 1 gm/Dextrose 275 ml @ 183.708 mls/hr Q6HR IVPB 08/18/18 18:00 08/23/18 17:59 08/19/18 13:24 Allergies: Coded Allergies: No Known Allergies (Unverified , 05/24/17) UNABLE TO ASSESS (Unverified , 08/15/18) ROS Limited/Unobtainable: Yes Subjective 28 YO M admitted with alerted mental status and probable drug overdose. Now respiratory failure, hyponatremia and rhabdomyolysis. Cover for Int med-DR Morel. Objective Last Vital Signs Date Time Temp Pulse Resp B/P (MAP) Pulse Ox O2 Delivery O2 Flow Rate FiO2 08/19/18 16:00 98.0 66 19 163/80 (107) 95 08/19/18 09:00 Room Air Room Air 08/19/18 07:55 3.0 32 Laboratory Tests Test 08/19/18 05:15 08/19/18 10:55 White Blood Count 6.4 K/UL (4.8-10.8) Red Blood Count 4.12 M/UL (4.70-6.10) L Hemoglobin 12.5 G/DL (14.2-18.0) L Hematocrit 37.1 % (42.0-52.0) L Mean Corpuscular Volume 90 FL (80-99) Mean Corpuscular Hemoglobin 30.3 PG (27.0-31.0) Mean Corpuscular Hemoglobin Concent 33.7 G/DL (32.0-36.0) Red Cell Distribution Width 11.9 % (11.6-14.8) Platelet Count 227 K/UL (150-450) Mean Platelet Volume 7.9 FL (6.5-10.1) Neutrophils (%) (Auto) 59.3 % (45.0-75.0) Lymphocytes (%) (Auto) 28.1 % (20.0-45.0) Monocytes (%) (Auto) 10.7 % (1.0-10.0) H Eosinophils (%) (Auto) 1.3 % (0.0-3.0) Basophils (%) (Auto) 0.6 % (0.0-2.0) Sodium Level 140 MMOL/L (136-145) Potassium Level 3.5 MMOL/L (3.5-5.1) Chloride Level 103 MMOL/L (98-107) Carbon Dioxide Level 28 MMOL/L (21-32) Anion Gap 9 mmol/L (5-15) Blood Urea Nitrogen 7 mg/dL (7-18) Creatinine 0.9 MG/DL (0.55-1.30) Estimat Glomerular Filtration Rate > 60 mL/min (>60) Glucose Level 96 MG/DL (74-106) Uric Acid 2.3 MG/DL (2.6-7.2) L Calcium Level 8.6 MG/DL (8.5-10.1) Phosphorus Level 3.2 MG/DL (2.5-4.9) Magnesium Level 1.8 MG/DL (1.8-2.4) Total Bilirubin 0.4 MG/DL (0.2-1.0) Gamma Glutamyl Transpeptidase 12 U/L (5-85) Aspartate Amino Transf (AST/SGOT) 60 U/L (15-37) H Alanine Aminotransferase (ALT/SGPT) 51 U/L (12-78) Alkaline Phosphatase 50 U/L (46-116) Total Creatine Kinase 2528 U/L (26-308) H C-Reactive Protein, Quantitative 4.7 mg/dL (0.00-0.90) H Total Protein 6.4 G/DL (6.4-8.2) Albumin 3.0 G/DL (3.4-5.0) L Globulin 3.4 g/dL Albumin/Globulin Ratio 0.9 (1.0-2.7) L Vancomycin Level Trough 17.2 ug/mL (5.0-12.0) H Microbiology Date/Time Source Procedure Growth Status 08/17/18 11:00 Cerebral Spinal Fluid Gram Stain - Final Resulted 08/17/18 11:00 Cerebral Spinal Fluid CSF Culture - Preliminary NO GROWTH AFTER 48 HOURS Resulted Intake and Output 08/18/18 08/19/18 19:00 07:00 Intake Total 50 ml 1400.000 ml Output Total 450 ml Balance -400 ml 1400.000 ml Intake Oral 720 ml IV Total 50 ml 680.000 ml Output Urine Total 450 ml # Voids 3 # Bowel Movements 3 Objective General Appearance: WD/WN, lethargic EENT: PERRL/EOMI, normal ENT inspection Neck: non-tender, normal alignment, supple, normal inspection Cardiovascular: normal peripheral pulses, normal rate, regular rhythm, no gallop/murmur, no JVD Respiratory/Chest: Nasal canula; respiratory distress, accessory muscle use, crackles/rales, rhonchi - bilaterally, expiratory wheezing Abdomen: normal bowel sounds, non tender, soft, no organomegaly, no mass, abnormal bowel sounds Extremities: normal range of motion, non-tender Edema: trace edema Neurologic: airport operations officer II-XII grossly normal, disoriented Skin: normal pigmentation, warm/dry Assessment/Plan Problem List: (1) Seizure Assessment & Plan: Due to hyponatremia. See neurology note. (2) Hyponatremia Assessment & Plan: Slow sodium replacement IV (3) Hypokalemia (4) Acute respiratory failure Assessment & Plan: Cont mech vent per pulmonary (5) Acute metabolic encephalopathy (6) Rhabdomyolysis Assessment & Plan: See nephrology note. Cont IV fluids (7) Overdose Assessment & Plan: Possibly to ecstasy-hyponatremia and seizures Kishor Maddox MD Aug 19, 2018 17:58
--- NOTE | 2018-08-19 19:11 | NUR ---
HAND-OFF: Report given to Yuliana PAREKH RN.
[2018-08-19] MEDS ORDERED: NS 500ML ONE (21:34)
[2018-08-19] MEDS ORDERED: Tubing IV Secondary IV ONE (21:34)
[2018-08-19] MEDS ORDERED: NS 275ml ONE (21:46)
--- NOTE | 2018-08-19 23:43 | Neurology Progress Note ---
Interim History Interim History ROS Limited/Unobtainable: Yes Complaints: AMS Events: Extubated, able to say his own name, confused, moving all 4 in bed Interim History Now in isolation room outside of ICU Review of Systems All Systems: reviewed and negative except above Objective Physical Exam Last Vital Signs Date Time Temp Pulse Resp B/P (MAP) Pulse Ox O2 Delivery O2 Flow Rate FiO2 08/19/18 20:11 Nasal Cannula 3.0 32 08/19/18 20:11 97 08/19/18 16:00 98.0 66 19 163/80 (107) Laboratory Tests Test 08/19/18 05:15 08/19/18 10:55 White Blood Count 6.4 K/UL (4.8-10.8) Red Blood Count 4.12 M/UL (4.70-6.10) L Hemoglobin 12.5 G/DL (14.2-18.0) L Hematocrit 37.1 % (42.0-52.0) L Mean Corpuscular Volume 90 FL (80-99) Mean Corpuscular Hemoglobin 30.3 PG (27.0-31.0) Mean Corpuscular Hemoglobin Concent 33.7 G/DL (32.0-36.0) Red Cell Distribution Width 11.9 % (11.6-14.8) Platelet Count 227 K/UL (150-450) Mean Platelet Volume 7.9 FL (6.5-10.1) Neutrophils (%) (Auto) 59.3 % (45.0-75.0) Lymphocytes (%) (Auto) 28.1 % (20.0-45.0) Monocytes (%) (Auto) 10.7 % (1.0-10.0) H Eosinophils (%) (Auto) 1.3 % (0.0-3.0) Basophils (%) (Auto) 0.6 % (0.0-2.0) Sodium Level 140 MMOL/L (136-145) Potassium Level 3.5 MMOL/L (3.5-5.1) Chloride Level 103 MMOL/L (98-107) Carbon Dioxide Level 28 MMOL/L (21-32) Anion Gap 9 mmol/L (5-15) Blood Urea Nitrogen 7 mg/dL (7-18) Creatinine 0.9 MG/DL (0.55-1.30) Estimat Glomerular Filtration Rate > 60 mL/min (>60) Glucose Level 96 MG/DL (74-106) Uric Acid 2.3 MG/DL (2.6-7.2) L Calcium Level 8.6 MG/DL (8.5-10.1) Phosphorus Level 3.2 MG/DL (2.5-4.9) Magnesium Level 1.8 MG/DL (1.8-2.4) Total Bilirubin 0.4 MG/DL (0.2-1.0) Gamma Glutamyl Transpeptidase 12 U/L (5-85) Aspartate Amino Transf (AST/SGOT) 60 U/L (15-37) H Alanine Aminotransferase (ALT/SGPT) 51 U/L (12-78) Alkaline Phosphatase 50 U/L (46-116) Total Creatine Kinase 2528 U/L (26-308) H C-Reactive Protein, Quantitative 4.7 mg/dL (0.00-0.90) H Total Protein 6.4 G/DL (6.4-8.2) Albumin 3.0 G/DL (3.4-5.0) L Globulin 3.4 g/dL Albumin/Globulin Ratio 0.9 (1.0-2.7) L Vancomycin Level Trough 17.2 ug/mL (5.0-12.0) H General: well developed, well nourished Head: normocophalic Neck: no rigidity EENT: benign Neurologic Exam Mental Status: awake, alert, oriented x4, other - Improved focus on exam although still with roving eye movements occasionally and although oriented to time, place/ person, he demonstrates Speech: other Language: other Cranial Nerves III, IV, : PERRLA, EOMI, pupils Cranial Nerve V: normal facial sensations Cranial Nerve VII: no facial asymmetry Cranial Nerve VIII: normal hearing Cranial Nerve X: no voice hoarseness Cranial Nerve XI: SCM symmetric Cranial Nerve XII: tongue midline Motor System: normal muscle tone, strength 5/5 Sensory: normal pinprick, normal light touch, normal position sense Deep Tendon Reflexes: 2+ bicep (L), 2+ bicep (R), 2+ tricep (L), 2+ tricep (R) , 2+ brachioradialis (L), 2+ brachioradialis (R), 2+ knee (L), 2+ knee (R), 2+ ankle (L), 2+ ankle (R) Reflexes: flexor plantar (L), flexor plantar (R); extensor plantar (L), extensor plantar (R) Gait: other - Ataxic / imbalanced gait Impression/Recommendations Problems: (1) Hyponatremia Assessment & Plan: Slowly correct Na to 135-145 with IVF (2) Hypokalemia Assessment & Plan: Correct/ replete as appropriate. (3) Acute respiratory failure Assessment & Plan: RT follow up PT/OT as able. (4) Acute metabolic encephalopathy Assessment & Plan: AMS secondary to hyponatremia/ hypokalemia/ rhabdomyolysis IVF with correction of lytes Q4 hour neuro checks Maintain Normothermia Maintain normoglycemia with ISS as needed. CT Brain NAD MRI Brain w/wo contrast when able to safely scan patient and follow with LP if inconclusive. Status: stable, unchanged Recommendations Q4 Hour Neuro Obs MRI BRAIN - still pending May need sedation with 1mg IV ativan for good study Prevent further disorientation: Maintain good sleep hygiene by darkening room and making quiet during evening hours Encourage visits from family Frequently reorient patient Social/ Case Management for discharge care and disposition Recommend [facility] consult Kiana Shaikh N.P. Aug 19, 2018 23:43
[2018-08-20] MEDS: Vancomycin 1gm/D5W 275ml IVPB SCH ×4 (00:46→06:46)
[2018-08-20] MEDS: D5NS w/KCl 40mEq 1000ml 1,000 ML IV SCH (04:50)
[2018-08-20 07:09] LABS: BASOPHILS % (AUTO) 0.9 % (0.0-2.0); EOSINOPHILS % (AUTO) 2.5 % (0.0-3.0); HEMATOCRIT 38.1 % (42.0-52.0); HEMOGLOBIN 12.8 G/DL (14.2-18.0); LYMPHOCYTES % (AUTO) 31.1 % (20.0-45.0); MEAN CORPUSCULAR VOLUME 89 FL (80-99); MONOCYTES % (AUTO) 6.8 % (1.0-10.0); NEUTROPHILS % (AUTO) 58.8 % (45.0-75.0); PLATELET COUNT 250 K/UL (150-450); RED BLOOD COUNT 4.29 M/UL (4.70-6.10); RED CELL DISTRIBUTION WIDTH 11.7 % (11.6-14.8); WHITE BLOOD COUNT 6.1 K/UL (4.8-10.8)
[2018-08-20 07:21] LABS: ALANINE AMINOTRANSFERASE 51 U/L (12-78); ALBUMIN 3.2 G/DL (3.4-5.0); ALBUMIN/GLOBULIN RATIO 0.9 (1.0-2.7); ALKALINE PHOSPHATASE 53 U/L (46-116); ANION GAP 10 mmol/L (5-15); ASPARTATE AMINO TRANSFERASE 43 U/L (15-37); BILIRUBIN,TOTAL 0.3 MG/DL (0.2-1.0); BLOOD UREA NITROGEN 8 mg/dL (7-18); CALCIUM 8.8 MG/DL (8.5-10.1); CARBON DIOXIDE 27 MMOL/L (21-32); CHLORIDE 103 MMOL/L (98-107); CREATININE 1.1 MG/DL (0.55-1.30); PHOSPHORUS 3.7 MG/DL (2.5-4.9); POTASSIUM 3.5 MMOL/L (3.5-5.1); SODIUM 140 MMOL/L (136-145)
--- NOTE | 2018-08-20 07:30 | NUR ---
NURSE NOTES: RN received pt sleeping in bed. No acute distress or SOB. Bed in low, locked position, call light within reach. Pt removed IV. RN educated pt on the importance of receiving medications as ordered. RN advised pt to use call light to call RN if needed to go to the bathroom, to not self remove IV. Pt verbalized understanding.
--- NOTE | 2018-08-20 08:00 | NUR ---
HAND-OFF: Report given to EDWAR Dinero.
[2018-08-20] MEDS: cefTRIAXone 2 GM in D5W 55 ML IVPB SCH (09:29)
[2018-08-20] MEDS: Heparin 5000 units/ml inj SUBQ SCH ×2 (09:30)
--- NOTE | 2018-08-20 10:55 | Infectious Diseases Prog Note ---
Assessment/Plan Assessment/Plan Abx: None Assessment: Sepsis -u/a neg -CXR: Left perihilar mild interstitial edema -Bcx p Viral syndrome Macular rash- Rash suggestive of measles given distribution but hx is limited and differential diagnosis is broad such as Measles, Acute HIV, Influenza, Meningococcemia/Meningococcal meningitis given altered mental status Rubeola IgM (-) IgG (+) - Patient reports getting childhood vaccinations Acute encephalopathy s/p intubation for airway protection -CT head: Normal CT scan of the head without contrast material.Incidental finding of sinus disease -UDS, ethanol level neg - Now extuated LP 08/17/18 - WBCs 0, Prot 30, Glu 81, Cx NGTD 72hr, VDRL (-) Lactic acidosis Seizure Hyponatremia DON, improving Drug abuse HIV (-) Plan: - Monitor off abx - 08/20/18 S/P Vancomycin #4 and Ceftriaxone #4 to cover for meningitis -f/u cx -Monitor CBC/CMP, temperatures -VL, RPR -We have contacted [facility] of [facility] and have ordered throat and urine specimens for MEasles PCR to be sent to Dept of Health. Will continue to follow along with you. Subjective Allergies: Coded Allergies: No Known Allergies (Unverified , 05/24/17) UNABLE TO ASSESS (Unverified , 08/15/18) Subjective Awake, feeling ebtter Afebrile 24hr No Leukocytosis Objective Vital Signs Last 24 Hour Vital Signs Date Time Temp Pulse Resp B/P (MAP) Pulse Ox O2 Delivery O2 Flow Rate FiO2 08/20/18 07:17 98.0 08/19/18 21:00 Room Air Room Air 08/19/18 20:11 Nasal Cannula 3.0 32 08/19/18 20:11 97 Nasal Cannula 3.0 32 08/19/18 16:00 98.0 66 19 163/80 (107) 95 08/19/18 12:00 99.1 87 18 122/80 (94) 97 Height (Feet): 6 Height (Inches): 0.00 Weight (Pounds): 134 Objective GENERAL: NAD HEENT NCAT, MMM, EOMI LUNGS: CTAB, No W HEART: S1, S2. Regular rhythm. No gallops. ABDOMEN: Soft, nondistended, and nontender. Positive bowel sounds. NEUROLOGIC: Awake and alert/oriented x 4 SKIN: Diffuse macular rash/erythema in the face area, trunk area improved Microbiology Date/Time Source Procedure Growth Status 08/17/18 11:00 Cerebral Spinal Fluid Gram Stain - Final Resulted 08/17/18 11:00 Cerebral Spinal Fluid CSF Culture - Preliminary NO GROWTH AFTER 72 HOURS Resulted Laboratory Tests Test 08/19/18 10:55 08/20/18 05:30 Vancomycin Level Trough 17.2 ug/mL (5.0-12.0) H White Blood Count 6.1 K/UL (4.8-10.8) Red Blood Count 4.29 M/UL (4.70-6.10) L Hemoglobin 12.8 G/DL (14.2-18.0) L Hematocrit 38.1 % (42.0-52.0) L Mean Corpuscular Volume 89 FL (80-99) Mean Corpuscular Hemoglobin 30.0 PG (27.0-31.0) Mean Corpuscular Hemoglobin Concent 33.7 G/DL (32.0-36.0) Red Cell Distribution Width 11.7 % (11.6-14.8) Platelet Count 250 K/UL (150-450) Mean Platelet Volume 6.5 FL (6.5-10.1) Neutrophils (%) (Auto) 58.8 % (45.0-75.0) Lymphocytes (%) (Auto) 31.1 % (20.0-45.0) Monocytes (%) (Auto) 6.8 % (1.0-10.0) Eosinophils (%) (Auto) 2.5 % (0.0-3.0) Basophils (%) (Auto) 0.9 % (0.0-2.0) Sodium Level 140 MMOL/L (136-145) Potassium Level 3.5 MMOL/L (3.5-5.1) Chloride Level 103 MMOL/L (98-107) Carbon Dioxide Level 27 MMOL/L (21-32) Anion Gap 10 mmol/L (5-15) Blood Urea Nitrogen 8 mg/dL (7-18) Creatinine 1.1 MG/DL (0.55-1.30) Estimat Glomerular Filtration Rate > 60 mL/min (>60) Glucose Level 115 MG/DL (74-106) H Uric Acid 2.2 MG/DL (2.6-7.2) L Calcium Level 8.8 MG/DL (8.5-10.1) Phosphorus Level 3.7 MG/DL (2.5-4.9) Total Bilirubin 0.3 MG/DL (0.2-1.0) Aspartate Amino Transf (AST/SGOT) 43 U/L (15-37) H Alanine Aminotransferase (ALT/SGPT) 51 U/L (12-78) Alkaline Phosphatase 53 U/L (46-116) Total Protein 6.6 G/DL (6.4-8.2) Albumin 3.2 G/DL (3.4-5.0) L Globulin 3.4 g/dL Albumin/Globulin Ratio 0.9 (1.0-2.7) L Current Medications Medications (Trade) Dose Ordered Sig/Olivia Route PRN Reason Start Time Stop Time Status Last Admin Dose Admin Acetaminophen (Tylenol) 650 mg Q4H PRN ORAL Mild Pain/Temp > 100.5 08/19/18 00:23 09/16/18 20:22 08/20/18 06:47 Albuterol/ Ipratropium (Albuterol/ Ipratropium) 3 ml Q4H PRN HHN Shortness of Breath 08/17/18 15:18 08/22/18 15:17 Ceftriaxone Sodium 2 gm/ Dextrose 55 ml @ 110 mls/hr EVERY 12 HOURS IVPB 08/17/18 21:00 08/23/18 12:59 08/20/18 09:29 Dextrose (Dextrose 50%) 25 ml Q30M PRN IV Hypoglycemia 08/17/18 15:30 09/14/18 07:59 Dextrose (Dextrose 50%) 50 ml Q30M PRN IV Hypoglycemia 08/17/18 15:30 09/14/18 07:59 Dextrose/ Electrolytes 1,000 ml @ 75 mls/hr [id number] IV 08/19/18 15:30 09/18/18 15:29 08/19/18 16:18 Heparin Sodium (Porcine) (Heparin 5000 units/ml) 5,000 units EVERY 12 HOURS SUBQ 08/17/18 21:00 09/14/18 08:59 08/20/18 09:30 Lorazepam (Ativan 2mg/ml 1ml) 2 mg Q2H PRN IV agitation 08/17/18 15:18 08/24/18 15:17 Morphine Sulfate (Morphine Sulfate) 4 mg Q4H PRN IVP Severe Pain (Pain Scale 7-10) 08/17/18 15:18 08/24/18 15:17 Ondansetron HCl (Zofran) 4 mg Q6H PRN IVP Nausea & Vomiting 08/17/18 15:18 09/16/18 15:17 08/19/18 11:48 Pantoprazole (Protonix) 40 mg EVERY 12 HOURS ORAL 08/19/18 21:00 09/18/18 20:59 08/20/18 09:30 Vancomycin HCl (Vanco rx to dose) 1 ea DAILY PRN MISC Per rx protocol 08/18/18 09:00 09/15/18 12:14 Vancomycin HCl 1 gm/Dextrose 275 ml @ 183.708 mls/hr Q6HR IVPB 08/18/18 18:00 08/23/18 17:59 08/20/18 06:46 Marcio Gu MD Aug 20, 2018 10:54
--- NOTE | 2018-08-20 11:46 | Internal Med Progress Note ---
Subjective Date of Service: Aug 20, 2018 Physician Name Kishor Maddox Attending Physician Cash Morel MD Current Medications Medications (Trade) Dose Ordered Sig/Olivia Route PRN Reason Start Time Stop Time Status Last Admin Dose Admin Acetaminophen (Tylenol) 650 mg Q4H PRN ORAL Mild Pain/Temp > 100.5 08/19/18 00:23 09/16/18 20:22 08/20/18 06:47 Albuterol/ Ipratropium (Albuterol/ Ipratropium) 3 ml Q4H PRN HHN Shortness of Breath 08/17/18 15:18 08/22/18 15:17 Dextrose (Dextrose 50%) 25 ml Q30M PRN IV Hypoglycemia 08/17/18 15:30 09/14/18 07:59 Dextrose (Dextrose 50%) 50 ml Q30M PRN IV Hypoglycemia 08/17/18 15:30 09/14/18 07:59 Dextrose/ Electrolytes 1,000 ml @ 75 mls/hr [id number] IV 08/19/18 15:30 09/18/18 15:29 08/19/18 16:18 Heparin Sodium (Porcine) (Heparin 5000 units/ml) 5,000 units EVERY 12 HOURS SUBQ 08/17/18 21:00 09/14/18 08:59 08/20/18 09:30 Lorazepam (Ativan 2mg/ml 1ml) 2 mg Q2H PRN IV agitation 08/17/18 15:18 08/24/18 15:17 Morphine Sulfate (Morphine Sulfate) 4 mg Q4H PRN IVP Severe Pain (Pain Scale 7-10) 08/17/18 15:18 08/24/18 15:17 Ondansetron HCl (Zofran) 4 mg Q6H PRN IVP Nausea & Vomiting 08/17/18 15:18 09/16/18 15:17 08/19/18 11:48 Pantoprazole (Protonix) 40 mg EVERY 12 HOURS ORAL 08/19/18 21:00 09/18/18 20:59 08/20/18 09:30 Allergies: Coded Allergies: No Known Allergies (Unverified , 05/24/17) UNABLE TO ASSESS (Unverified , 08/15/18) ROS Limited/Unobtainable: Yes Subjective 28 YO M admitted with alerted mental status and probable drug overdose. Now respiratory failure, hyponatremia and rhabdomyolysis. Cover for Int med-DR Morel. Less confused Objective Last Vital Signs Date Time Temp Pulse Resp B/P (MAP) Pulse Ox O2 Delivery O2 Flow Rate FiO2 08/20/18 07:17 98.0 08/19/18 21:00 Room Air Room Air 08/19/18 20:11 3.0 32 08/19/18 20:11 97 08/19/18 16:00 66 19 163/80 (107) Laboratory Tests Test 08/20/18 05:30 White Blood Count 6.1 K/UL (4.8-10.8) Red Blood Count 4.29 M/UL (4.70-6.10) L Hemoglobin 12.8 G/DL (14.2-18.0) L Hematocrit 38.1 % (42.0-52.0) L Mean Corpuscular Volume 89 FL (80-99) Mean Corpuscular Hemoglobin 30.0 PG (27.0-31.0) Mean Corpuscular Hemoglobin Concent 33.7 G/DL (32.0-36.0) Red Cell Distribution Width 11.7 % (11.6-14.8) Platelet Count 250 K/UL (150-450) Mean Platelet Volume 6.5 FL (6.5-10.1) Neutrophils (%) (Auto) 58.8 % (45.0-75.0) Lymphocytes (%) (Auto) 31.1 % (20.0-45.0) Monocytes (%) (Auto) 6.8 % (1.0-10.0) Eosinophils (%) (Auto) 2.5 % (0.0-3.0) Basophils (%) (Auto) 0.9 % (0.0-2.0) Sodium Level 140 MMOL/L (136-145) Potassium Level 3.5 MMOL/L (3.5-5.1) Chloride Level 103 MMOL/L (98-107) Carbon Dioxide Level 27 MMOL/L (21-32) Anion Gap 10 mmol/L (5-15) Blood Urea Nitrogen 8 mg/dL (7-18) Creatinine 1.1 MG/DL (0.55-1.30) Estimat Glomerular Filtration Rate > 60 mL/min (>60) Glucose Level 115 MG/DL (74-106) H Uric Acid 2.2 MG/DL (2.6-7.2) L Calcium Level 8.8 MG/DL (8.5-10.1) Phosphorus Level 3.7 MG/DL (2.5-4.9) Total Bilirubin 0.3 MG/DL (0.2-1.0) Aspartate Amino Transf (AST/SGOT) 43 U/L (15-37) H Alanine Aminotransferase (ALT/SGPT) 51 U/L (12-78) Alkaline Phosphatase 53 U/L (46-116) Total Protein 6.6 G/DL (6.4-8.2) Albumin 3.2 G/DL (3.4-5.0) L Globulin 3.4 g/dL Albumin/Globulin Ratio 0.9 (1.0-2.7) L Intake and Output 08/19/18 08/20/18 19:00 07:00 Intake Total 1303.708 ml 480 ml Balance 1303.708 ml 480 ml Intake Oral 240 ml 480 ml IV Total 1063.708 ml # Voids 4 # Bowel Movements 1 Objective General Appearance: WD/WN, lethargic EENT: PERRL/EOMI, normal ENT inspection Neck: non-tender, normal alignment, supple, normal inspection Cardiovascular: normal peripheral pulses, normal rate, regular rhythm, no gallop/murmur, no JVD Respiratory/Chest: Nasal canula; respiratory distress, accessory muscle use, crackles/rales, rhonchi - bilaterally, expiratory wheezing Abdomen: normal bowel sounds, non tender, soft, no organomegaly, no mass, abnormal bowel sounds Extremities: normal range of motion, non-tender Edema: trace edema 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 See neurology note. (2) Hyponatremia Assessment & Plan: Slow sodium replacement IV (3) Hypokalemia (4) Acute respiratory failure Assessment & Plan: Cont mech vent per pulmonary (5) Acute metabolic encephalopathy (6) Rhabdomyolysis Assessment & Plan: See nephrology note. Cont IV fluids (7) Overdose Assessment & Plan: Possibly to ecstasy-hyponatremia and seizures Assessment/Plan discharge planning Kishor Maddox MD Aug 20, 2018 11:46
--- NOTE | 2018-08-20 13:24 | Neurology Progress Note ---
Interim History Interim History ROS Limited/Unobtainable: Yes Complaints: AMS Events: Now in neg pressure room Review of Systems Neuro Review of Systems Unchanged MS- disinhibited, incontinent to urine / feces Objective Physical Exam Last Vital Signs Date Time Temp Pulse Resp B/P (MAP) Pulse Ox O2 Delivery O2 Flow Rate FiO2 08/20/18 10:02 Room Air 08/20/18 10:01 95 21 08/20/18 07:17 98.0 08/19/18 20:11 3.0 08/19/18 16:00 66 19 163/80 (107) Laboratory Tests Test 08/20/18 05:30 White Blood Count 6.1 K/UL (4.8-10.8) Red Blood Count 4.29 M/UL (4.70-6.10) L Hemoglobin 12.8 G/DL (14.2-18.0) L Hematocrit 38.1 % (42.0-52.0) L Mean Corpuscular Volume 89 FL (80-99) Mean Corpuscular Hemoglobin 30.0 PG (27.0-31.0) Mean Corpuscular Hemoglobin Concent 33.7 G/DL (32.0-36.0) Red Cell Distribution Width 11.7 % (11.6-14.8) Platelet Count 250 K/UL (150-450) Mean Platelet Volume 6.5 FL (6.5-10.1) Neutrophils (%) (Auto) 58.8 % (45.0-75.0) Lymphocytes (%) (Auto) 31.1 % (20.0-45.0) Monocytes (%) (Auto) 6.8 % (1.0-10.0) Eosinophils (%) (Auto) 2.5 % (0.0-3.0) Basophils (%) (Auto) 0.9 % (0.0-2.0) Sodium Level 140 MMOL/L (136-145) Potassium Level 3.5 MMOL/L (3.5-5.1) Chloride Level 103 MMOL/L (98-107) Carbon Dioxide Level 27 MMOL/L (21-32) Anion Gap 10 mmol/L (5-15) Blood Urea Nitrogen 8 mg/dL (7-18) Creatinine 1.1 MG/DL (0.55-1.30) Estimat Glomerular Filtration Rate > 60 mL/min (>60) Glucose Level 115 MG/DL (74-106) H Uric Acid 2.2 MG/DL (2.6-7.2) L Calcium Level 8.8 MG/DL (8.5-10.1) Phosphorus Level 3.7 MG/DL (2.5-4.9) Total Bilirubin 0.3 MG/DL (0.2-1.0) Aspartate Amino Transf (AST/SGOT) 43 U/L (15-37) H Alanine Aminotransferase (ALT/SGPT) 51 U/L (12-78) Alkaline Phosphatase 53 U/L (46-116) Total Protein 6.6 G/DL (6.4-8.2) Albumin 3.2 G/DL (3.4-5.0) L Globulin 3.4 g/dL Albumin/Globulin Ratio 0.9 (1.0-2.7) L General: well developed, well nourished Head: normocophalic Neck: no rigidity EENT: benign Neurologic Exam Mental Status: awake, alert, oriented x4, other - Improved focus on exam although still with roving eye movements occasionally and although oriented to time, place/ person, he demonstrates Speech: other Language: other Cranial Nerves III, IV, : PERRLA, EOMI, pupils Cranial Nerve V: normal facial sensations Cranial Nerve VII: no facial asymmetry Cranial Nerve VIII: normal hearing Cranial Nerve X: no voice hoarseness Cranial Nerve XI: SCM symmetric Cranial Nerve XII: tongue midline Motor System: normal muscle tone, strength 5/5 Sensory: normal pinprick, normal light touch, normal position sense Deep Tendon Reflexes: 2+ bicep (L), 2+ bicep (R), 2+ tricep (L), 2+ tricep (R) , 2+ brachioradialis (L), 2+ brachioradialis (R), 2+ knee (L), 2+ knee (R), 2+ ankle (L), 2+ ankle (R) Reflexes: flexor plantar (L), flexor plantar (R); extensor plantar (L), extensor plantar (R) Gait: other - Ataxic / imbalanced gait Impression/Recommendations Problems: (1) Hyponatremia Assessment & Plan: Slowly correct Na to 135-145 with IVF (2) Hypokalemia Assessment & Plan: Correct/ replete as appropriate. (3) Acute respiratory failure Assessment & Plan: RT follow up PT/OT as able. (4) Acute metabolic encephalopathy Assessment & Plan: AMS secondary to hyponatremia/ hypokalemia/ rhabdomyolysis IVF with correction of lytes Q4 hour neuro checks Maintain Normothermia Maintain normoglycemia with ISS as needed. CT Brain NAD LP Glucose elevated but no other abnormalities seen MRI Brain ordered Psych consult recommended Status: stable, unchanged Diagnostic Impression Patient still appears to have some cognitive slowing/ impairment Appears to be incontinent of feces/urine secondary to confusion Is ambulating- keeps removing IVs with Abx treatment Recommendations Q4 Hour Neuro Obs Prevent further disorientation: Maintain good sleep hygiene by darkening room and making quiet during evening hours Encourage visits from family Frequently reorient patient Social/ Case Management for discharge care and disposition Recommend Psych consult Kiana Shaikh N.P. Aug 20, 2018 13:24
--- NOTE | 2018-08-20 14:22 | NUR ---
*-* INSURANCE *-* ALL CLINICALS FAXED TO: [facility] P:[phone] F:[phone] RE#[id number]
[2018-08-20] MEDS ORDERED: Tubing IV Secondary IV ONE (15:34)
[2018-08-20] MEDS ORDERED: NS 275ml ONE ×2 (15:34)
[2018-08-20] MEDS ORDERED: D5W 275ml ONE (15:34)
--- NOTE | 2018-08-20 15:45 | NUR ---
NURSE NOTES: Pt discharged in stable condition. Vitals WNL, no distress. Pt IV and arm band removed. Discharge packet reviewed. Belongings accounted for with pt. Pt provided taxi voucher. RN escorted pt to taxi; pt ambulated with steady gait. Pt verbalized gratitude for care.
--- NOTE | 2018-08-21 11:44 | Discharge Summary ---
Discharge Summary Discharge Summary _ DATE OF ADMISSION: 08/15/2018 DATE OF DISCHARGE: 08/20/2018 ADMITTING MD: Dr. Cash Morel DISCHARGED BY: Dr. Dhruv Santiago CONSULTANTS: Dr. Dhruv Avila fiorellahiangel [facility] COURSE: Patient is a 28-year-old gentleman with unknown past medical history and past surgical history, who presented to the hospital via paramedics after roommate found the patient to be altered. The patient was nonverbal, pupils appeared dilated, he was confused and lethargic. Upon arrival to the ER, the patient had a seizure activity. On evaluation, he was found to have sodium of 116, potassium 2.8, chloride 81. Total CK was 789. Lactic acid was 2.9. TSH was normal. Urine drug screen was negative for salicylate, negative for acetaminophen, negative for alcohol, negative drug screen. CT of the head without contrast was normal. He was orally intubated to protect his airway. He was started on hypertonic saline and was admitted to ICU in critical condition. He was placed on seizure precautions neuro check every 4 hours. He was placed on n.p.o. He was given 3% saline solution. On review of medical records, patient was admitted in early 2018 for similar complaints of altered mental status, and at that time lumbar puncture and extensive workup was done and found patient to be under influence of drugs. On admission, he was found to have maculopapular rash in the face and torso. There was suspicion for measles. He was placed on airborne isolation. He was started empirically on IV vancomycin and ceftriaxone to cover for possible meningitis. [facility] was notified. Urine osmolality 228. Random urine sodium 39. Kidney function was monitored. He was given IV hydration. He was given electrolyte replacement. Total CK eventually down trended. Echocardiogram done showed EF of 55-60%, with normal left ventricular size, function and wall motion. Carotid duplex did not show any significant plaques. On 08/16/2018 he was extubated. A lumbar puncture was done on 08/17/2018. Opening pressure was 26 cm H2O. CSF count was low. CSF VDRL was nonreactive. CSF culture did not isolate any growth. NGT was discontinued. He was started on clear liquids. Speech evaluation done. He was eventually transferred out of ICU. He had low-grade fever although no leukocytosis. HIV screen was negative. Syphilis nonreactive. Hepatitis screen negative. Rubeola IgG positive, rubella IgM negative. Patient reported childhood vaccinations. Blood culture did not isolate any growth. Patient has less confused. He was tolerating soft, easy chew diet. Patient was eventually discharged home. Counseled against illicit drug use. He was provided a taxi voucher upon discharge. 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 DISCHARGE MEDICATIONS: Refer to Discharge Medication List. DISCHARGE INSTRUCTIONS: Follow-up in a week. I have been assigned to complete a discharge summary on this account, I was not involved with the patient's management. Kristen Lizama NP Aug 21, 2018 11:44
--- NOTE | 2018-08-21 14:11 | NUR ---
*-* INSURANCE *-* DISCHARGE SUMMARY FAXED TO: [facility] P:[phone] F:[phone] RE#[id number]
== END 2018-08-20 15:35 | disposition home or self-care (01) | DRG 871 ==
LOC: EDBD 02:57 → EMR 03:29 → EDBEDREQSVC 04:07 → EDBEDREQ 04:07 → ICU 04:26 → EDBEDREQ 04:44 → ICU 08-16 02:33 → 4E 08-17 14:50
PROC: 5A1945Z Respiratory Ventilation, 24-96 Consecutive Hours (ICD-10-PCS; principal; 2018-08-15)
PROC: 0BH17EZ Insertion of Endotracheal Airway into Trachea, Via Natural or Artificial Opening (ICD-10-PCS; principal; 2018-08-15)
PROC: 009U3ZX Drainage of Spinal Canal, Percutaneous Approach, Diagnostic (ICD-10-PCS; 2018-08-17)
DX: A41.9 Sepsis, unspecified organism (principal); J96.00 Acute respiratory failure, unspecified whether with hypoxia or hypercapnia; G93.41 Metabolic encephalopathy; E22.2 Syndrome of inappropriate secretion of antidiuretic hormone; E87.2 Acidosis; M62.82 Rhabdomyolysis; N17.9 Acute kidney failure, unspecified; E87.6 Hypokalemia; R56.9 Unspecified convulsions; R21 Rash and other nonspecific skin eruption; F19.10 Other psychoactive substance abuse, uncomplicated; B34.9 Viral infection, unspecified
CPT/HCPCS: 31500; 36415; 36600; 70450; 71045; 74018; 80053; 80061; 80202; 80307; 80329; 81001; 81003; 82310; 82330; 82533; 82550; 82746; 82803; 82945; 82977; 83605; 83615; 83735; 83930; 83935; 84100; 84157; 84300; 84439; 84443; 84478; 84481; 84550; 85025; 85610; 85651; 85730; 86140; 86592; 86703; 86705; 86709; 86765; 86803; 87040; 87070; 87081; 87205; 87340; 87536; 89051; 93005; 93306; 93880; 94002; 94003; 94664; 94760; 96361; 96365; 96375; 99291; 99292; J2405; J2765; J8499